=== PATIENT | female | born 1960 | race Caucasian/White ===

== ENCOUNTER 2016-09-25 17:04 | Inpatient (IN) | payer MEDICARE, MEDICAID ==
[~2016-09-25] VITALS: Ht 170.2 cm; Wt 148.3 kg
[2016-09-25 17:08] VITALS: BP 130/70; PULSE 74; RESP 15
[2016-09-25] MEDS ORDERED: Ondansetron 2 mg/mL 2 mL Inj IV PRN (18:45)
[2016-09-25 19:14] LABS: BASOPHILS % (AUTO) 0.1 % (0-3); MONOCYTES % (AUTO) 6.8 % (4-12); Mean Corpuscular Hemoglobin 27.7 pg (27.0-35.0); Mean Corpuscular Volume 94.3 fL (81-100); NEUTROPHILS % (AUTO) 69.2 % (40-74); Platelet Count 330 bil/L (150-400)
[2016-09-25 19:54] LABS: Magnesium 2.3 mg/dL (1.6-2.6)
[2016-09-25] MEDS ORDERED: Meropenem Inj 1,000 MG in IV Premix 1 EACH IV ONE (20:00)
[2016-09-25] MEDS ORDERED: Cefepime Inj 2 GM in IV Premix 1 EACH IV ONE (20:15)
[2016-09-25] MEDS ORDERED: ACET325T51 PO (20:39)
[2016-09-25] MEDS ORDERED: HYDR2TAB27 PO (20:39)
[2016-09-25] MEDS ORDERED: OXYB5TAB35 PO (20:39)
[2016-09-25] MEDS ORDERED: NA P133E23 RC (20:39)
[2016-09-25] MEDS ORDERED: MAGN400O4 PO (20:39)
[2016-09-25] MEDS ORDERED: ASPI-973 PO (20:39)
[2016-09-25] MEDS ORDERED: INSU100I18 SUBQ (20:39)
[2016-09-25] MEDS ORDERED: BISA10SU61 RC (20:39)
[2016-09-25] MEDS ORDERED: FRSM80T PO (20:39)
[2016-09-25] MEDS ORDERED: ATOR80TA77 PO (20:39)
[2016-09-25] MEDS ORDERED: INSU100V7 SUBQ (20:39)
[2016-09-25] MEDS ORDERED: ASCO500C6 PO (20:39)
[2016-09-25] MEDS ORDERED: DOCU250C2 PO (20:39)
[2016-09-25] MEDS ORDERED: IPRA3AMP IH (20:39)
[2016-09-25] MEDS ORDERED: HEPA500017 SUBQ (20:39)
[2016-09-25] MEDS ORDERED: SACC250C PO (20:39)
[2016-09-25] MEDS ORDERED: HYDR2TAB28 PO (20:39)
[2016-09-25] MEDS ORDERED: ONDA-53 PO (20:46)
[2016-09-25] MEDS ORDERED: LEVO100T6 PO (20:46)
[2016-09-25] MEDS ORDERED: NALO12.5 PO (20:46)
[2016-09-25] MEDS ORDERED: LIDO700A6 TP (20:46)
[2016-09-25] MEDS ORDERED: METH5TAB3 PO (20:46)
[2016-09-25] MEDS ORDERED: METO-272 PO (20:46)
[2016-09-25] MEDS ORDERED: ROB500 PO (20:46)
[2016-09-25] MEDS ORDERED: MELA1TAB11 PO (20:46)
[2016-09-25] MEDS ORDERED: MICO45CR10 TOPICAL (20:46)
[2016-09-25] MEDS ORDERED: POLY17PO6 PO (20:46)
[2016-09-25] MEDS ORDERED: PREG75CA PO (20:46)
[2016-09-25] MEDS ORDERED: SENN-133 PO (20:49)
[2016-09-25] MEDS ORDERED: SEVE800T7 PO (20:49)
[2016-09-25] MEDS ORDERED: VENL100T3 PO (20:49)
[2016-09-25] MEDS ORDERED: PANT40TA3 PO (20:49)
[2016-09-25] MEDS ORDERED: ALBU18HF INH (20:49)
--- NOTE | 2016-09-25 21:06 | ED.REPORT ---
HPI-General Illness Date of Service Sep 25, 2016 ED Provider: Josse Lee DO History of Present Illness: Patient is a 55 y.o. F with ESRD, wound of left lateral thigh seen at [facility] one day ago for wound evaluation, and possible surgical debridement. Patient was seen by surgeons at [facility] and decided that surgerical debridement was not indicated. Wound cultures grew out P. Aruginosa, blood cultures were positive for both P. Argunoisa and CRE. At follow up with PCP Dr. Main he reccomended patient be transfered to [facility] ED for sepesis work up and inpatient treatment of infection and inpatient dialysis. Patient stated that she is confused as to why she needed to go to the ED and thinks that all she needs is an IJ placement. Patient stated that she has had sepesis two times in the past and multiple episodes of infection in her skin. Patient stated that she is feeling well but is very cranky and hungry. Nursing Notes Stated Complaint: IJ PLACEMENT Chief Complaint: General Complaint Nursing Notes Reviewed: Yes Allergies: Coded Allergies: bupropion (Verified Allergy, Severe, night terrors, 09/25/16) ciprofloxacin (Verified Allergy, Severe, Nausea,Vomiting, 09/25/16) n/v for days afterwards Uncoded Allergies: DODEINE (Allergy, Intermediate, Nausea,Vomiting, 09/25/16) tyleol #3 Scheduled Ascorbic Acid (Vitamin C) 500 Mg Capsule.er 500 MG PO DAILY Aspirin (Aspirin) 81 Mg Tablet 81 MG PO DAILY Atorvastatin Calcium (Atorvastatin Calcium) 80 Mg Tablet 80 MG PO HS Docusate Sodium (Docusate Sodium) 250 Mg Capsule 250 MG PO BID Furosemide (Furosemide) 80 Mg Tab 80 MG PO DAILY Heparin Sodium,Porcine (Heparin Sodium) 5,000 Unit/1 Ml Vial 5,000 UNIT SUBQ BID Insulin Glargine (Lantus U100 Insulin Vial) 100 Unit/Ml Vial 17 UNIT SUBQ BID Insulin Lispro (HumaLOG U100 Insulin Pen) 100 Unit/1 Ml Insuln.pen 10 UNIT SUBQ TIDAC Ipratropium/Albuterol Sulfate (Iprat-Albut 0.5-3(2.5) mg/3 mL Inhalant Soln) 3 Ml Ampul.neb 3 ML IH Q4 Levothyroxine (Levothyroxine) 100 Mcg Tablet 100 MCG PO DAILY Lidocaine (Lidoderm) 700 Mg Adh..patch 1 PATCH TP DAILY ON for 12hrs/ OFF for 12hrs Methadone (Methadone) 5 Mg Tablet 2.5 MG PO DAILY Hold for sedation Metoprolol Succinate ER (Metoprolol Succinate ER) 50 Mg Tab.er.24h 50 MG PO DAILY Miconazole Nitrate (Miconazole Nitrate) 7 Appl/45 Gm Cream.appl 1 APPL TOPICAL TID For yeast in groin Naloxegol Oxalate (Movantik) 12.5 Mg Tablet 12.5 MG PO DAILY Oxybutynin Chloride ER (Ditropan XL) 5 Mg Tab.er.24 10 MG PO DAILY Pantoprazole DR (Pantoprazole DR) 40 Mg Tablet.dr 40 MG PO BID Polyethylene Glycol 3350 (Miralax) 17 Gm Powd.pack 17 GM PO QPM Pregabalin (Lyrica) 75 Mg Capsule 75 MG PO TID Saccharomyces Boulardii (Florastor) 250 Mg Capsule 250 MG PO BID Sennosides (Senna) 8.6 Mg Tablet 17.2 MG PO BID Sevelamer Carbonate (Renvela) 800 Mg Tablet 3,200 MG PO TIDWM Venlafaxine (Venlafaxine) 100 Mg Tablet 100 MG PO BIDWM Scheduled PRN Acetaminophen (Acetaminophen) 325 Mg Tablet 1-2 EACH PO Q4H PRN PRN For Pain Albuterol Sulfate (Ventolin HFA Inhaler) 200 Puff/18 Gm Inhaler 1-2 PUFF INH Q4 PRN PRN For Shortness of Breath Bisacodyl (Dulcolax Rectal) 10 Mg Supp.rect 10 MG RC DAILY PRN PRN For Constipation If no BMx12 shifts Hydromorphone (Dilaudid) 2 Mg Tablet 1-2 MG PO DAILY PRN PRN dressing changes Hydromorphone (Hydromorphone) 2 Mg Tablet 2 MG PO QID PRN PRN Pain Magnesium Hydroxide (Milk of Magnesia) 400 Mg/5 Ml Oral.susp 30 ML PO DAILY PRN PRN For Constipation If no BMx9 shifts Melatonin/Pyridoxine (Melatonin 3 mg Tablet) 1 Each Tablet 2 EACH PO HS PRN PRN Insomnia May repeat x1 Methocarbamol (Methocarbamol) 500 Mg Tablet 1,000 MG PO QID PRN PRN For Pain Na Phos,M-B/Na Phos,Di-Ba (Fleet Enema) 133 Ml Enema 133 ML RC DAILY PRN PRN For Constipation If no BMx15 shifts Ondansetron (Ondansetron) 4 Mg Tablet 4 MG PO TID PRN PRN For Nausea General Time Seen by MD: 18:18 Transferred From: residential Chief Complaint Other (Left thigh wound, positve blood cultures) Hx Obtained From: Patient Sudden in Onset?: No Past Medical History Past Medical History Urinary tract infection, site unspecified Type 2 diabetes mellitus with chronic kidney disease on chronic dialysis, with long-term current use of insulin End stage renal disease intermediate (current) use of insulin Dependence on renal dialysis Infected prosthetic mesh of abdominal wall, sequela ESRD (end stage renal disease) on dialysis Dependence on renal dialysis Mixed hyperlipidemia Weakness Medial epicondylitis, right elbow Vaginal bleeding Hoarseness Past Surgical History Sinus surgery Ovarian cyst removal Endometrial ablation Smoking History Unknown if Ever Smoker Social History Alcohol Use: Denies alcohol use Review of Systems Full Review of Systems Constitutional: Reports: Fatigue, Denies: Chills, Fever Eyes: Denies: Blurred bilateral Ears / Nose / Throat: Denies: Ear drainage bilateral Respiratory: Denies: Dyspnea on exertion, Non-productive cough, Pleuritic pain Cardiovascular: Reports: Edema, Denies: Chest pain, Dyspnea on exertion Female: Denies: Dysuria, Flank pain, Hematuria Musculoskeletal: Reports: Extremity pain (left thigh and right thigh) Complete sys rev & neg: except as marked. Physical Exam Vital Signs Vital Signs Date Time Temp Pulse Resp B/P Pulse Ox O2 Delivery O2 Flow Rate FiO2 09/25/16 17:08 37.4 74 15 130/70 Room Air Initial VS: Reviewed General/Constitutional: Well-developed, Well-nourished Head / Eyes: Atraumatic, Normocephalic, PERRL ENT: Mucous membranes moist, Conjunctiva normal, No scleral icterus Neck: Supple, Non-tender, Full range of motion Respiratory: Breath sounds normal, Clear to auscultation, No respiratory distress Cardiovascular: Regular rate & rhythm, Heart sounds normal, Intact distal pulses Abdomen / GI: Soft, Non-tender, No guarding, No rebound, No distention Back: No CVA tenderness Lymphatic: No lymphadenopathy Neurologic: Alert, Oriented, Nonfocal Psychiatric: Mood/affect normal, Behavior normal, Normal thought content Right Thigh: Positive: Swelling present... (Mild), Tenderness present... (Mild) Left Thigh: Positive: Swelling present... (moderate swelling, draining would with wound vac placed left lateral thigh), Tenderness present... (Moderate, wound right lateral thigh dressed, no active drainage noted), Warmth present Right Leg / Calf: Positive: Erythema present, Swelling present... (Moderate to severe with chronic venous status changes), Tenderness present... (Moderate) Left Leg / Calf: Positive: Erythema present, Swelling present... (Moderate to severe with chronic venous status changes ), Tenderness present... (Moderate) Interpretation & Diagnostics Lab Results Interpretation Result Diagram: 09/26/16 0335 09/26/16 0335 Test 09/25/16 19:00 Lactic Acid Level 1.1mmol/L (0.4-2.0) Magnesium Level 2.3mg/dL (1.6-2.6) Procalcitonin 0.52ng/mL (0.00-0.08) Hold Guerra Top Tube Received (Received) Re-Eval/Medical Decision Med Decision/Clinical Course Patient is a 55 y.o. F with history of ESRD on dialysis with pic line placed, scheduled for dialysis tomorrow, with postive blood culture for P.aruginosa and CRE. Patient has history of wound infection, current left thigh wound with vac placed, history of sepesis. Patient will need repeat blood cultures, last cultures show pseudomonas sensitivity to Cefepime. Patient current condition meets necesity for inpatient treatment of infection and dialysis. Start Cefepime 2 G IV once in ED Repeart blood cultures CBC Elevated white count 12.4 CMP Cr 5.03 BUN 26 Nephrology Consulted ID consulted Consultation #1: Referral / Consult Name: Joel Cortes DO Consulted With: Nephrology Requested Call at: 21:00 Call Returned at: 21:00 Substation Inspector: Will see patient, Agrees with plan Consultation #2: Referral / Consult Name: Joel Boss MD Requested Call at: 21:04 Call Returned at: 21:04 Substation Inspector: Will see patient, Agrees with plan Note: Agrees with starting Cefepime 2 g recomends Q 24 hrs due to ESRD Severity: Serious condition Counseled Regarding: Diagnosis, Need for admission Discharge & Departure Primary Impression: Open wound of left thigh Encounter type: initial encounter Qualified Code: S71.102A - Unspecified open wound, left thigh, initial encounter Additional Impressions: ESRD (end stage renal disease) Blood bacterial culture positive History of sepsis Dialysis patient Disposition: ADMITTED TO HOSPITAL Discharge Condition All VS Reviewed: Yes Condition: Stable Referrals: Geronimo Main DO (PCP) Attending Statement This is an incredibly complicated medical case. I took a history and performed examination. I tried to obtain records from [place] however they told me she was not been there. Dr. Main was involved. My resident spoke with him. His recommendations are admission for IV antibiotics. We chose cefepime because we are told she is growing Pseudomonas out of her blood. She may well be growing CRE. Either way were going to admit her. Consult infectious disease. Consult nephrology and try to sort out exactly what is going on. There is no way I could pull this off out of the emergency department. copies to: Geronimo Main AARON J DO Sep 25, 2016 18:19 Josse Lee DO Sep 26, 2016 19:20 Magnesium Level 2.3mg/dL (1.6-2.6) Total Bilirubin 0.2mg/dL (0.0-1.2) Aspartate Amino Transf (AST/SGOT) 6U/L (0-50) Alanine Aminotransferase (ALT/SGPT) 6U/L (0-32) Alkaline Phosphatase 84U/L (25-150) Total Protein 7.3g/dL (6.4-8.4) Albumin 3.5g/dL (3.4-5.0) Procalcitonin 0.52ng/mL (0.00-0.08) Hold Guerra Top Tube Received (Received) Re-Eval/Medical Decision Med Decision/Clinical Course Patient is a 55 y.o. F with history of ESRD on dialysis with pic line placed, scheduled for dialysis tomorrow, with postive blood culture for P.aruginosa and CRE. Patient has history of wound infection, current left thigh wound with vac placed, history of sepesis. Patient will need repeat blood cultures, last cultures show pseudomonas sensitivity to Cefepime. Patient current condition meets necesity for inpatient treatment of infection and dialysis. Start Cefepime 2 G IV once in ED Repeart blood cultures CBC Elevated white count 12.4 CMP Cr 5.03 BUN 26 Nephrology Consulted ID consulted Consultation #1: Referral / Consult Name: Joel Cortes DO Consulted With: Nephrology Requested Call at: 21:00 Call Returned at: 21:00 Substation Inspector: Will see patient, Agrees with plan Consultation #2: Referral / Consult Name: Joel Boss MD Requested Call at: 21:04 Call Returned at: 21:04 Substation Inspector: Will see patient, Agrees with plan Note: Agrees with starting Cefepime 2 g recomends Q 24 hrs due to ESRD Severity: Serious condition Counseled Regarding: Diagnosis, Need for admission Discharge & Departure Primary Impression: Open wound of left thigh Encounter type: initial encounter Qualified Code: S71.102A - Unspecified open wound, left thigh, initial encounter Additional Impressions: ESRD (end stage renal disease) Blood bacterial culture positive History of sepsis Dialysis patient Disposition: ADMITTED TO HOSPITAL Discharge Condition All VS Reviewed: Yes Condition: Stable Referrals: Geronimo Main DO (PCP) copies to: Geronimo Main AARON J DO Sep 25, 2016 18:19
[2016-09-25] MEDS ORDERED: Alum-Mag Hydrox-Simeth 30 mL Suspension PO PRN (21:45)
[2016-09-25] MEDS ORDERED: Polyethylene Glycol (PEG) 17 Gm Powder PO PRN (21:45)
[2016-09-25] MEDS ORDERED: Ondansetron 2 mg/mL 2 mL Inj IVPUSH PRN (21:45)
[2016-09-25 21:47] VITALS: BP 119/54; PULSE 78; RESP 16; O2SAT 94
--- NOTE | 2016-09-25 22:10 | NUR ---
Admit Note: Report received from David Escudero RN. Pt. arrived to room 2027 at 2210 via stretcher. Pt. transferred to total care bariatric bed via lateral transfer and total staff assist. Wound vac dressing in place to left thigh, pt. to have wound care consult in a.m. Wound to right thigh and right buttock, non-adherent dressing placed to each site. No overt signs or symptoms of distress. Pt. alert and oriented X3, intermittently agitated towards staff. Telemetry sinus rhythm.
[2016-09-25 22:19] VITALS: BP 119/54; PULSE 78; RESP 16; O2SAT 94
[2016-09-25 22:30] VITALS: PULSE 73; RESP 20; O2SAT 93
[2016-09-26] VITALS (9 sets, daily range): BP systolic 107–162; BP diastolic 43–78; PULSE 69–80; RESP 20–24; O2SAT 93–99
[2016-09-26] MEDS ORDERED: Heparin 5,000 Unit/mL Inj SUBQ SCH (00:30)
[2016-09-26] MEDS ORDERED: Magnesium Hydroxide 355 mL Oral Suspension PO PRN (01:05)
[2016-09-26] MEDS ORDERED: Sodium Biphos-Phos 133 mL Enema RECTAL PRN (01:05)
[2016-09-26] MEDS ORDERED: Glucose 40% Oral Gel 15 Gm Tube PO PRN (01:25)
[2016-09-26] MEDS ORDERED: Albuterol 1.25 mg/3 mL Inhalation Solution NEB PRN (01:25)
[2016-09-26] MEDS: Albuterol-Ipratropium 3 mL Inhalation Solution NEB SCH ×3 (02:30→14:30)
--- NOTE | 2016-09-26 02:54 | PCM.HPMED ---
Subjective Date of Service Sep 25, 2016 Primary Provider: Admitting Physician: Jenny Green DO Primary Care Physician: Geroniom Main DO Attending Physician: Jenny Green DO Admit Status: From the Emergency Department Chief Complaint: Bacteremia History of Present Illness: Patient is a 55-year-old female with ESRD, calciphylaxis, diabetes mellitus, hypertension, CAD and morbid obesity presenting as a referral from her PCP for bacteremia and thigh wound cultures positive for CRE and pseudomonas. Per medical records, patient is followed by wound care and debridement was recommended for the patient's thigh wounds; however, due to difficulty arranging debridement with a surgeon the patient was referred to [facility] ED for debridement. The patient's wounds were reportedly covered with a thick white -green discharge that was believed to be colonization. The patient underwent debridement in the ED and discharged. Results of the wound and blood cultures showed pseudomonas and CRE, and the patient was subsequently referred to [facility] for treatment. In the ED, vitals: temp 37.4, HR 74, RR 15, BP 137/70. Notable labs: WBC 12.4, K 5.5, BUN 26, creatinine 5.03. Dr. Boss of Infectious Disease was contacted and recommends cefepime 2g Q24 hours, which was started in the ED. Review of Systems: A comprehensive review of systems was conducted with the patient and found to be negative except as above in the History of Present Illness. Allergies Coded Allergies: bupropion (Verified Allergy, Severe, night terrors, 09/25/16) ciprofloxacin (Verified Allergy, Severe, Nausea,Vomiting, 09/25/16) n/v for days afterwards Uncoded Allergies: DODEINE (Allergy, Intermediate, Nausea,Vomiting, 09/25/16) tyleol #3 Home Medications Medication list per [employer]. Needs to be reconciled with [place] Home: aspirin 81mg daily atorvastatin 80mg at bedtime Ditropan XL 5 mg daily docusate sodium 250mg BID ferrous sulfate 325 mg (65 mg iron) daily Florastor 250mg BID furosemide 80mg daily heparin 5,000 unit/mL SQ BID for DVT prophlyaxis Humalog KwikPen 100 unit/mL subcutaneous inject 10 units by subcutaneous route 3 times every day before meals hydromorphone 2mg every 6 hours as needed for pain ipratropium-albuterol 0.5 mg-3 mg(2.5 mg base)/3 mL Inhale 3 ml every 4 hours as needed for shortness of breathe Lantus Solostar 100 unit/mL (3 mL) Inject 17 unit subcutaneously BID levothyroxine 100 mcg tablet lidocaine 5 % topical patch daily lisinopril 5mg daily Lyrica 75 mg TID melatonin 6mg tablet QHS methadone 2.5 mg tablet daily methocarbamol 1000mg every 6 hours as needed for pain Micatin 2 % topical cream. Apply to groin folds topically three times a day miconazole nitrate 2 % topical cream. apply by topical route 3 times every day to the affected area (bilateral groins) Nasonex 50 mcg/actuation. 2 sprays by intranasal route every day in each nostril ondansetron HCl 4mg every 8 hours as needed pantoprazole 40mg BID polyethylene glycol 17gram daily Senna Concentrate 17.2mg tablet BID sevelamer carbonate 800mg TID sodium chloride 0.9 % injection solution Instill 10 ml every 12 hours to ensure central line patency Toprol XL 50 mg daily venlafaxine 100mg BID Ventolin HFA 90 mcg/actuation. Inhale 1 - 2 puffs by inhalation route with spacer every 4 - 6 hours PRN Vitamin C 500mg daily PMH Type 2 diabetes mellitus Hypothyroidism GERD Asthma Dyslipidemia Depression Chronic constipation ESRD on HD Chronic respiratory failure CAD with history of NSTEMI Hypertension Urinary incontinence Lower extremity lymphedema History of ruptured ovarian cyst . Surgical History Sinus surgery Tonsillectomy Endometrial ablation Family History Mother is alive with hypertension Father is alive with prostate cancer and Parkinson's Social History Occupation: Disability Hx Alcohol Use: No Hx Substance Use: No Hx Tobacco Use: No Smoking Status: Unknown if Ever Smoker Living Arrangement: Retirement Facility Exam Vital Signs Vital Sign - Last Date Time Temp Pulse Resp B/P Pulse Ox O2 Delivery O2 Flow Rate FiO2 09/25/16 21:47 37.9 78 16 119/54 94 Nasal Cannula 2 Exam General: No acute distress, well-developed, well-nourished, appropriately interactive HEENT: Normocephalic, atraumatic. External ears without defect. Pupils equal, round, and reactive to light. Anicteric sclerae, moist conjunctivae, and no lid lag. Oropharynx free of erythema and cobble stoning with moist mucosa. Nasal cannula in place. Neck: Supple with full range of motion. No jugular venous distension. No bruits. No lymphadenopathy or thyromegaly. Chest: Right chest with tunneled HD catheter. Regular rate and rhythm with no murmurs, rubs, or gallops appreciated Pulmonary: Clear anteriorly to auscultation bilaterally with no crackles, wheezes, or rhonchi. Normal respiratory effort with no use of accessory muscles. Abdomen: Decreased bowel tones. Soft, nontender, distension. Multiple sites of ecchymosis from injections Extremities: Right thigh with two ulcers covered in clean, dry dressing. Wounds had a thick green and white discharge adherent to the dressing. Left thigh wound with wound vac dressing. Chronic venostasis changes lower extremities bilaterally. Skin: Normal temperature, turgor, and texture; no rash, ulcers, or subcutaneous nodules appreciated. Neurological: Cranial nerves grossly intact. Psychiatric: Antagonistic personality. Alert and oriented to person, place, and time. Lab and Diagnostics Result Diagram: 09/25/16189909/25/161899 Assessment & Plan Patient is a 55-year-old female with ESRD, calciphylaxis, diabetes mellitus, hypertension, CAD and morbid obesity presenting as a referral from her PCP for bacteremia and thigh wound cultures positive for CRE and pseudomonas. 1. Acute bacteremia. Present on admission. Active -Reportedly positive for pseudomonas at [facility], [place] -Blood cultures pending -Dr. Boss of Infectious Disease to follow. Recommendations per ID appreciated -Cefepime 2g Q24 hours per Dr. Boss 2. Bilateral thigh ulcers, chronic. Present on admission. Active -Culture of wound reportedly positive for CRE and pseudomonas at [facility] -s/p debridement of right thigh wound (09/24/2016) at [facility]. Wound vac dressing in place, wound vac not connected -Wound Care consult -Antibiotics per above 3. ESRD, chronic. Present on admission. Active -Followed by Dr. Jon outpatient -HD on Wed, Wed, Wed -Nephrology following. Recommendations per Nephrology appreciated 4. Acute hyperkalemia. Present on admission. Active -Mildly elevated at 5.5 -Dialysis anticipated for tomorrow (09/26) -Follow with CMP 5. Calciphylaxis, chronic. Present on admission. Active -Need to verify dose of Renvela. All outpatient records mention 800mg TIDWM but patient states this is 3200mg TID 6. Type 2 diabetes mellitus, chronic. Present on admission -Bedside blood glucose checks -Continue home dose Lantus BID -Nutritional and correctional Lispro. Will likely need titration 7. Hypothyroidism, chronic. Present on admission -Continue home dose levothyroxine 8. Chronic respiratory failure. Present on admission -Uncertain etiology. Possibly secondary to obesity hypoventilation -Consider sleep study outpatient to assess for JEANETTE 9. Asthma, chronic. Present on admission -Albuterol PRN, DuoNeb QID 10. GERD, chronic. Present on admission -Continue home dose PPI 11. Dyslipidemia, chronic. Present on admission -Continue home dose statin 12. Depression, chronic. Present on admission -Continue home dose Effexor 13. Chronic constipation. Present on admission -Bowel regimen with Ying-Lax, Senna, Dulcolax, Fleets enema PRN 14. CAD with history of NSTEMI, chronic. Present on admission -Continue home dose metoprolol, statin, ASA 15. Hypertension, chronic. Present on admission -Continue home dose metoprolol, Lasix 16. Urinary incontinence, chronic. Present on admission -Continue home dose oxybutynin Patient Status: Patient is admitted under inpatient status with expected length of stay greater than 2 midnights due to risk of adverse event, and complexity of treatment plan. VTE Prophylaxis: Sub-Q Heparin (Unfractionated) Resuscitation Status: CPR: Attempt Resuscitation Attending Statement The patient was seen and examined together with house staff on 09/25/2016 and I agree with the history, exam and plan as outlined in the note above. Alonso Hartman DO Sep 25, 2016 22:32 Jenny Green DO Sep 26, 2016 03:22
[2016-09-26] MEDS ORDERED: Magnesium Hydroxide 10 mL Oral Concentration PO PRN (03:27)
[2016-09-26 04:05] LABS: BASOPHILS % (AUTO) 0.1 % (0-3); EOSINOPHILS % (AUTO) 3.9 % (0-5); MONOCYTES % (AUTO) 9.7 % (4-12); Mean Corpuscular Hemoglobin 27.6 pg (27.0-35.0); Mean Corpuscular Volume 95.3 fL (81-100); NEUTROPHILS % (AUTO) 57.1 % (40-74); Platelet Count 300 bil/L (150-400)
[2016-09-26] MEDS: Tolterodine ER 4 mg ER24 Capsule PO SCH (08:30)
[2016-09-26] MEDS: MICONAZOLE 2% TOPICAL SCH ×3 (08:30→20:30)
[2016-09-26] MEDS: MeTOProlol XL 50 mg ER24 Tablet PO SCH (09:28)
[2016-09-26] MEDS: Pantoprazole 40 mg ER24 Tablet PO SCH ×2 (09:31→21:25)
[2016-09-26] MEDS: Ascorbic Acid 500 mg Tablet PO SCH (09:31)
[2016-09-26] MEDS: Heparin 5,000 Unit/mL Inj SUBQ SCH ×2 (09:37→21:25)
[2016-09-26] MEDS: Lidocaine Topical 5% Patch TOPICAL SCH (09:38)
[2016-09-26] MEDS: Insulin LISPRO 300 Unit/3 mL Inj SUBQ SCH ×4 (09:59→21:20)
[2016-09-26] MEDS: Insulin GLARgine 100 Unit/mL Syringe SUBQ SCH ×2 (10:00→21:45)
[2016-09-26] MEDS: Polyethylene Glycol (PEG) 17 Gm Powder PO SCH (10:22)
--- NOTE | 2016-09-26 12:09 | CONS ---
[address] [address] CONSULTATION REPORT PATIENT: CALEB UGARTE : 1960 MR#: [id number] ADMIT: 09/25/2016 JOB ID: [id number] DATE OF SERVICE: 09/26/2016 INFECTIOUS DISEASE CONSULTATION: I thank Dr. Paul for this timely consult. REASON FOR CONSULTATION: CRE wound infection. HISTORY OF PRESENT ILLNESS: The patient is an incredibly complicated 55-year-old woman who has not previously been seen at this hospital. She has been admitted many times and received a great deal of medical care through the [facility] in [place] over the course of the past year so. During the past year the patient relates that she has developed end-stage renal disease which has required the initiation of hemodialysis. This has been complicated by calciphylaxis apparently involving both thighs and perhaps her right buttock. She has been septic twice in the past 12 months including one episode from infected mesh in her pelvis which could not be removed and another episode of sepsis was apparently caused by some sort of intravascular device, though that part of the history is unclear. Most recently the patient has been living at [facility] in [place]. On the , two days ago, the halfway attending physician, Dr. Main, recommended she be sent to [facility] once again and admitted for debridement of an increasing left lateral thigh abscess/calciphylaxis wound. The patient was evaluated and sent back to the halfway at [place] and she did not receive debridement there. While she was at [place] on the two blood cultures were done and apparently one or more wound cultures was done. I have spent about 30 minutes on the phone with [facility] in [place] trying to sort this out. Last night I was called about this patient and told that a blood culture was growing CRE, but it turns out that a wound culture done on the while she was being evaluated at [place] grew CRE. I am trying to get the [facility] lab to fax those cultures, so far to no avail, but the [employer] tech did tell me that this was a wound culture from the thigh wound and I assume the left thigh as this is the bigger of the two wounds. The blood cultures are absolutely negative at 48 hours. Of interest, a week ago the patient also had cultures done of the left thigh abscess which grew Pseudomonas aeruginosa that was quite sensitive. As part of doing this consult I reviewed about 100 pages of notes from [facility]. Unfortunately these do not include some of the leon culture data but do include data from about July 2016 up to the ED visit on September 24, 2016. I also discussed this case in detail with Dr. Cortes and with the [facility] team and nursing. The patient is a bit of a reluctant historian as she states too many doctors have been asking too many questions. She tells me that she feels about the same as she did a week or even two weeks ago and that she has many many ongoing issues but they do not seem especially worse lately. She says she had a subjective fever yesterday afternoon but otherwise has not had fevers, chills, or sweats recently. She uses oxygen for the past couple of months but does not think she needs it anymore. She states her respiratory status is about at baseline and she has not had any increased cough, shortness of breath, or chest pain. She notes she is unable to walk and has been for months secondary to progressive debility related to her multiple days in the hospital and residence in the SNF. She states she has pain at the site of her bilateral thigh wounds, and especially on the left side, and has requested that I not remove the wound VAC on the left thigh or the dressing over the right thigh as it is too painful. She is chronically maintained on Dilaudid for pain and the chart notes note that at times she has been overmedicated with opiates and required Narcan. She states her pain is about at baseline at this point. PAST MEDICAL HISTORY: 1. Diabetes mellitus. 2. End-stage renal disease with dialysis for the past 10 months. 3. Calciphylaxis, which she states is biopsy proven, though I do not see the records to prove that. 4. Morbid obesity with BMI above 50. 5. History of abdominal hernia repair with mesh which subsequently became infected and has led to sepsis; that mesh is still in place. 6. Lymphedema. 7. Asthma. 8. Coronary artery disease with history of cardiomyopathy noted in the chart. 9. Hypertension. 10. Hyperlipidemia. 11. Trichotillomania. SOCIAL HISTORY: The patient states she used to own her own home in the [facility] but gradually has developed more and more health problems, has become disabled, and eventually moved to low-income housing in [place]. From there she has entered into this current regimen where she has been bouncing back and forth between [facility] and [facility] in [place]. She does not smoke cigarettes. She does not drink alcohol and does not use illicit drugs. FAMILY HISTORY: Positive for bipolar disorder as well as diabetes in her sister. Her sister about a year ago. There is no family history of tuberculosis including her parents or siblings. REVIEW OF SYSTEMS: Was done. The patient states she has occasional headaches but these are not more severe than normal. She has no visual change. She has had no sore throat or pharyngitis. She denies stiff neck. She has had no problems with the right chest dialysis catheter. She has never had a fistula. She has some degree of baseline minimal cough and shortness of breath for which she wears oxygen the past couple of months at the halfway but she states it is not any worse lately. No chest pain. She has had no nausea or vomiting or diarrhea. She states, in fact, she has constant constipation. No genitourinary symptoms. She has chronic lymphedema; her legs are always swollen and they are quite weak. She has not been able to take any steps recently and the best activity level she has had recently is sitting on the side of the bed, which she regards as a major improvement over where she has been the last couple months. Her legs and arms are extremely weak by her report. The remainder of the review of systems is negative. PHYSICAL EXAMINATION: Reveals an afebrile woman temperature 37.1 degrees, pulse 80, respiratory rate 20, blood pressure 162/63. She is saturating 95% on 1 L. The patient's mental status seems clear. She has does seem, however, to be depressed and expresses a lot of fault with various physicians and hospitals she has interacted with over the past few months or years. Examination of the head shows no trauma. The eyes have pale conjunctivae, but no conjunctival hemorrhages. Extraocular movements intact. Oral cavity without pharyngitis. Neck is supple. No adenopathy is noted. Right chest dialysis catheter is benign at its entrance site. The upper extremities are without notable abnormality. A peripheral IV is present in the right upper extremity. Lungs relatively clear, though the patient does not take really deep breaths, and no rales or rhonchi are noted. Cardiac tones regular rate and rhythm, without murmur. Heart tones somewhat distant. Abdomen is quite obese, soft and nontender, without organomegaly. No suprapubic tenderness is noted. She does not have a Hummel catheter. I do not detect any tenderness in the lower abdomen at the site where she reports having had infected mesh last spring that led to sepsis. The lower extremities are notable for lymphedema with venous stasis changes below the knees. She does have intact peripheral pulses in her feet with reasonable capillary refill. The strength in the extremities is much diminished, probably 4/5 perhaps. There is considerable dryness and cracking of the skin around the feet, as well as the venous stasis changes between the knee and the ankle. The patient has a wound VAC measuring about 10 x 5 cm present over the left lateral thigh. She refused to have this removed. Over the right lateral upper thigh there is a wound dressing and she refused to have this removed. It is hard to estimate how large the wound is under that area. The patient is uncomfortable and does not want to be rolled or moved at this point, so I cannot evaluate whether or not there is a buttock lesion. LABORATORY STUDIES: Include white count 12,300, platelet count 300,000 with normal diff on the white count. Creatinine 5.2. LFTs completely normal. Procalcitonin 0.5, which is probably normal for end-stage renal disease. Cultures done here include two sets of blood cultures. We have no imaging. The micro available from [facility] is scant so far, and I have requested all the micro be sent, but we do know from September 18 she had a Pseudomonas the grew from a left thigh wound which was very susceptible to all standard pseudomonal agents. We also have negative blood cultures from the and a wound which is reported by the micro tech to be growing CRE. I am trying hard to get the rest of the micro records so that we can more properly examine the CRE results. IMPRESSION: At this point I see little evidence the patient has an acute infection. We do know that her left thigh calciphylaxis wound has colonized and we have cultures from 10 days ago growing Pseudomonas and now apparently from two days ago growing a CRE. In a patient who has been hospitalized off and on for a year, and has received many many of broad-spectrum antibiotics, and has had an open calciphylaxis wound for an extended period, it is not surprising that we are breeding more and more resistant organisms. The trick in a case like this is to know whether or not she is colonized with a CRE and/or Pseudomonas, or whether she is actually infected. Having never met this patient, it is hard to know what her baseline is, but she reports she feels about the same as always and I am not sanguine about the initiation of broad-spectrum antibiotics in this situation. RECOMMENDATIONS: 1. I would discontinue the cefepime and meropenem she has received. 2. I think it is reasonable to watch the patient closely while we obtain these records from [place] to see the exact susceptibilities on the CRE. If indeed this is a CRE, drugs like meropenem and cefepime will be of no value. 3. When Wound Care comes to change her wound VAC I think it would be reasonable to get some good deep cultures so we can have access to those at our micro lab so we can do susceptibilities for some of the new antibiotics including ceftazidime/avibactam as well as ceftolozane/tazobactam, and as well as colistin and tigecycline. 4. If the patient is to require a prolonged hospital stay, I think the reasonable to transfer her back to [facility] where she has apparently been hospitalized by her report over 70 days in the past year. She has many physicians there who know her well, including her machine woodworking sander, and if this is to be a long-term issue I think that would make more sense than for an entirely new group physicians to meet her here. 5. This case discussed with Dr. Cortes, as well as Dr. Paul. This case involved a great deal of records review, interview, and other data gathering, requiring well over 70 minutes.
--- NOTE | 2016-09-26 13:14 | CONS ---
[address] [address] CONSULTATION REPORT PATIENT: CALEB UGARTE : 1960 MR#: [id number] ADMIT: 09/25/2016 JOB ID: [id number] DATE OF SERVICE: 09/26/2016 RENAL CONSULTATION: HISTORY: The patient is a 55-year-old lady who was admitted to [facility] for possible bacteremia and thigh wound infections. She has a history of end-stage renal disease, and renal consultation is being sought for management of her dialysis needs. She states that she has been on dialysis since October of 2015. The etiology of her renal failure is due to longstanding complicated insulin-requiring diabetes mellitus and hypertension. Her diabetes has been complicated by retinopathy and peripheral neuropathy. There is also a history of morbid exogenous obesity and coronary artery disease. She states that she normally dialyzes between 3-1/2 and 4 hours at the [facility] facility and she is being followed by an outside strip mine supervisor. She also states that she has a history of calciphylaxis involving lesions on the lateral aspects of both hips. She has been residing in a rehabilitation facility for some time. Apparently the wounds had a greenish discharge and these were debrided and the patient was in the emergency department at [place] and sent home. Subsequently these reportedly grew out Pseudomonas and CRE. As a result of this, came in. She was referred here for admission. PAST MEDICAL HISTORY: Is significant for: 1. End-stage renal disease. 2. Diabetes mellitus with multiple end-organ involvement. 3. Hypertension with hypertensive heart disease and hypertensive nephrosclerosis. 4. Calciphylaxis. 5. Coronary artery disease. 6. Neurogenic bladder. 7. Chronic pain. 8. Hyperlipidemia. 9. Obesity hypoventilation syndrome with chronic respiratory issues. 10. Lymphedema. 11. History of a ruptured ovarian cyst. PAST SURGICAL HISTORY: Is significant for several failed attempts at AV fistulas in the left arm, a tunnel catheter, sinus surgery, endometrial ablation, and tonsillectomy. ALLERGIES: She is allergic to CODEINE, BUPROPION and CIPROFLOXACIN. SOCIAL HISTORY: She is currently on disability and lives in a alf facility. She denies a history of any alcohol, tobacco or illicit drug use. She is on a number of medications which are detailed in the chart. FAMILY HISTORY: Unremarkable for any renal problems. REVIEW OF SYSTEMS: Detailed above. Otherwise is unremarkable. PHYSICAL EXAMINATION: Reveals a morbidly obese 55-year-old white female, who was alert and oriented x3, in no distress at the time my evaluation. Her pulse was 80, blood pressure is 162/63 with a pulse rate of 20. HEENT examination is remarkable for pale sclerae. Neck is supple without adenopathy. It was difficult to fully assess her jugular venous distention because of morbid obesity. Her lungs were grossly clear. However, a very limited pulmonary examination was performed because of the patient's inability to ambulate and poor inspiratory effort. Heart was regular and rhythmical. Abdomen was markedly pendulous and there was evidence of intertriginous candidiasis. There was no tenderness, rebound, guarding, masses or hepatosplenomegaly. Extremities showed evidence of chronic lymphedema with some mild pitting component to it bilaterally. She had evidence of erythema to both distal lower extremities. Two lesions on each hip were under a sterile dressing and this was not removed. LABORATORY EXAMINATION: This morning, her white count is 12.3, hemoglobin of 9.5, hematocrit 32.8. Red cell indices, platelet count and differential were normal. Sodium is 139, potassium 5.2, chloride 95, CO2 of 24. BUN and creatinine 32 and 5.2. Albumin is low at 3.3. IMPRESSION: 1. End-stage renal disease-dialysis dependent. 2. Diabetic nephropathy. 3. Hypertension with hypertensive heart disease and hypertensive nephrosclerosis. 4. Calciphylaxis. RECOMMENDATION: The patient is to be dialyzed today for hours on a 2 potassium bath, 400 blood flow, 600 dialysate flow, 1500 heparin and 500 an hour. 2-3 L of fluid to be removed and 25 g of sodium thiosulfate to be given during the treatment. Once again, I would like to thank you for allowing me to participate in the care of this most pleasant and interesting patient. I will be following her closely with you.
[2016-09-26] MEDS ORDERED: Sodium Thiosulfate 25% 12.5 Gm/50 mL Inj IV ONE (13:50)
--- NOTE | 2016-09-26 14:46 | NUR ---
Social Work: Assessment D&A: See initial assessment. PROGRAM MANAGER ENVIRONMENTAL PLANNING reviewed EMR, which states pt is at [facility] with chronic renal failure and wounds. Pt primary insurance is [employer] Medicare with a [facility] supp; PCP is Geronimo Main DO. Pt readmit score has not yet been assessed. PROGRAM MANAGER ENVIRONMENTAL PLANNING met with pt at bedside and explained PROGRAM MANAGER ENVIRONMENTAL PLANNING role. Pt reports that she is originally from home alone in an apartment with no external/ internal steps. Pt is currently coming to [facility] from [facility] and anticipates a return to this facility; pr requests transfer via BLS. Pt uses a walker and a cane at base but has not been able to ambulate for some time. Pt has a [employer] caregiver for 160 hours per month; pt does not know who her HCS CM is. Pt drives but has historically had M[employer] and [employer]. Advanced directive info declined. P: Pt likely to d/c back [facility] via BLS vs. cabulance. PROGRAM MANAGER ENVIRONMENTAL PLANNING will follow for d/c planning and additional needs. PAULA Overton Addendum: 09/26/16 at 1455 by AFIA NELSON Amended: Links added.
--- NOTE | 2016-09-26 14:50 | NUR ---
Dialysis Pt. transferred from room [facility] to room 244 [facility] for dialysis. Pt. VS stable upon departure, on 1L NC. Pt. was able to eat lunch prior to leaving. Transfer report given to Francy PORTILLO and Pt. did not appear to be in any immediate distress upon arrival to [facility].
--- NOTE | 2016-09-26 14:55 | NUR ---
Pt arrived to [facility]: Pt arrived to [facility] for dialysis treatment. Report given by Greg Paris RN. Pt on tele in , telecommunication equipment repairer aware of transfer. Pt appears stable at time of arrival. Addendum: 09/26/16 at 1826 by SHOSHANA EUGENE RN Pt is completing dialysis treatment and will return to her unit at 184. Pt tolerated treatment. Tele monitor aware of return time to unit. Report called to Greg Paris RN. Addendum: 09/26/16 at 1844 by SHOSHANA EUGENE RN Pt left the unit with [facility] staff at 1845.
[2016-09-26] MEDS ORDERED: Albuterol-Ipratropium 3 mL Inhalation Solution NEB PRN (15:35)
--- NOTE | 2016-09-26 18:42 | PCM.PNMED ---
Subjective Date of Service Sep 26, 2016 Subjective Patient is a 55-year-old female with ESRD, calciphylaxis, diabetes mellitus, hypertension, CAD and morbid obesity presenting as a referral from her PCP for bacteremia and thigh wound cultures positive for CRE and pseudomonas. This morning, she has bilateral thigh pain at her wound sites that was not relieved by the Dilaudid she has been given. She has a stuffy nose. She does not have fever or chills. Today is her usual dialysis day. Exam Vital Signs Vital Sign - Last Date Time Temp Pulse Resp B/P Pulse Ox O2 Delivery O2 Flow Rate FiO2 09/26/16 14:36 74 09/26/16 12:12 37.0 24 115/43 99 Nasal Cannula 1.00 Intake and Output 09/25/16 09/25/16 09/26/16 Cumulative From/Thru 15:00 23:00 07:00 09/25/16 17:08 - 09/26/16 06:20 Intake Total 300 ml 300 ml Output Total 0 ml 0 ml Balance 300 ml 300 ml Intake Oral 300 ml 300 ml Output Urine Total 0 ml 0 ml # Voids 0 0 # Bowel Movements 0 0 Exam General: Obese, no acute distress, well-developed, appropriately interactive HEENT: Normocephalic, atraumatic. External ears without defect. Pupils equal, round, and reactive to light. Anicteric sclerae, moist conjunctivae, and no lid lag. Oropharynx free of erythema and cobble stoning with moist mucosa. Nasal cannula in place. Neck: Supple with full range of motion. No jugular venous distension. No bruits. No lymphadenopathy or thyromegaly. Chest: Right chest with tunneled HD catheter. Regular rate and rhythm with no murmurs, rubs, or gallops appreciated Pulmonary: Clear anteriorly to auscultation bilaterally with no crackles, wheezes, or rhonchi. Normal respiratory effort with no use of accessory muscles. Abdomen: Decreased bowel tones. Soft, nontender, distension. Multiple sites of ecchymosis from injections Extremities: Right thigh with two ulcers covered in clean, dry dressing. Wounds had a thick green and white discharge adherent to the dressing. Left thigh wound with wound vac dressing. Chronic venostasis changes lower extremities bilaterally. Skin: Normal temperature, turgor, and texture; no rash, ulcers, or subcutaneous nodules appreciated. Neurological: Cranial nerves grossly intact. Psychiatric: Antagonistic personality. Alert and oriented to person, place, and time. IVs and Medications Medications Reviewed: Medications were reviewed in detail Lab and Diagnostics Result Diagram: 09/26/1633409/26/16334 Assessment & Plan Patient is a 55-year-old female with ESRD, calciphylaxis, diabetes mellitus, hypertension, CAD and morbid obesity presenting as a referral from her PCP for bacteremia and thigh wound cultures positive for CRE and pseudomonas. 1. Bilateral thigh ulcers, chronic. Present on admission. Active -Culture of wound reportedly positive for CRE and pseudomonas at [place]. Awaiting records as requested by Dr. Boss -s/p debridement of right thigh wound (09/24/2016) at [place]. Wound vac dressing in place, wound vac not connected -Wound Care consult -Antibiotics per infectious disease -Discontinued cefepime discontinued -Monitor patient -Awaiting cultures from the wound performed here or wound cultures received from [place] -Consider transfer to [place] since her records and previous hospitalizations were there -Dilaudid 2-3 mg PO QID as needed for pain. -Lidocaine patch for pain as well -Pt's outside records report previous need for Narcan for respiratory depression from too much opioid pain medication 2. Acute bacteremia. Present on admission. Active -Reportedly positive for pseudomonas at [place], records request from [facility] -Blood cultures pending -Dr. Boss of Infectious Disease to follow. Recommendations per ID appreciated -Antibiotics as above 3. ESRD, chronic. Present on admission. Active -Followed by Dr. Jon outpatient -HD on Wed, Wed, Wed -Nephrology following. Recommendations per Nephrology appreciated -Dialysis today 4. Acute hyperkalemia. Present on admission. Active -Mildly elevated at 5.5 but decreased to 5.2 -Dialysis today -Follow with CMP 5. Calciphylaxis, chronic. Present on admission. Active -Need to verify dose of Renvela. All outpatient records mention 800mg TIDWM but patient states this is 3200mg TID -Appreciate nephrology input on dose 6. Type 2 diabetes mellitus, chronic. Present on admission -Bedside blood glucose checks -Continue home dose Lantus BID -Nutritional and correctional Lispro. Will likely need titration 7. Hypothyroidism, chronic. Present on admission -Continue home dose levothyroxine 8. Chronic respiratory failure. Present on admission -Uncertain etiology. Possibly secondary to obesity hypoventilation -Consider sleep study outpatient to assess for JEANETTE 9. Asthma, chronic. Present on admission -Albuterol PRN, DuoNeb QID 10. GERD, chronic. Present on admission -Continue home dose PPI 11. Dyslipidemia, chronic. Present on admission -Continue home dose statin 12. Depression, chronic. Present on admission -Continue home dose Effexor 13. Chronic constipation. Present on admission -Bowel regimen with Ying-Lax, Senna, Dulcolax, Fleets enema PRN 14. CAD with history of NSTEMI, chronic. Present on admission -Continue home dose metoprolol, statin, ASA 15. Hypertension, chronic. Present on admission -Continue home dose metoprolol, Lasix 16. Urinary incontinence, chronic. Present on admission -Continue home dose oxybutynin Patient Status: Patient is admitted under inpatient status with expected length of stay greater than 2 midnights due to risk of adverse event, and complexity of treatment plan. VTE Prophylaxis: Sub-Q Heparin (Unfractionated) Resuscitation Status: CPR: Attempt Resuscitation Time spent 30 min Attending Statement Patient seen and examined with house staff. Agree with all attached documentation. Ghislaine Paul DO Sep 26, 2016 16:29 Umberto Troy MD Sep 27, 2016 07:40
--- NOTE | 2016-09-26 18:45 | NUR ---
Dialysis note: 4 hrs tx. 3000 ml net UF. Right catheter, dsg changed, no s/s of infection noted. PTH and Phos drawn. Pls see DTR for VS details. Qb 400. Heparin given. O2 @ 2L via NC on. Na Thiosulfate 25 Gm IV given as ordered. Tolerated tx, slept at intervals. Catheter flushed, heparin dwelled and secured. Report given to Francy Casarez RN. Stable at time of transfer.
--- NOTE | 2016-09-26 19:16 | NUR ---
Dialysis/Pain Pt. returned back to room 2027 on P[facility] from 244 MOC. Pt. c/o of pain stating the PRNs ordered are ineffective. I administered dilaudid and robaxin PO at ~noon. Pt. VS stable, 3L pulled off during dialysis per report. Pt. is eating dinner at this time in her room.
[2016-09-26] MEDS ORDERED: Cefepime Inj 2,000 MG in Dextrose 5% Minibag Plus 100 ML IV SCH (21:00)
[2016-09-27] VITALS (9 sets, daily range): BP systolic 105–170; BP diastolic 44–88; PULSE 63–80; RESP 20–22; O2SAT 92–100
--- NOTE | 2016-09-27 04:04 | NUR ---
Refusal of Care activities: Unable to assess bilateral lower extremity and bilateral foot during first assessment, as pt. refused assessment of these areas. Additionally, unable to complete entire second physical assessment of pt., due to pt. refusing entire second physical assessment. Furthermore, pt. has refused turning in bed, and continues to lay in supine position despite skin care and protection education.
[2016-09-27 04:06] LABS: BASOPHILS % (AUTO) 0.2 % (0-3); EOSINOPHILS % (AUTO) 3.8 % (0-5); MONOCYTES % (AUTO) 7.3 % (4-12); Mean Corpuscular Hemoglobin 27.8 pg (27.0-35.0); Mean Corpuscular Volume 96.8 fL (81-100); Platelet Count 303 bil/L (150-400)
[2016-09-27] MEDS: MICONAZOLE 2% TOPICAL SCH ×3 (08:30→20:30)
[2016-09-27] MEDS: MeTOProlol XL 50 mg ER24 Tablet PO SCH (09:30)
[2016-09-27] MEDS: Ascorbic Acid 500 mg Tablet PO SCH (09:32)
[2016-09-27] MEDS: Tolterodine ER 4 mg ER24 Capsule PO SCH (09:34)
[2016-09-27] MEDS: Pantoprazole 40 mg ER24 Tablet PO SCH ×2 (09:34→21:04)
[2016-09-27] MEDS: Heparin 5,000 Unit/mL Inj SUBQ SCH ×2 (09:35→21:05)
[2016-09-27] MEDS: Polyethylene Glycol (PEG) 17 Gm Powder PO SCH (09:36)
[2016-09-27] MEDS: Insulin LISPRO 300 Unit/3 mL Inj SUBQ SCH ×4 (09:36→21:29)
[2016-09-27] MEDS: Insulin GLARgine 100 Unit/mL Syringe SUBQ SCH ×2 (09:38→21:29)
[2016-09-27] MEDS: Lidocaine Topical 5% Patch TOPICAL SCH (09:38)
--- NOTE | 2016-09-27 13:50 | NUR ---
Evaluation completed. Please go to "Notes" then click on "Assessments and Notes" (bottom left corner of screen). Then select appropriate discipline tab on top of screen.
--- NOTE | 2016-09-27 14:59 | PCM.PNMED ---
Subjective Date of Service Sep 27, 2016 Subjective Overnight: No acute events. Pt refusing wound care to bilateral legs. Today: Pt reports continuing chronic pain of bilateral thighs due to her wounds. She notes this has not changed before or during the hospitalization. She denies fevers, chills, shortness of breath, N/V/D. She does report chronic opioid-induced constipation. Exam Vital Signs Vital Sign - Last Date Time Temp Pulse Resp B/P Pulse Ox O2 Delivery O2 Flow Rate FiO2 09/27/16 12:15 37.0 63 20 170/88 100 Nasal Cannula 1.00 Intake and Output 09/26/16 09/26/16 09/27/16 Cumulative From/Thru 15:00 23:00 07:00 09/25/16 17:08 - 09/27/16 05:14 Intake Total 400 ml 200 ml 900 ml Output Total 3000 ml 0 ml 0 ml 3000 ml Balance -3000 ml 400 ml 200 ml -2100 ml Intake Oral 400 ml 200 ml 900 ml Output Urine Total 0 ml 0 ml 0 ml Ultrafiltrate 3000 ml 3000 ml # Voids 0 # Bowel Movements 0 1 1 Exam General: Obese, no acute distress, well-developed, appropriately interactive HEENT: Normocephalic, atraumatic. External ears without defect. Pupils equal, round, and reactive to light. Anicteric sclerae, moist conjunctivae, and no lid lag. Neck: Supple with full range of motion. No jugular venous distension. No bruits. No lymphadenopathy or thyromegaly. Chest: Right chest with tunneled HD catheter. Regular rate and rhythm with no murmurs, rubs, or gallops appreciated Pulmonary: Clear anteriorly to auscultation bilaterally with no crackles, wheezes, or rhonchi. Normal respiratory effort with no use of accessory muscles. Abdomen: Decreased bowel tones. Soft, nontender, distension. Multiple sites of ecchymosis from injections Extremities: Right thigh with two ulcers covered in clean, dry dressing. Wounds had a thick green and white discharge adherent to the dressing. Left thigh wound with wound vac dressing. Chronic venostasis changes lower extremities bilaterally. Skin: Normal temperature, turgor, and texture; no rash, ulcers, or subcutaneous nodules appreciated. Neurological: Cranial nerves grossly intact. Psychiatric: Antagonistic personality. Alert and oriented to person, place, and time. Lab and Diagnostics Result Diagram: 09/27/16 0350 09/27/16 0350 Assessment & Plan Patient is a 55-year-old female with ESRD, calciphylaxis, diabetes mellitus, hypertension, CAD and morbid obesity presenting as a referral from her PCP for bacteremia and thigh wound cultures positive for CRE and pseudomonas. 1. Bilateral thigh ulcers, chronic. Present on admission. Active -Culture of wound reportedly positive for CRE and pseudomonas at [place]. S/ p debridement of right thigh wound (09/24/2016) at [place]. Wound vac dressing in place, wound vac not connected. Per Dr. 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 Pt denies any change in symptoms from previously. Blood cultures from [place] were supposedly negative, but there is some uncertainty regarding this. - Awaiting records as requested by Dr. Boss. -Wound Care consult - requested deep cultures for more accurate cultures. -No antibiotics for now -Discontinued cefepime -Awaiting cultures from the wound performed here or wound cultures received from [place] -Consider transfer to [place] since her records and previous hospitalizations were there -Dilaudid 2-3 mg PO QID as needed for pain. -Lidocaine patch for pain as well -Pt's outside records report previous need for Narcan for respiratory depression from too much opioid pain medication 2. ESRD, chronic. Present on admission. Active -Followed by Dr. Jon outpatient -HD on Wed, Wed, Wed -Nephrology following. Recommendations per Nephrology appreciated -Dialysis today 3. Acute hyperkalemia. Present on admission. Active -Mildly elevated at 5.5 but decreased to 5.2 -Dialysis today -Follow with CMP 4. Calciphylaxis, chronic. Present on admission. Active -Need to verify dose of Renvela. All outpatient records mention 800mg TIDWM but patient states this is 3200mg TID -Appreciate nephrology input on dose 5. Type 2 diabetes mellitus, chronic. Present on admission -Bedside blood glucose checks -Continue home dose Lantus BID -Nutritional and correctional Lispro. Will likely need titration 6. Hypothyroidism, chronic. Present on admission -Continue home dose levothyroxine 7. Chronic respiratory failure. Present on admission -Uncertain etiology. Possibly secondary to obesity hypoventilation -Consider sleep study outpatient to assess for JEANETTE 8. Asthma, chronic. Present on admission -Albuterol PRN, DuoNeb QID 9. GERD, chronic. Present on admission -Continue home dose PPI 10. Dyslipidemia, chronic. Present on admission -Continue home dose statin 11. Depression, chronic. Present on admission -Continue home dose Effexor 12. Chronic constipation. Present on admission -Bowel regimen with Ying-Lax, Senna, Dulcolax, Fleets enema PRN 13. CAD with history of NSTEMI, chronic. Present on admission -Continue home dose metoprolol, statin, ASA 14. Hypertension, chronic. Present on admission -Continue home dose metoprolol, Lasix 15. Urinary incontinence, chronic. Present on admission -Continue home dose oxybutynin Patient Status: Patient is admitted under inpatient status with expected length of stay greater than 2 midnights due to risk of adverse event, and complexity of treatment plan. VTE Prophylaxis: Sub-Q Heparin (Unfractionated) Resuscitation Status: CPR: Attempt Resuscitation Time spent 35 min Attending Statement Patient seen and examined with housestaff. Agree with all attached documentation. Lalo Donato Sep 27, 2016 14:58 Umberto Troy MD Sep 28, 2016 10:14
--- NOTE | 2016-09-27 16:01 | NUR ---
OLU signed PAULA Overton
--- NOTE | 2016-09-27 16:20 | NUR ---
Social Work: Discharge planning D&A: Pt reports to this RELOCATION SERVICES SPECIALIST at 1600 that she is interested in changing SNF placements, contrary to d/c planning discussion on 09/26. Pt wishes to be closer to family. RELOCATION SERVICES SPECIALIST agreed that team would research other placement possibilities in [place] or further [facility], though a placement change would also necessitate a change in dialysis provider. RELOCATION SERVICES SPECIALIST to enlist the assistance of Billing Department Supervisor, in the AM on 09/28 to help execute search and will indicate as much on pass-down. P: RELOCATION SERVICES SPECIALIST team to identify any other SNF options for pt closer to her family in [place]. RELOCATION SERVICES SPECIALIST will follow for d/c planning and additional needs. PAULA Okeefe
--- NOTE | 2016-09-27 19:19 | NUR ---
Left wound dressing/Q2 turns Pt. left wound dressing at the bottom is peeling off. Blue duane, regular duane, and a cloth was put in place to reinforce dressing and to absorb discharge. Discharge noted had a brownish/creamy look to it. Pt. is able to adjust in bed independently and stated "I will call if I need help".
[2016-09-28] VITALS (8 sets, daily range): BP systolic 134–158; BP diastolic 75–83; PULSE 67–78; RESP 16–20; O2SAT 93–97
[2016-09-28 03:33] LABS: BASOPHILS % (AUTO) 0.2 % (0-3); EOSINOPHILS % (AUTO) 4.4 % (0-5); MONOCYTES % (AUTO) 8.2 % (4-12); Mean Corpuscular Hemoglobin 27.9 pg (27.0-35.0); Mean Corpuscular Volume 96.9 fL (81-100); NEUTROPHILS % (AUTO) 63.5 % (40-74); Platelet Count 309 bil/L (150-400)
--- NOTE | 2016-09-28 04:14 | NUR ---
Refusal of Care Activities: Pt. alert and oriented X3. Pt. refused nearly all care activities during shift. No physical assessments completed during shift, as pt. has refused physical assessments during shift, despite more than one offer by nurse to complete physical assessment. Additionally, pt. has refused turning in bed, and has been in supine position throughout shift. Pt. agitated towards staff intermittently. Pt. educated regarding purpose of care activities, however pt. continues to refuse.
[2016-09-28] MEDS: MICONAZOLE 2% TOPICAL SCH ×3 (08:30→21:34)
[2016-09-28] MEDS: Lidocaine Topical 5% Patch TOPICAL SCH (09:24)
[2016-09-28] MEDS: Heparin 5,000 Unit/mL Inj SUBQ SCH ×2 (09:25→21:08)
[2016-09-28] MEDS: Insulin LISPRO 300 Unit/3 mL Inj SUBQ SCH ×4 (09:25→22:20)
[2016-09-28] MEDS: Insulin GLARgine 100 Unit/mL Syringe SUBQ SCH ×2 (09:26→22:19)
[2016-09-28] MEDS: Tolterodine ER 4 mg ER24 Capsule PO SCH (09:27)
[2016-09-28] MEDS: Polyethylene Glycol (PEG) 17 Gm Powder PO SCH (09:29)
[2016-09-28] MEDS: Pantoprazole 40 mg ER24 Tablet PO SCH ×2 (09:29→21:08)
[2016-09-28] MEDS: Ascorbic Acid 500 mg Tablet PO SCH (09:29)
--- NOTE | 2016-09-28 10:57 | NUR ---
Spoke with Monik at [facility] and let her know potential for this patient to return today. She is also working on get state approval for this patient. Updated RESPIRATORY THERAPY TECHNICIAN
[2016-09-28] MEDS ORDERED: HYDROmorphone 1 mg/mL Inj IVPUSH PRN ×2 (11:15→12:30)
--- NOTE | 2016-09-28 12:24 | PCM.PNMED ---
Subjective Date of Service Sep 28, 2016 Subjective right thigh pain. K 5.8, refused extra HD today. wants to go home. Exam Vital Signs Vital Sign - Last Date Time Temp Pulse Resp B/P Pulse Ox O2 Delivery O2 Flow Rate FiO2 09/28/16 11:31 78 09/28/16 04:03 36.9 20 138/75 94 Nasal Cannula 1.00 Intake and Output 09/27/16 09/27/16 09/28/16 Cumulative From/Thru 15:00 23:00 07:00 09/25/16 17:08 - 09/28/16 06:13 Intake Total 640 ml 300 ml 1840 ml Output Total 0 ml 0 ml 3000 ml Balance 640 ml 300 ml -1160 ml Intake Oral 640 ml 300 ml 1840 ml Output Urine Total 0 ml 0 ml 0 ml Ultrafiltrate 3000 ml # Voids 0 # Bowel Movements 0 1 2 Exam General: Obese, NAD, AAOx3. HEENT: Normocephalic, atraumatic. Anicteric sclerae. Neck: No JVD No lymphadenopathy or thyromegaly. Heart: Regular rate and rhythm with no murmurs, rubs, or gallops. Lungs: decreased BS at bases. Chest: right IJ tunneled cath in placed. Abdomen: soft, obese, NT, ND, active BS. Extremities:no significant edema, refuse to have both thighs examined. Lab and Diagnostics Result Diagram: 09/28/1625409/28/16254 Assessment & Plan 1. End-stage renal disease-dialysis dependent. - today with hyperkalemia. - refused extra HD today. 2. Chronic ulcers on bilateral thighs. 3. Calciphylaxis. 4. Diabetic nephropathy. 5. Hypertension with hypertensive heart disease and hypertensive nephrosclerosis. 6. Obesity. 7. Anemia of CKD. Plan: Kayexalate 30 gm PO x1. Arrange for HD in am, 4 hr. increase renvela 4 tabs TID with meals. avoid calcium-containing phosphate binders. VTE Prophylaxis: Sub-Q Heparin (Unfractionated) Resuscitation Status: CPR: Attempt Resuscitation Mandi De La Rosa MD Sep 28, 2016 12:24
[2016-09-28] MEDS: MeTOProlol XL 50 mg ER24 Tablet PO SCH (12:33)
--- NOTE | 2016-09-28 14:26 | PROG NOTE ---
[address] [address] PROGRESS NOTE PATIENT: CALEB UGARTE : 1960 MR#: [id number] ADMIT: 09/25/2016 JOB ID: [id number] DATE: 09/28/2016 INFECTIOUS DISEASE FOLLOWUP: REASON FOR FOLLOWUP: CRE colonization, extensive, left thigh calciphylaxis wound. INTERVAL HISTORY: The patient reports over the last 48 hours, She has been without fevers, chills, or sweats. She states she feels about the same as she does in her usual state of very compensated health, living at the nursing home facility. Today, she denies fevers, chills, or sweats. She has no cough or shortness of breath at all. No nausea or vomiting, and she is able to eat her diet without difficulty. She has chronic pain, left greater than right thigh secondary to her calciphylaxis and associated wounds. PHYSICAL EXAMINATION: Reveals an afebrile woman, temperature 36.9. She has been really afebrile throughout her admission, though she was as high as 37.9 back on September 25, when she was first admitted. Pulse 72, respiratory rate 20, blood pressure 138/75. She is saturating 94% on 1 L. Examination of the mental status reveals that patient is clear and able to give a lucid history. Oral cavity negative. Lungs quite clear to auscultation. Cardiac tones: Regular rate and rhythm without new murmur. Abdomen: Obese, soft, and without focal tenderness. She has dressings over both of her lateral thigh wounds, which she did not want removed at this time, though I am planning to come by and see her when Wound Management takes down these dressing so I can better evaluate what is going on. On the left side, she actually has a wound VAC, but it is not hooked up at this time. Extremities have venous stasis changes which are quite significant but no acute cellulitis. LABORATORIES: Include a white count which is constantly 12,400 with essentially no variation. The diff on that white count is completely normal. Creatinine 4.66 in this dialysis patient. LFTs are normal. Procalcitonin 0.52, which is essentially normal for her end-stage renal failure. Blood cultures done here and a MRSA screen are negative. I once again spent considerable time on the telephone with [facility]. The blood cultures that were done in the [place] on September 24 are absolutely negative now at four days. The wound culture from the left thigh wound grew Citrobacter, which by Vitek and Evans-Fuller techniques is a CRE. It is only sensitive to quinolones and aminoglycosides out of the drugs that they tested at [facility]. Note that the patient is intolerant to Cipro as it gives her severe nausea and vomiting. IMPRESSION: This is a very challenging case of a woman with multiple severe problems, including end-stage renal disease with calciphylaxis involving both lateral thighs. 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 She reports she is in basically her usual state of compensated poor health and that she does not feel any different than she did a week or two ago. She does have chronic pain at the site of her calciphylaxis lesions, which is not surprising. I note in reviewing what records we have from [place] that this wound has previously grown Pseudomonas and now is growing a Citrobacter, and I suspect whenever sampled, will grow some organism. The patient has been in the hospital, she says 76 days in the past year, and otherwise resides at a nursing home facility, so she is certainly likely to be heavily colonized with more resistant organisms than the average patient. If we blaze this CRE with quinolones, I suspect we will make the patient sick and also produce a CRE which may be almost untreatable, so I would try to avoid that unless absolutely necessary. RECOMMENDATIONS: 1. I would continue to watch the patient off antibiotics. 2. I have asked the nurse to page me as soon as Wound Management arrives so I can take a better look at that left thigh wound. 3. It may be reasonable to get a culture of the left thigh wound here so we have the isolate available and can send it for additional testing as we see fit. 4. I have discussed this case this morning with Dr. Umberto Troy, who is the attending. Assuming nothing changes with the patient, I see no reason for her not to go back to the nursing home facility in the very near future.
--- NOTE | 2016-09-28 14:58 | NUR ---
NUTRITION ASSESSMENT Assess: 55 YO F admitted with chronic renal failure, acute bacteremia, and bilateral thigh ulcers. Pt with good PO intake. PMHX: Type 2 DM, hypothyroidism, GERD, asthma, dyslipidemia, depression, chronic constipation, ESRD on HD, chronic respiratory failure, CAD, NSTEMI, HTN. DIET: Renal, diabetic. PO intake 100%. LABS: K+ 5.8, BUN 39, Cr 4.66, Glu 194 MEDICATIONS: Reviewed. Colace, Lasix, Insulin, Florastor, Miralax. GI: 1 BM 09/28. SKIN: Bilateral thigh ulcers. Wound eval pending. WEIGHT: 146.6 kg, BMI 50.6 kg/m2, Adj. BW: 82.7 kg, IBW: 61.4 kg (238.9%) ESTIMATED NEEDS: BMI/WOUND/DIALYSIS Calories: 4642-8316 kcal/day (30-35 kcal/kg Adj. BW) Protein: 124-165 g/day (1.5-2.0 g/kg Adj. BW) NUTRITION DIAGNOSIS: 1) Increased nutrient needs related to wound healing/ESRD as evidenced by bilateral thigh ulcers, need for dialysis. INTERVENTION: 1) Will add Nepro supplement to encourage wound healing and adequate nutrition. 2) Will adjust estimated needs based on wound eval if necessary. MONITOR/EVALUATE: PO intake, labs, wound eval, diet tolerance, GI, nutrition status. Follow per moderate nutrition risk guidelines.
--- NOTE | 2016-09-28 15:38 | NUR ---
Wound Care Wound evaluation order received, patient seen at bedside. Patient is a 55-year-old female with ESRD, calciphylaxis, diabetes mellitus, hypertension, CAD and morbid obesity presenting as a referral from her PCP for bacteremia and thigh wound cultures positive for CRE and pseudomonas. Per medical records, patient is followed by wound care and debridement was recommended for the patient's thigh wounds; however, due to difficulty arranging debridement with a surgeon the patient was referred to [place] ED for debridement. The patient's wounds were reportedly covered with a thick white-green discharge that was believed to be colonization. The patient underwent debridement in the ED and discharged.Pt noted to have NPWT dressing in place but no machine attached. Dressing removed to reveal the following. left thigh ulcer 13 cm L x 5 cm W x 0.5 cm D, multiple areas of champagne slough around perimeter of wound bed and centrally, after application of 2% lidocaine for 40 minutes pt tolerated non excisional debridement with a #10 blade and forceps, minimal bleeding and no change in wound dimensions after debridement. Cleaned with saline and redressed with hydrogel, 4x4 gauze abd pad and tape. Right lateral thigh, proximal ulcer 2 cm L x 3 cm W x flush, covered with greenish champagne eschar,after application of 2% lidocaine for 40 minutes pt tolerated non excisional debridement with a #10 blade and forceps, minimal bleeding and no change in wound dimensions after debridement. Redressed with hydrogel gauze and tape. Right lateral thigh, distal ulcer 3 cm L x 2.5 cm W x flush,overed with greenish champagne eschar,after application of 2% lidocaine for 40 minutes pt tolerated non excisional debridement with a #10 blade and forceps, minimal bleeding and no change in wound dimensions after debridement.Redressed with hydrogel gauze and tape. Wounds are stable, do not feel patient requires NPWT anymore as the left lateral thigh ulcer has minimal depth at this time. Recommend daily dressing changes with hydrogel, gauze and tape. Wound Care to recheck on this patient tomorrow.
--- NOTE | 2016-09-28 16:42 | NUR ---
Social Work Note: Readiness for Discharge Data& Assessment: Per MD in morning rounds, pt is getting closer to being medically ready for discharge. SW met with pt at bedside to confirm discharge plan and assess for any unmet needs. Pt is agreeable to returning to [facility] for rehab when medically ready but explained to SW that she had concerns about the food at [facility] and felt like the staff were not listening to her food preferences and was not cooking it how she liked either. Per pt request, SW contacted admissions liaison regarding pt concerns. Admissions liaison explained they are familiar with her nutritional needs and wants. Pt stated that she will be going to dialysis tomorrow and hopes to discharge in the next 1-2 days with the goal of getting stronger in order to get back home to her cat Luzma. Pt denies any other needs at this time. Plan: Per MD in morning rounds, pt is getting closer to being medically ready for discharge. Pt confirmed discharge plan of returning to [facility] for continued rehab with the goal of getting stronger in order to get back home to her cat Luzma. Pt denies any other needs at this time. SW to continue to follow if any other needs arise. PAULA Kent
--- NOTE | 2016-09-28 18:19 | NUR ---
Potassium- Patient given dose of Kayexalate per order. She said that after drinking one mouthful, it made her "sleepy", and that she did not want to take the rest of the medication. I explained the importance of why she needed to take it, but she refused, stating that she was going to have dialysis tomorrow, and that she wasn't going to eat foods high in Potassium. Dr Lopez notified that patient refused med. Patient also refused Insulin coverage for blood sugar of 151.
--- NOTE | 2016-09-28 19:46 | PCM.PNMED ---
Subjective Date of Service Sep 28, 2016 Subjective Overnight: Patient requested manual disimpaction for constipation last night. She refused nearly all care activities during shift. Today: Pt reports pain of her bilateral thighs due to her wounds, which has not worsened compared to its baseline. She does not have fever or chills. Exam Vital Signs Vital Sign - Last Date Time Temp Pulse Resp B/P Pulse Ox O2 Delivery O2 Flow Rate FiO2 09/28/16 17:40 36.6 73 19 149/81 93 Room Air 09/28/16 04:03 1.00 Intake and Output 09/27/16 09/27/16 09/28/16 Cumulative From/Thru 15:00 23:00 07:00 09/25/16 17:08 - 09/28/16 06:13 Intake Total 640 ml 300 ml 1840 ml Output Total 0 ml 0 ml 3000 ml Balance 640 ml 300 ml -1160 ml Intake Oral 640 ml 300 ml 1840 ml Output Urine Total 0 ml 0 ml 0 ml Ultrafiltrate 3000 ml # Voids 0 # Bowel Movements 0 1 2 Exam General: Obese, no acute distress, well-developed, appropriately interactive HEENT: Normocephalic, atraumatic. External ears without defect. Pupils equal, round, and reactive to light. Anicteric sclerae, moist conjunctivae, and no lid lag. Neck: Supple with full range of motion. No jugular venous distension. No bruits. No lymphadenopathy or thyromegaly. Chest: Right chest with tunneled HD catheter. Regular rate and rhythm with no murmurs, rubs, or gallops appreciated Pulmonary: Clear anteriorly to auscultation bilaterally with no crackles, wheezes, or rhonchi. Normal respiratory effort with no use of accessory muscles. Abdomen: Decreased bowel tones. Soft, nontender, distension. Multiple sites of ecchymosis from injections Extremities: Right thigh with two ulcers covered in clean, dry dressing. Wounds had a thick green and white discharge adherent to the dressing. Left thigh wound with wound vac dressing. Chronic venostasis changes lower extremities bilaterally. Skin: Normal temperature, turgor, and texture. Neurological: Cranial nerves grossly intact. Psychiatric: Antagonistic personality. Alert and oriented to person, place, and time. 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 1. Bilateral thigh ulcers, chronic. Present on admission. Active -Culture of wound reportedly positive for CRE and pseudomonas at [facility]. S/ p debridement of right thigh wound (09/24/2016) at [facility]. Wound vac dressing in place, wound vac not connected. Per Dr. 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 Pt denies any change in symptoms from previously. Blood cultures from [facility] were supposedly negative, but there is some uncertainty regarding this. -Wound Care consulted and following. Their time and recommendations are appreciated. He saw patient today and do not feel patient requires NPWT anymore as the left lateral thigh ulcer has minimal depth at this time. Recommend daily dressing changes with hydrogel, gauze and tape. -No antibiotics for now -Discontinued cefepime -Awaiting cultures from the wound performed here -Dilaudid 2-3 mg PO QID as needed for pain. Dilaudid 1-2 mg IV q4H PRN pain during dressing changes. -Lidocaine patch for pain as well 2. ESRD, chronic. Present on admission. Active -Followed by Dr. Jon outpatient -HD on Wed, Wed -Nephrology following. Recommendations per Nephrology appreciated -Dialysis tomorrow morning 3. Acute hyperkalemia. Present on admission. Active -Mildly elevated initially at 5.5 but increased to 5.8 today -Patient refused dialysis today from nephrology -Kayexalate 30 gm PO x1 ordered but patient refused -Follow with CMP 4. Calciphylaxis, chronic. Present on admission. Active -Increased Renvela to 4 tabs TID with meals. -Avoid calcium-containing phosphate binders. 5. Type 2 diabetes mellitus, chronic. Present on admission -Bedside blood glucose checks -Continue home dose Lantus BID -Nutritional and correctional Lispro. Will likely need titration 6. Hypothyroidism, chronic. Present on admission -Continue home dose levothyroxine 7. Chronic respiratory failure. Present on admission -Uncertain etiology. Possibly secondary to obesity hypoventilation -Consider sleep study outpatient to assess for JEANETTE 8. Asthma, chronic. Present on admission -Albuterol PRN, DuoNeb QID 9. GERD, chronic. Present on admission -Continue home dose PPI 10. Dyslipidemia, chronic. Present on admission -Continue home dose statin 11. Depression, chronic. Present on admission -Continue home dose Effexor 12. Chronic constipation. Present on admission -Bowel regimen with Ying-Lax, Senna, Dulcolax, Fleets enema PRN 13. CAD with history of NSTEMI, chronic. Present on admission -Continue home dose metoprolol, statin, ASA 14. Hypertension, chronic. Present on admission -Continue home dose metoprolol, Lasix 15. Urinary incontinence, chronic. Present on admission -Continue home dose oxybutynin VTE Prophylaxis: Sub-Q Heparin (Unfractionated) Resuscitation Status: CPR: Attempt Resuscitation Time spent 30 minutes Attending Statement Patient seen and examined with house staff. Agree with all attached documentation. Ghislaine Paul DO Sep 28, 2016 18:16 Umberto Troy MD Oct 07, 2016 07:13
[2016-09-29 04:07] LABS: BASOPHILS % (AUTO) 0.2 % (0-3); EOSINOPHILS % (AUTO) 4.2 % (0-5); Mean Corpuscular Hemoglobin 28.2 pg (27.0-35.0); NEUTROPHILS % (AUTO) 63.8 % (40-74); Platelet Count 305 bil/L (150-400)
[2016-09-29 04:26] VITALS: BP 105/48; PULSE 74; RESP 20; O2SAT 94
--- NOTE | 2016-09-29 04:53 | NUR ---
KCl Potassium up to 6.5 this morning, from 6.4 last night. Patient given Kayexelate last night per orders. Took her over an hour to take it, as she stated it tasted nasty and "my stomach doesn't like it", but no BM yet. MD notified of this AM's critical labs, and plan is for dialysis this AM and to notify MD of any chest pain, arrhythmias, etc. Tele has been sinus rhythm in 70's. Pt states she often has high KCl levels.
[2016-09-29 07:54] VITALS: BP 143/61; PULSE 72; RESP 16; O2SAT 94
[2016-09-29] MEDS: Tolterodine ER 4 mg ER24 Capsule PO SCH (08:12)
[2016-09-29] MEDS: Ascorbic Acid 500 mg Tablet PO SCH (08:13)
[2016-09-29] MEDS: Heparin 5,000 Unit/mL Inj SUBQ SCH (08:17)
[2016-09-29] MEDS: Polyethylene Glycol (PEG) 17 Gm Powder PO SCH (08:17)
[2016-09-29] MEDS: Pantoprazole 40 mg ER24 Tablet PO SCH (08:17)
[2016-09-29] MEDS: Insulin GLARgine 100 Unit/mL Syringe SUBQ SCH (08:19)
[2016-09-29] MEDS: Insulin LISPRO 300 Unit/3 mL Inj SUBQ SCH ×2 (08:21→14:57)
[2016-09-29] MEDS: MICONAZOLE 2% TOPICAL SCH ×2 (08:23→14:30)
[2016-09-29] MEDS: Lidocaine Topical 5% Patch TOPICAL SCH (08:23)
--- NOTE | 2016-09-29 10:16 | NUR ---
Dialysis Pt to dialysis at 10:00. Metoprolol and lasix held, report called to BANDAR Herrera. Tele notified.
--- NOTE | 2016-09-29 10:28 | PROG NOTE ---
[address] [address] PROGRESS NOTE PATIENT: CALEB UGARTE : 1960 MR#: [id number] ADMIT: 09/25/2016 JOB ID: [id number] DATE: 09/29/2016 INFECTIOUS DISEASE FOLLOW UP NOTE: REASON FOR FOLLOW UP: Open wounds secondary to calciphylaxis colonization versus infection with multi-drug resistant organisms. INTERVAL HISTORY: Overnight, the patient states she has been free of fevers or chills. She has no cough or respiratory symptoms. She has no acute GI symptoms. She notes she has pain at the site of the calciphylaxis lesion on her left thigh area as well as the multiple other lesions on the right thigh. She also reports she also has considerable pain in the legs below the knees where she has lymphedema and chronic swelling. She notes that any manipulation or even approach to these areas is extraordinarily painful. PHYSICAL EXAMINATION: Reveals an afebrile woman. Temperature 36.7, pulse 72, respiratory rate 16, blood pressure 143/61. She is saturating 94% on room air. Mental status is unchanged and clear. Oral cavity negative. Lungs are clear. Cardiac tones regular rate and rhythm. The patient's abdomen is obese, soft and nontender. Yesterday, I was able to see the wounds during inspection with the wound knowledge management consultant. We carefully undressed both the left and right-sided thigh wounds. On the left side, there is a fairly extensive wound measuring about 12 x 4 cm x2 cm deep. There is some yellowish slough just around the edges of the wound but basically it is clean and erythematous without obvious necrosis. There is some induration and slightly increased pigment going inferior from this wound but that area is not broken down and does not appear grossly infected, though could be compatible with calciphylaxis. On the right side, there are three areas of eschar scattered along the right lateral upper thigh. These are obviously not stageable and we did not remove the eschars during our evaluation. These range in size from about 1-2 cm in diameter. There is no surrounding erythema on these either. The lower extremities still continue to show bilateral lymphedema below the knees with a mild erythematous cast and venous stasis changes. LABORATORIES: Include white count 12,800, with completely normal differential. Creatinine is 6.02. Potassium 6.5. LFTs are normal. Blood cultures are negative. MRSA screen negative. We took a culture yesterday from the left thigh wound. It is growing a gram-negative lactose animal chiropractor, which is yet to be identified as well as some scattered cutaneous type ophelia. IMPRESSION: I see no evidence for ongoing infection in this unfortunate patient with end-stage renal disease and calciphylaxis. Yesterday, I discussed her Citrobacter isolette with the people at [facility]. Recall that this was isolated during a wound debridement which took place on September [address] [facility] emergency department. That CRE was extremely resistant and only susceptible out of the antibiotics they tested at least to quinolones and aminoglycosides. I suspect that the organism will isolate, will also be the same Citrobacter but I think, at this point, it is colonizing rather than infecting and see no reason to jump in with antibiotics which would likely produce toxicity and even further resistance. RECOMMENDATIONS: 1. No antibiotics at this time. 2. The patient is cleared from an ID point of view to return to the [facility] facility. 3. This case discussed extensively with the primary team as well as with wound management.
[2016-09-29] MEDS ORDERED: Lactulose 20 Gm/30 mL 30 mL Syrup PO PRN (11:05)
[2016-09-29] MEDS ORDERED: SODIUM CHLORIDE 0.9% IV ONE (11:05)
[2016-09-29] MEDS ORDERED: SODIUM THIOSULFATE IV ONE (11:05)
--- NOTE | 2016-09-29 11:52 | PCM.PNMED ---
Subjective Date of Service Sep 29, 2016 Subjective worsening hyperkalemia today. Agreed for 4 hr HD today. evaluated by ID and wound care. IV abx not indicated at this moment. Exam Vital Signs Vital Sign - Last Date Time Temp Pulse Resp B/P Pulse Ox O2 Delivery O2 Flow Rate FiO2 09/29/16 07:54 36.7 72 16 143/61 94 Room Air 09/28/16 04:03 1.00 Intake and Output 09/28/16 09/28/16 09/29/16 Cumulative From/Thru 15:00 23:00 07:00 09/25/16 17:08 - 09/29/16 05:32 Intake Total 530 ml 672 ml 3042 ml Output Total 0 ml 3000 ml Balance 530 ml 672 ml 42 ml Intake Oral 530 ml 672 ml 3042 ml Output Urine Total 0 ml 0 ml Ultrafiltrate 3000 ml # Voids 0 # Bowel Movements 0 2 Exam General: Obese, NAD, AAOx3. HEENT: Normocephalic, atraumatic. Anicteric sclerae. Neck: No JVD No lymphadenopathy or thyromegaly. Heart: Regular rate and rhythm with no murmurs, rubs, or gallops. Lungs: decreased BS at bases. Chest: right IJ tunneled cath in placed. Abdomen: soft, obese, NT, ND, active BS. Extremities:no significant edema (+) chronic skin changes, refused to have both thighs examined. Lab and Diagnostics Result Diagram: 09/29/1634409/29/16344 Assessment & Plan 1. End-stage renal disease-dialysis dependent. with hyperkalemia. 2. Chronic ulcers on bilateral thighs. 3. Calciphylaxis. 4. Diabetic nephropathy. 5. Hypertension with hypertensive heart disease and hypertensive nephrosclerosis. 6. Obesity. 7. Anemia of CKD. Plan: HD today for 4 hr. will give sodium thiosulfate infusion during HD treating for calciphylaxis. continue renvela 4 tabs TID with meals. avoid calcium-containing phosphate binders. VTE Prophylaxis: Sub-Q Heparin (Unfractionated) Resuscitation Status: CPR: Attempt Resuscitation Mandi De La Rosa MD Sep 29, 2016 11:52
[2016-09-29 12:29] VITALS: PULSE 74
--- NOTE | 2016-09-29 13:07 | PROG NOTE ---
[address] [address] PROGRESS NOTE PATIENT: CALEB UGARTE : 1960 MR#: [id number] ADMIT: 09/25/2016 JOB ID: [id number] DATE: 09/28/2016 OBJECTIVE: I already saw the patient this morning and dictated, but I went back to see the patient with Edgardo from wound care. We carefully unwrapped and examined all of her wounds, which I had not had the opportunity to do previously. On the left side, she has about a 10 x 6 cm, fairly deep wound with surrounding discoloration and induration. This wound is moderately painful. There is some yellowish slough around the outer border of the wound, but otherwise, it looks fairly clean and uninfected. This certainly has the appearance of calciphylaxis. On the right lateral thigh/hip area, there are three lesions, all of which also appear to be calciphylaxis-type lesions. These have overlying eschar and range in size from 1-3 cm in diameter. These all have some degree of induration around them as well, though not nearly as significant as on the left side. ASSESSMENT/PLAN: It would appear that all of these lesions are related to calciphylaxis. All of them are certainly colonized with organisms and, of course, we have report from Ángel Kim from the that she has CRE in the wound on the left, which is not surprising, given her almost continual hospitalizations and long-term facility residence over the past year with many antibiotics. At this point, I agree with Edgardo of wound management, we need to consult Surgery to see if this patient needs a more comprehensive debridement of all four lesions, but I do not think empiric antibiotics are indicated as the patient does not appear overtly infected and we have almost no choices. Recall, as I put in my earlier note, that the CRE is only sensitive really to quinolones and aminoglycosides, and the patient does not tolerate quinolones, so I prefer to save our last antibiotic bullets until such time as we actually are forced to use them, rather than jump in now with heavily colonized wounds and produce even more resistant bacteria. I have also sent a culture of the left thigh wound today.
--- NOTE | 2016-09-29 13:53 | NUR ---
Arranged S transport for 1700 via [facility] and patient is going to be returning to [facility]. Updated END FINDER TWISTING DEPARTMENT
--- NOTE | 2016-09-29 14:24 | NUR ---
Dialysis note 3 hrs completed of 4 hr scheduled HD tx before system showing signs of clotting in a no Heparin tx. All blood returned. Pt then refusing to reinitiate tx stating she needed to have a BM and based on her routine it was not conducive to HD. See DTR for complete vitals. 1500ml yuri net UF removed. Catheter function poor. Starting at 400 QB and quickly exp. severe art spasms (up to 300),even with limbs reversed, and eventually QB down to 200. Pt anxious during tx and needy. Dr. Baumann notified of above. Catheter dwelled with 1000/1 U Heparin and secured. Report given and pt returned to floor stable.
[2016-09-29] MEDS ORDERED: HYDR2TAB28 PO (14:25)
[2016-09-29] MEDS ORDERED: HYDR2TAB27 PO (14:25)
[2016-09-29] MEDS ORDERED: METH5TAB3 PO (14:25)
--- NOTE | 2016-09-29 14:38 | NUR ---
took over patient care at 2pm
[2016-09-29 14:40] VITALS: BP 130/72; PULSE 74; RESP 16; O2SAT 95
[2016-09-29] MEDS: MeTOProlol XL 50 mg ER24 Tablet PO SCH (14:56)
--- NOTE | 2016-09-29 14:57 | PCM.DIMED ---
Ghislaine Paul DO 09/29/16 1457: Discharge Instructions Date of Service Sep 29, 2016 Dates of Hospitalization Sep 25, 2016 at 21:41 Discharge Diagnosis Discharge Diagnosis 1. Bilateral thigh ulcers, chronic. 2. ESRD, chronic 3. Acute hyperkalemia. 4. Calciphylaxis, chronic. 5. Type 2 diabetes mellitus, chronic. 6. Hypothyroidism, chronic. 7. Chronic respiratory failure. 8. Asthma, chronic. 9. GERD, chronic. 10. Dyslipidemia, chronic. 11. Depression, chronic. 12. Chronic constipation. 13. CAD with history of NSTEMI, chronic. 14. Hypertension, chronic. 15. Urinary incontinence, chronic. Diet Renal Diet Activity Limited until seen by PCP Call your provider Fever or Chills, Shortness of breath, Bleeding, Chest pain, Vomitting, Excessive diarrhea, Weakness (unilateral) Patient Instructions Continue all of your medications as previously prescribed. Continue dialysis as scheduled on Tuesdays, , and Saturdays. I discussed the lidocaine gel for dressing changes with the seal delivery vehicle officer here and she recommends discussing re-starting this medication with your primary seal delivery vehicle officer. You do not need surgical debridement of your wounds or antibiotics at this time. It is recommended that you continue to have daily dressing changes with hydrogel, gauze and tape. You are being transferred back to [facility]. Follow-up Provider: Geronimo Main DO Follow-up with PCP in: 1 week Provider: Armen Jon MD Follow-up in: 1 week Umberto Troy MD 10/07/16 0726: Discharge Instructions Attending's Statement Patient seen and examined with house staff. Agree with all attached documentation. Ghislaine Paul DO Sep 29, 2016 14:57 Umberto Troy MD Oct 07, 2016 07:26
--- NOTE | 2016-09-29 15:54 | PCM.DC.MED ---
Discharge Summary Date of Service Sep 29, 2016 Dates of Hospitalization Date of Hospital Admission Sep 25, 2016 at 21:41 Date of Discharge: Sep 29, 2016 Providers: Admitting Physician: Jenny Green DO Primary Care Physician: Geronimo Main DO Attending Physician: Jenny Green DO Diagnosis at Time of Discharge Diagnosis at Time of Discharge 1. Bilateral thigh ulcers, chronic. 2. ESRD, chronic 3. Acute hyperkalemia. 4. Calciphylaxis, chronic. 5. Type 2 diabetes mellitus, chronic. 6. Hypothyroidism, chronic. 7. Chronic respiratory failure. 8. Asthma, chronic. 9. GERD, chronic. 10. Dyslipidemia, chronic. 11. Depression, chronic. 12. Chronic constipation. 13. CAD with history of NSTEMI, chronic. 14. Hypertension, chronic. 15. Urinary incontinence, chronic. 16. Morbid obesity, POA. Brief History From the history and physical performed by Dr. Alonso Hartman on 09/26/2016: Patient is a 55-year-old female with ESRD, calciphylaxis, diabetes mellitus, hypertension, CAD and morbid obesity presenting as a referral from her PCP for bacteremia and thigh wound cultures positive for CRE and pseudomonas. Per medical records, patient is followed by wound care and debridement was recommended for the patient's thigh wounds; however, due to difficulty arranging debridement with a surgeon the patient was referred to [place] ED for debridement. The patient's wounds were reportedly covered with a thick white -green discharge that was believed to be colonization. The patient underwent debridement in the ED and discharged. Results of the wound and blood cultures showed pseudomonas and CRE, and the patient was subsequently referred to [facility] for treatment. In the ED, vitals: temp 37.4, HR 74, RR 15, BP 137/70. Notable labs: WBC 12.4, K 5.5, BUN 26, creatinine 5.03. Dr. Boss of Infectious Disease was contacted and recommends cefepime 2g Q24 hours, which was started in the ED. Hospital Course Patient is a 55-year-old female with ESRD, calciphylaxis, diabetes mellitus, hypertension, CAD and morbid obesity presenting as a referral from her PCP for bacteremia and thigh wound cultures positive for CRE and pseudomonas. 1. Bilateral thigh ulcers, chronic. Present on admission. Active -Culture of wound reportedly positive for CRE and pseudomonas at [place]. S/ p debridement of right thigh wound (09/24/2016) at [place]. Per Dr. 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 Pt denied any change in symptoms from previously. Blood cultures from [place] were supposedly negative, but there was some uncertainty regarding this. -Discontinued cefepime -Blood cultures done here show no growth to date -Wound Care consulted and followed. Their time and recommendations were appreciated. He saw patient yesterday and did not feel patient required NPWT anymore as the left lateral thigh ulcer has minimal depth at this time. He recommended daily dressing changes with hydrogel, gauze and tape. -Infectious disease was consulted and followed patient. Per Dr. Boss of infectious disease, "suspect that the organism will isolate, will also be the same Citrobacter but I think, at this point, it is colonizing rather than infecting and see no reason to jump in with antibiotics which would likely produce toxicity and even further resistance." 2. ESRD, chronic. Present on admission. Active -Followed by Dr. Jon outpatient -HD on Wed -Nephrology followed. Recommendations per nephrology were appreciated -Patient received dialysis Wednesday and today. 1500 ml net UF removed today and poor catheter function was reported. 3. Acute hyperkalemia. Present on admission. Active -Mildly elevated initially at 5.5 but increased to 6.5 today -Patient refused additional dialysis yesterday -Kayexalate 30 gm PO x1 ordered yesterday but patient could not tolerate full dose -She received hemodialysis this morning for 4 hours 4. Calciphylaxis, chronic. Present on admission. Active -Increased Renvela to 4 tabs TID with meals. -Avoided calcium-containing phosphate binders. 5. Type 2 diabetes mellitus, chronic. Present on admission -Bedside blood glucose checks were done -Continued home dose Lantus BID -Nutritional and correctional Lispro were given here. 6. Hypothyroidism, chronic. Present on admission -Continued home dose levothyroxine 7. Chronic respiratory failure. Present on admission -Uncertain etiology. Possibly secondary to obesity hypoventilation -Consider sleep study outpatient to assess for JEANETTE 8. Asthma, chronic. Present on admission -Albuterol PRN, DuoNeb QID 9. GERD, chronic. Present on admission -Continued home dose PPI 10. Dyslipidemia, chronic. Present on admission -Continued home dose statin 11. Depression, chronic. Present on admission -Continued home dose Effexor 12. Chronic constipation. Present on admission -Bowel regimen with Ying-Lax, Senna, Dulcolax, Fleets enema PRN 13. CAD with history of NSTEMI, chronic. Present on admission -Continued home dose metoprolol, statin, ASA 14. Hypertension, chronic. Present on admission -Continued home dose metoprolol, Lasix 15. Urinary incontinence, chronic. Present on admission -Continued home dose oxybutynin Exam Vital Signs (Last) Date Time Temp Pulse Resp B/P Pulse Ox O2 Delivery O2 Flow Rate FiO2 09/29/16 14:40 36.4 74 16 130/72 95 Room Air 09/28/16 04:03 1.00 Exam General: Obese, no acute distress, well-developed, appropriately interactive HEENT: Normocephalic, atraumatic. External ears without defect. Pupils equal, round, and reactive to light. Anicteric sclerae, moist conjunctivae, and no lid lag. Neck: Supple with full range of motion. No jugular venous distension. No bruits. No lymphadenopathy or thyromegaly. Chest: Right chest with tunneled HD catheter. Regular rate and rhythm with no murmurs, rubs, or gallops appreciated Pulmonary: Clear anteriorly to auscultation bilaterally with no crackles, wheezes, or rhonchi. Normal respiratory effort with no use of accessory muscles. Abdomen: Decreased bowel tones. Soft, nontender, distension. Multiple sites of ecchymosis from injections Extremities: Right thigh wound and left thigh wound covered in clean, dry dressings intact without any visible drainage or discharge or surrounding erythema. Chronic venostasis changes lower extremities bilaterally. Skin: Normal temperature, turgor, and texture. Neurological: Cranial nerves grossly intact. Psychiatric: Alert and oriented to person, place, and time. Test 09/25/16 19:00 09/26/16 03:35 09/26/16 12:35 09/26/16 21:25 Hemoglobin A1c 6.3% (4.8-5.6) Lactic Acid Level 1.1mmol/L (0.4-2.0) Magnesium Level 2.3mg/dL (1.6-2.6) Procalcitonin 0.52ng/mL (0.00-0.08) Hold Guerra Top Tube Received (Received) Hematology Comments Phosphorus Level 5.4mg/dL (2.5-4.9) Calcium (Send out) 9.2mg/dL (8.7-10.2) Parathyroid Hormone Interpretation Comment (.) Total Intact Parathyroid Hormone 92pg/mL (15-65) Test 09/29/16 03:45 White Blood Count 12.8th/mm3 (3.8-10.1) Red Blood Count 3.51mil/mm3 (3.90-5.20) Hemoglobin 9.9g/dL (12.0-15.6) Hematocrit 33.7% (35.0-46.0) Mean Corpuscular Volume 96.0fL (81-100) Mean Corpuscular Hemoglobin 28.2pg (27.0-35.0) Mean Corpuscular Hemoglobin Concent 29.4% (32.0-37.0) Red Cell Distribution Width 15.4% (12.3-15.4) Platelet Count 305bil/L (150-400) Neutrophils (%) (Auto) 63.8% (40-74) Lymphocytes (%) (Auto) 23.6% (14-46) Monocytes (%) (Auto) 8.0% (4-12) Eosinophils (%) (Auto) 4.2% (0-5) Basophils (%) (Auto) 0.2% (0-3) Sodium Level 140mEq/L (134-144) Potassium Level 6.5mEq/L (3.5-5.2) Chloride Level 98mEq/L (97-108) Carbon Dioxide Level 23mmol/L (18-29) Blood Urea Nitrogen 57mg/dL (6-24) Creatinine 6.02mg/dL (0.57-1.00) Estimat Glomerular Filtration Rate 10mL/min (>59) Glucose Level 161mg/dL (60-99) Calcium Level 9.0mg/dL (8.5-10.1) Total Bilirubin 0.2mg/dL (0.0-1.2) Aspartate Amino Transf (AST/SGOT) 6U/L (0-50) Alanine Aminotransferase (ALT/SGPT) 6U/L (0-32) Alkaline Phosphatase 90U/L (25-150) Total Protein 6.5g/dL (6.4-8.4) Albumin 3.6g/dL (3.4-5.0) Prealbumin 31mg/dL (20-40) Microbiology Results Comment: LT.THIGH ULCER--NOTE PREV CRE Procedure Result Verified Site Microbiology ELAINE GS (GRAM STAIN) Final 09/28/16-1332 GRAM STAIN RESULT FEW POLYS FEW GRAM POS COCCI ELAINE CULT AEROBIC Preliminary 09/29/16-1027 PRELIMINARY ID GRAM NEGATIVE SAM ID AND SENS TO FOLLOW COLONY COUNT/QUANTITY LIGHT GROWTH LIGHT NORMAL INESSA PRESENT Discharge Medications Discharge Medications Ascorbic Acid (Vitamin C) 500 Mg Capsule.er 500 MG PO DAILY (Reported) Aspirin (Aspirin) 81 Mg Tablet 81 MG PO DAILY (Reported) Atorvastatin Calcium (Atorvastatin Calcium) 80 Mg Tablet 80 MG PO HS (Reported) Docusate Sodium (Docusate Sodium) 250 Mg Capsule 250 MG PO BID (Reported) Furosemide (Furosemide) 80 Mg Tab 80 MG PO DAILY (Reported) Heparin Sodium,Porcine (Heparin Sodium) 5,000 Unit/1 Ml Vial 5,000 UNIT SUBQ BID (Reported) Insulin Glargine (Lantus U100 Insulin Vial) 100 Unit/Ml Vial 17 UNIT SUBQ BID ( Reported) Insulin Lispro (HumaLOG U100 Insulin Pen) 100 Unit/1 Ml Insuln.pen 10 UNIT SUBQ TIDAC (Reported) Ipratropium/Albuterol Sulfate (Iprat-Albut 0.5-3(2.5) mg/3 mL Inhalant Soln) 3 Ml Ampul.neb 3 ML IH Q4 (Reported) Levothyroxine (Levothyroxine) 100 Mcg Tablet 100 MCG PO DAILY (Reported) Lidocaine (Lidoderm) 700 Mg Adh..patch 1 PATCH TP DAILY (Reported) ON for 12hrs/ OFF for 12hrs Metoprolol Succinate ER (Metoprolol Succinate ER) 50 Mg Tab.er.24h 50 MG PO DAILY (Reported) Miconazole Nitrate (Miconazole Nitrate) 7 Appl/45 Gm Cream.appl 1 APPL TOPICAL TID (Reported) For yeast in groin Naloxegol Oxalate (Movantik) 12.5 Mg Tablet 12.5 MG PO DAILY (Reported) Oxybutynin Chloride ER (Ditropan XL) 5 Mg Tab.er.24 10 MG PO DAILY (Reported) Pantoprazole DR (Pantoprazole DR) 40 Mg Tablet.dr 40 MG PO BID (Reported) Polyethylene Glycol 3350 (Miralax) 17 Gm Powd.pack 17 GM PO QPM (Reported) Pregabalin (Lyrica) 75 Mg Capsule 75 MG PO TID (Reported) Saccharomyces Boulardii (Florastor) 250 Mg Capsule 250 MG PO BID (Reported) Sennosides (Senna) 8.6 Mg Tablet 17.2 MG PO BID (Reported) Sevelamer Carbonate (Renvela) 800 Mg Tablet 3,200 MG PO TIDWM (Reported) Venlafaxine (Venlafaxine) 100 Mg Tablet 100 MG PO BIDWM (Reported) As needed Acetaminophen (Acetaminophen) 325 Mg Tablet 1-2 EACH PO Q4H PRN PRN For Pain ( Reported) Albuterol Sulfate (Ventolin HFA Inhaler) 200 Puff/18 Gm Inhaler 1-2 PUFF INH Q4 PRN PRN For Shortness of Breath (Reported) Bisacodyl (Dulcolax Rectal) 10 Mg Supp.rect 10 MG RC DAILY PRN PRN For Constipation (Reported) If no BMx12 shifts Hydromorphone (Dilaudid) 2 Mg Tablet 1-2 MG PO DAILY PRN PRN dressing changes Prescribed by: KIRIT JUAREZ DO Hydromorphone (Hydromorphone) 2 Mg Tablet 2 MG PO QID PRN PRN Pain Prescribed by: KIRIT JUAREZ DO Magnesium Hydroxide (Milk of Magnesia) 400 Mg/5 Ml Oral.susp 30 ML PO DAILY PRN PRN For Constipation (Reported) If no BMx9 shifts Melatonin/Pyridoxine (Melatonin 3 mg Tablet) 1 Each Tablet 2 EACH PO HS PRN PRN Insomnia (Reported) May repeat x1 Methocarbamol (Methocarbamol) 500 Mg Tablet 1,000 MG PO QID PRN PRN For Pain ( Reported) Na Phos,M-B/Na Phos,Di-Ba (Fleet Enema) 133 Ml Enema 133 ML RC DAILY PRN PRN For Constipation (Reported) If no BMx15 shifts Ondansetron (Ondansetron) 4 Mg Tablet 4 MG PO TID PRN PRN For Nausea (Reported) Followup Plan Discharge Diet: Renal Diet Discharge Activity: Limited until seen by PCP Patient Instructions Continue all of your medications as previously prescribed. Continue dialysis as scheduled on Tuesdays, , and Saturdays. I discussed the lidocaine gel for dressing changes with the promotions producer here and she recommends discussing re-starting this medication with your primary promotions producer. You do not need surgical debridement of your wounds or antibiotics at this time. It is recommended that you continue to have daily dressing changes with hydrogel, gauze and tape. You are being transferred back to [place]. Follow-up Provider: Geronimo Main DO Follow-up with PCP in: 1 week Provider: Armen Jon MD Follow-up in: 1 week Time spent 60 minutes Attending Statement Patient seen and examined with house staff. Agree with all attached documentation. copies to: Geronimo Main DO; Armen Jon MD, Marissa L DO Sep 29, 2016 15:35 Umberto Troy MD Oct 07, 2016 07:27
--- NOTE | 2016-09-29 16:36 | NUR ---
Social Work Note: Discharge Data& Assessment: Per pt is medically ready for discharge. Sarah Jang is a 55 year old female admitted on 09/25/2016 for chronic renal failure. Per pt is medically improved and ready to discharge back to [facility] for rehab. Pt meets criteria for ambulance transportation at this time, if for some reason Medicare does not agree, pt would be liable for the bill. Pt denies any questions, concerns or other needs. [facility] updated and aware of plan. RN updated and aware of plan. No other discharge needs identified. Plan: Per pt is medically improved and ready to discharge back to [facility] via ambulance at 5:00p.m. today. Pt denies any other needs. No other discharge needs identified. All updated and agreeable to plan. PAULA Kent
--- NOTE | 2016-09-29 17:06 | NUR ---
Discharge Pt discharged to [facility] today at 17:00. Pt off floor via stretcher with all of her belongings in the company of ambulance staff. Pt packet sent with ambulance staff including prescriptions and discharge notes. Report to be called to Luis at [facility].
== END 2016-09-29 17:56 | DRG 592 ==
LOC: EDBD 17:04 → SED 17:31 → PCC 21:41 → OBSVTOIN 21:41 → PCC 22:17
PROVIDERS: ADMIT Internal Medicine; ATTEND Internal Medicine
PROC: 0HDJXZZ Extraction of Left Upper Leg Skin, External Approach (ICD-10-PCS; principal; 2016-09-28)
PROC: 0HDKXZZ Extraction of Right Lower Leg Skin, External Approach (ICD-10-PCS; 2016-09-28)
PROC: 5A1D60Z (ICD-10-PCS; 2016-09-28)
DX: L97.129 Non-pressure chronic ulcer of left thigh with unspecified severity (principal); N18.6 End stage renal disease; J96.10 Chronic respiratory failure, unspecified whether with hypoxia or hypercapnia; I12.0 Hypertensive chronic kidney disease with stage 5 chronic kidney disease or end stage renal disease; Z68.43 Body mass index [BMI] 50.0-59.9, adult; I42.9 Cardiomyopathy, unspecified; E66.2 Morbid (severe) obesity with alveolar hypoventilation; E83.59 Other disorders of calcium metabolism; L97.119 Non-pressure chronic ulcer of right thigh with unspecified severity; E87.5 Hyperkalemia; E11.22 Type 2 diabetes mellitus with diabetic chronic kidney disease; J45.909 Unspecified asthma, uncomplicated; E78.5 Hyperlipidemia, unspecified; K59.09 Other constipation; I25.10 Atherosclerotic heart disease of native coronary artery without angina pectoris; R32 Unspecified urinary incontinence; E03.9 Hypothyroidism, unspecified; E11.319 Type 2 diabetes mellitus with unspecified diabetic retinopathy without macular edema; E11.42 Type 2 diabetes mellitus with diabetic polyneuropathy; G89.29 Other chronic pain; K59.03 Drug induced constipation; D63.1 Anemia in chronic kidney disease; B96.5 Pseudomonas (aeruginosa) (mallei) (pseudomallei) as the cause of diseases classified elsewhere; Z16.23 Resistance to quinolones and fluoroquinolones; Z79.82 Long term (current) use of aspirin; Z79.4 Long term (current) use of insulin; I25.2 Old myocardial infarction; Z99.2 Dependence on renal dialysis

== ENCOUNTER 2016-12-14 11:08 | Inpatient (IN) | payer MEDICARE, MEDICAID ==
[2016-12-14] VITALS (13 sets, daily range): BP systolic 143–182; BP diastolic 54–127; PULSE 83–105; RESP 14–23; O2SAT 93–100
[~2016-12-14] VITALS: Ht 170.2 cm; Wt 139.5 kg
[~2016-12-14 11:08] MED LIST: ACET325T51 PO; ALBU18HF INH; ASCO500C6 PO; ASPI-973 PO; ATOR80TA77 PO; BISA10SU61 RC; DOCU250C2 PO; FRSM80T PO; HEPA500017 SUBQ; HYDR2TAB27 PO; HYDR2TAB28 PO; INSU100I18 SUBQ; INSU100V7 SUBQ; IPRA3AMP IH; LEVO100T6 PO; LIDO700A6 TP; MAGN400O4 PO; MELA1TAB11 PO; METO-272 PO; MICO45CR10 TOPICAL; NA P133E23 RC; NALO12.5 PO; ONDA-53 PO; OXYB5TAB35 PO; PANT40TA3 PO; POLY17PO6 PO; PREG75CA PO; ROB500 PO; SACC250C PO; SENN-133 PO; SEVE800T7 PO; VENL100T3 PO
--- NOTE | 2016-12-14 11:17 | ED.REPORT ---
HPI-Altered Mental Status Date of Service December 14, 2016 ED Provider: Russell Mitchell DO 55 year old female with a history of chronic respiratory failure, ESRD on dialysis, type II diabetes, and sepsis presents to the ER via EMS due to decreased LOC onset last night. She currently complains of difficulty breathing and congestion worsening overnight. Patient denies any new numbness/weakness, fever, vomiting, diarrhea, and abdominal pain. On 4L O2 at night. Last dialysis appointment was two days ago. Nursing Notes Stated Complaint: DECREASED LOC Nursing Notes Reviewed: Yes Allergies: Coded Allergies: bupropion (Verified Allergy, Severe, night terrors, 09/25/16) ciprofloxacin (Verified Allergy, Severe, Nausea,Vomiting, 09/25/16) n/v for days afterwards Uncoded Allergies: DODEINE (Allergy, Intermediate, Nausea,Vomiting, 09/25/16) tyleol #3 Scheduled Ascorbate Calcium (Vitamin C) 500 Mg Tablet 500 MG PO DAILY Aspirin (Aspirin) 81 Mg Tablet 81 MG PO DAILY Atorvastatin Calcium (Atorvastatin Calcium) 80 Mg Tablet 80 MG PO HS Calcium Polycarbophil (Calcium Polycarbophil) 625 Mg Tablet 625 MG PO Evening Cholecalciferol (Vitamin D3) (Vitamin D3) 50,000 Unit Capsule 50,000 UNIT PO Every Wednesday Docusate Sodium (Docusate Sodium) 250 Mg Capsule 250 MG PO BID Furosemide (Furosemide) 80 Mg Tab 80 MG PO DAILY Heparin Sodium,Porcine (Heparin Sodium) 5,000 Unit/1 Ml Vial 5,000 UNIT SUBQ BID Insulin Glargine (Lantus U100 Insulin Vial) 100 Unit/Ml Vial 20 UNIT SUBQ BID Insulin Lispro (HumaLOG U100 Insulin Pen) 100 Unit/1 Ml Insuln.pen 10 UNIT SUBQ TIDAC Insulin Lispro (HumaLOG U100 Insulin Pen) 100 Unit/1 Ml Insuln.pen 1 UNIT SUBQ TIDWM Blood Sugar Lispro Correction <151 0 units 151-175 1 unit 176-200 2 units 201-225 3 units 226-250 4 units 251-275 5 units 276-300 6 units 301-325 7 units 326-350 8 units 351-375 9 units 376-400 10 units >400 12 units Check blood sugars before meals and at bedtime. Use correction factor only before meals. Ipratropium/Albuterol Sulfate (Iprat-Albut 0.5-3(2.5) mg/3 mL Inhalant Soln) 3 Ml Ampul.neb 3 ML IH Q4 Levothyroxine (Levothyroxine) 100 Mcg Tablet 100 MCG PO DAILY Lidocaine (Lidoderm) 700 Mg Adh..patch 1 PATCH TP DAILY ON for 12hrs/ OFF for 12hrs Lubiprostone (Amitiza) 24 Mcg Capsule 24 MCG PO BID Metoprolol Succinate ER (Metoprolol Succinate ER) 50 Mg Tab.er.24h 25 MG PO DAILY Hold for SBP <80 or HR <60 Oxybutynin Chloride ER (Ditropan XL) 5 Mg Tab.er.24 10 MG PO DAILY Polyethylene Glycol 3350 (Miralax) 17 Gm Powd.pack 17 GM PO HS Pregabalin (Lyrica) 75 Mg Capsule 75 MG PO TID Saccharomyces Boulardii (Florastor) 250 Mg Capsule 250 MG PO BID Sennosides (Senna) 8.6 Mg Tablet 17.2 MG PO BID Sevelamer Carbonate (Renvela) 800 Mg Tablet 3,200 MG PO TIDWM Venlafaxine (Venlafaxine) 100 Mg Tablet 100 MG PO BIDWM Scheduled PRN Acetaminophen (Acetaminophen) 325 Mg Tablet 1-2 EACH PO Q4H PRN PRN For Pain Albuterol Sulfate (Ventolin HFA Inhaler) 200 Puff/18 Gm Inhaler 1-2 PUFF INH Q4 PRN PRN For Shortness of Breath Bisacodyl (Dulcolax Rectal) 10 Mg Supp.rect 10 MG RC DAILY PRN PRN For Constipation If no BMx12 shifts Hydromorphone (Hydromorphone) 2 Mg Tablet 2-6 MG PO Q4H PRN PRN Pain Melatonin (Melatonin) 3 Mg Tablet.er 3 MG PO PRN Insomnia Methocarbamol (Methocarbamol) 500 Mg Tablet 1,000 MG PO Q6H PRN PRN For Pain Na Phos,M-B/Na Phos,Di-Ba (Fleet Enema) 133 Ml Enema 133 ML RC PRN For Constipation If No BM in 15 shifts or 5 days Ondansetron (Ondansetron) 4 Mg Tablet 4 MG PO TID PRN PRN For Nausea Miscellaneous Medications ([Ergocalciferol 76343]) General Time Seen by MD: 11:11 Chief Complaint Confused Hx Obtained From: Patient, EMS Arrived By: Ambulance Sudden in Onset?: No Onset Occurred: Yesterday Symptom Duration: Since onset Past Medical History Past Medical History Urinary tract infection, site unspecified Type 2 diabetes mellitus with long-term current use of insulin Infected prosthetic mesh of abdominal wall, sequela ESRD (end stage renal disease) on dialysis Mixed hyperlipidemia Weakness Medial epicondylitis, right elbow Vaginal bleeding Hoarseness Past Surgical History Sinus surgery Ovarian cyst removal Endometrial ablation Smoking History Unknown if Ever Smoker Social History Alcohol Use: Denies alcohol use Review of Systems Constitutional: Denies: Chills, Fever Respiratory: Reports: Shortness of breath Cardiovascular: Denies: Chest pain GI: Denies: Abdominal pain, Diarrhea, Nausea, Vomiting Neurologic: Denies: Focal weakness, Numbness, Weakness Psychiatric: Reports: Confusion Complete sys rev & neg: except as marked. Physical Exam Initial Vital Signs Vital Signs (First) Date Time Temp Pulse Resp B/P Pulse Ox O2 Delivery O2 Flow Rate FiO2 12/14/16 11:23 36.6 84 18 168/78 97 Nasal Cannula 4 12/14/16 12:12 28 Initial VS: Reviewed Abdomen / GI: Soft, Non-tender, No guarding, No rebound, No distention Extremities: Vascular intact, Neuro intact, No tenderness Skin: Warm, Dry, No cyanosis General/Constitutional: Awake, Alert, Well developed Appearance / Presentation: Positive: Obese, morbidly Head / Eyes: Atraumatic, Normocephalic, PERRL, EOMI Neck: Atraumatic, Supple, No meningismus, Full range of motion, No swelling, Non-tender, No midline vertebral tend, No masses, No carotid bruit, Thyroid NL Respiratory / Chest: No wheezing, No stridor Diffuse coarse breath sounds. Cardiovascular: Heart rate NL, Regular rhythm, Heart sounds NL, Peripheral circulation NL Lower Ext Edema: Positive: Bilateral 3+ Neurologic: Speech NL, No motor deficits, No sensory deficits Mental Status: Positive: Confused, Disoriented to time Interpretation & Diagnostics Lab Results Interpretation Result Diagram: 12/14/16 1115 12/14/16 1115 Test 12/14/16 11:15 12/14/16 12:36 White Blood Count 12.2th/mm3 (3.8-10.1) Red Blood Count 3.93mil/mm3 (3.90-5.20) Hemoglobin 11.7g/dL (12.0-15.6) Hematocrit 38.7% (35.0-46.0) Mean Corpuscular Volume 98.5fL (81-100) Mean Corpuscular Hemoglobin 29.8pg (27.0-35.0) Mean Corpuscular Hemoglobin Concent 30.2% (32.0-37.0) Red Cell Distribution Width 16.5% (12.3-15.4) Platelet Count 263bil/L (150-400) Neutrophils (%) (Auto) 77.3% (40-74) Lymphocytes (%) (Auto) 14.4% (14-46) Monocytes (%) (Auto) 6.1% (4-12) Eosinophils (%) (Auto) 1.6% (0-5) Basophils (%) (Auto) 0.2% (0-3) Prothrombin Time 9.7sec (8.1-12.5) Prothromb Time International Ratio 0.91ratio Sodium Level 141mEq/L (134-144) Potassium Level 5.9mEq/L (3.5-5.2) Chloride Level 98mEq/L (97-108) Carbon Dioxide Level 25mmol/L (18-29) Blood Urea Nitrogen 44mg/dL (6-24) Creatinine 5.81mg/dL (0.57-1.00) Estimat Glomerular Filtration Rate 11mL/min (>59) Glucose Level 182mg/dL (60-99) Lactic Acid Level 0.8mmol/L (0.4-2.0) Calcium Level 9.5mg/dL (8.5-10.1) Magnesium Level 2.6mg/dL (1.6-2.6) Total Bilirubin 0.2mg/dL (0.0-1.2) Aspartate Amino Transf (AST/SGOT) 7U/L (0-50) Alanine Aminotransferase (ALT/SGPT) 7U/L (0-32) Alkaline Phosphatase 107U/L (25-150) Troponin T 1.02ug/L (0.0-0.011) Pro-B-Type Natriuretic Peptide > 81609rs/mL (0-287) Total Protein 7.8g/dL (6.4-8.4) Albumin 3.8g/dL (3.4-5.0) Procalcitonin 0.63ng/mL (0.00-0.08) Urine Color Straw (YELLOW) Urine Appearance Turbid (CLEAR,HAZY) Urine pH 7.0 (5.0-8.0) Urine Specific [place] 1.020 (1.003-1.035) Urine Protein 300mg/dL (NEG,TRACE) Urine Glucose (UA) 100mg/dL (NEGATIVE) Urine Ketones Negativemg/dL (NEGATIVE) Urine Occult Blood Large (NEGATIVE) Urine Nitrite Negative (NEGATIVE) Urine Bilirubin Negative (NEGATIVE) Urine Urobilinogen Normalmg/dL (NORMAL) Urine Leukocyte Esterase Large (NEGATIVE) Urine RBC 11-50/hpf (0-2) Urine WBC Packed/hpf (0-5) Urine Epithelial Cells Occasional/hpf (NONE-MOD) Urine Crystals None seen (NONE SEEN) Urine Bacteria Moderate/hpf (NONE-FEW) Urine Hyaline Casts None/lpf (NONE) Urine Granular Casts None seen (NONE SEEN) Urine Waxy Casts None seen (NONE SEEN) Urine Red Blood Cell Casts None seen (NONE SEEN) Urine White Blood Cell Casts None seen (NONE SEEN) Urine Mucus Present (None Seen) Urine Trichomonas None seen (NONE SEEN) Urine Yeast Few (NONE SEEN) Urinalysis Comment Transitional epi Urine Culture Reflexed Indicated Lab Results Interpretation: Venous Blood Gas: pH: 7.12 pCO2: 90 pO2: 36.6 cHCO3: 28 cBase: -3.2 ECG Interpretation ECG Interpretation: Sinus rhythm, rate 81 Probable LVH No acute ischemia Time: 11:29 Interpreted by: ED physician X-Ray Chest Interpretation Chest Xray Interpretation: IMPRESSION: 1. Mild cardiomegaly with associated vascular congestion is suspicious for developing pulmonary edema. 2. Right-sided central line catheter is positioned with the tip overlying the mid superior vena cava. 3. No pneumothorax. Dictated by: Ghanshyam Monroy M.D. on 12/14/2016 at 10:32 Approved by: Ghanshyam Monroy M.D. on 12/14/2016 at 10:33 View: Portable, 1 view Interpretation / Wet Read by: Interpret - Radiologist Re-Eval/Medical Decision Med Decision/Clinical Course Infectious respiratory symptoms with hypercapnic hypoxic respiratory failure and pulmonary edema versus infectious infiltrates on x-ray. Patient denies chest pain does not have an ST elevation KS. Broad-spectrum antibiotics are initiated. Nephrology is consulted and the patient will be emergently dialyzed. Additionally, the patient was placed immediately onto BiPAP after the blood gas results were obtained. Patient will be admitted. Aspirin was given. Source of Hx: Old records Re-Evaluation/Progress #1: Time of Eval: 11:44 Re-Evaluation/Progress Note: Discussed lab and imaging results and need for admission. Patient is amenable to the plan. All other questions addressed. Re-Evaluation/Progress #2: Time of Eval: 12:40 Re-Evaluation/Progress Note: Patient denies chest pain. Consultation #1: Referral / Consult Name: Joel Cortes DO Consulted With: Nephrology Call Returned at: 11:53 Bench Hand Machine: Will see patient Note: Agrees to dialyze patient. Consultation #2: Referral / Consult Name: JosemanuelpremJacy DO Consulted With: Hospitalist Call Returned at: 12:37 Bench Hand Machine: Agrees with eval, Agrees with plan, Accepts admit Counseled Regarding: Diagnosis, Lab results, Need for admission Patient Discharge & Departure Impression: Primary Impression: Hypercapnic respiratory failure Disposition: ADMITTED TO HOSPITAL Discharge Condition All VS Reviewed: Yes Condition: Stable Referrals: Geronimo Main DO (PCP) Crit Care Except Billable Proc Time Spent: 30-74 minutes (63) Services Performed: Patient management by me, Time spent at bedside, Reviewing test results, Reviewing imaging, Discussing patient care, Documentation in record Scribe Attestation Portions of this note were transcribed by Flynn Montalvo. I, Dr. Mitchell, personally performed the history, physical exam and medical decision-making; I reviewed and confirmed the accuracy of the information in the transcribed note. Signed by: Jim Black, 12/14/2016 at 12:40 copies to: Geronimo Main Timothy S DO December 14, 2016 11:17 FLYNN MONTALVO December 14, 2016 11:22
[2016-12-14] MEDS ORDERED: Albuterol-Ipratropium 3 mL Inhalation Solution NEB ONE (11:25)
[2016-12-14] MEDS ORDERED: Albuterol 2.5 mg/3 mL Inhalation Solution NEB ONE (11:25)
[2016-12-14 11:27] LABS: BASOPHILS % (AUTO) 0.2 % (0-3)
--- NOTE | 2016-12-14 11:34 | DRSVH ---
PROCEDURE: X-RAY CHEST ONE VIEW, PORTABLE ([id number]) INDICATIONS: dyspnea TECHNIQUE: One view of the chest was acquired. COMPARISON: None. FINDINGS: Surgical changes and devices: There is a right-sided Port-A-Cath central line identified with the tip overlying the mid superior vena cava. Lungs and pleura: No pneumothorax is evident. The pulmonary vasculature is increased. No large effu mio is identified. Mediastinum: Mediastinal contours appear normal. Heart size is mildly prominent. Bones and chest wall: No suspicious bony lesions. Overlying soft tissues appear unremarkable. IMPRESSION: 1. Mild cardiomegaly with associated vascular congestion is suspicious for developing pulmonary justin a. 2. Right-sided central line catheter is positioned with the tip overlying the mid superior vena cava . 3. No pneumothorax. Dictated by: Ghanshyam Monroy M.D. on 12/14/2016 at 10:32 Approved by: Ghanshyam Monroy M.D. on 12/14/2016 at 10:33
--- NOTE | 2016-12-14 11:37 | ABG ---
DateTimeAnalyzed 11:32:00 -_ pH ____7.120 - pCO2 ___89.8__ -mmHg pO2 ___36.6__ -mmHg HCO3- ___28.0__ -mmol/L ABE ___-3.2__ -mmol/L tHb ___11.4__ -g/dL O2Hb ___61.4__ -% COHb ____1.3__ -% MetHb ____1.5__ -% sO2 ___63.2__ -% FIO2 ___36.0__ -% Drawn By jmw - Date/Time Notified____ 11:36:00 -_ Liter_Flow ____4.0__ -L/min Oxygen Device 1 __CANNULA - Notified By JMW - Notified Whom DR O,ARCHIE - B 763 -mmHg tO2 ____9.9__ -Vol% Umberto test N/A -
[2016-12-14] MEDS ORDERED: Doxycycline Inj 100 MG in Dextrose 5% Minibag Plus 100 ML IV ONE (11:40)
[2016-12-14] MEDS ORDERED: Piperacillin-Tazo 3.375 Gm Inj 3.375 GM in Dextrose 5% Minibag Plus 50 ML IV ONE (11:40)
[2016-12-14 11:41] LABS: INR 0.91 ratio
[2016-12-14 11:47] LABS: EOSINOPHILS % (AUTO) 1.6 % (0-5); MONOCYTES % (AUTO) 6.1 % (4-12); NEUTROPHILS % (AUTO) 77.3 % (40-74)
[2016-12-14 11:53] LABS: Mean Corpuscular Hemoglobin 29.8 pg (27.0-35.0); Mean Corpuscular Volume 98.5 fL (81-100); Platelet Count 263 bil/L (150-400)
[2016-12-14] MEDS ORDERED: Vancomycin Inj 1,500 MG in 0.9% Sodium Chloride 500 ML IV ONE (11:55)
[2016-12-14 12:13] LABS: Magnesium 2.6 mg/dL (1.6-2.6)
[2016-12-14 12:21] LABS: TROPONIN T 1.02 ug/L (0.0-0.011)
[2016-12-14] MEDS ORDERED: Alum-Mag Hydrox-Simeth 30 mL Suspension PO PRN ×2 (12:40→14:50)
[2016-12-14] MEDS ORDERED: Ondansetron 2 mg/mL 2 mL Inj IVPUSH PRN ×2 (12:40→14:50)
[2016-12-14 12:51] LABS: APPEARANCE,URINE TURBID (CLEAR,HAZY); COLOR,URINE STRAW (YELLOW)
[2016-12-14] MEDS ORDERED: CHOL500050 PO (12:51)
[2016-12-14] MEDS ORDERED: [UNRECOGNIZED DRUG - CODE] (12:51)
[2016-12-14] MEDS ORDERED: LUBI24CA4 PO (12:51)
[2016-12-14] MEDS ORDERED: ASCO-294 PO (12:51)
[2016-12-14 12:52] LABS: OCCULT BLOOD,URINE LARGE (NEGATIVE); UROBILINOGEN,URINE NORMAL (NORMAL); YEAST,URINE FEW (NONE SEEN)
[2016-12-14] MEDS ORDERED: NA P133E23 RC (12:54)
[2016-12-14] MEDS ORDERED: CALC625T76 PO (12:54)
[2016-12-14] MEDS ORDERED: HYDR2TAB28 PO (13:00)
[2016-12-14] MEDS ORDERED: INSU100I18 SUBQ (13:00)
[2016-12-14] MEDS ORDERED: MELA3TAB11 PO (13:05)
[2016-12-14] MEDS ORDERED: PREG75CA PO (13:05)
[2016-12-14] MEDS ORDERED: POLY17PO6 PO (13:11)
[2016-12-14] MEDS ORDERED: DEXTROSE 5% IV SCH (14:12)
[2016-12-14] MEDS ORDERED: CEFTAZIDIME IV SCH (14:12)
[2016-12-14] MEDS ORDERED: Polyethylene Glycol (PEG) 17 Gm Powder PO PRN (14:50)
[2016-12-14] MEDS ORDERED: Senna-Docusate 8.6-50 mg Tablet PO PRN (14:50)
--- NOTE | 2016-12-14 15:13 | PCM.HPMED ---
Subjective Date of Service December 14, 2016 Primary Provider: Admitting Physician: Rinku Waldrop MD Primary Care Physician: Geronimo Main DO Attending Physician: Rinku Waldrop MD Chief Complaint: Respiratory failure History of Present Illness: Sarah Jang is a 55-year-old woman with past medical history significant for ESRD on HD, calciphylaxis complicated by frequent infections, diabetes mellitus type II, insulin-dependent, coronary artery disease, and morbid obesity who presents to the [facility] ER from her fdc facility secondary to complaints of difficulty breathing and congestion as well as decreased level of consciousness. Per the patient's report she was diagnosed with a pneumonia at her fdc facility and was started on antibiotic the name of which she does not recall and had completed her course. Several days after she began coughing again with a clear productive sputum. She has not skipped any of her dialysis sessions and her last scheduled session was 2 days ago. The patient is a difficult historian and becomes very agitated and emotional upon any extensive questioning and is difficult to ascertain any linear thought. Patient denies any fever, chills, vomiting, diarrhea, abdominal pain, weakness, numbness. The etiology of her renal failure is due to long-standing, gated insulin requiring diabetes mellitus and hypertension. In the emergency department her vital signs were stable. A venous blood gas was obtained which showed a pH of 7.128 PaCO2 of 98 PaO2 of 36.6. She was thus placed on BiPAP. Chest x-ray showed pulmonary edema thus nephrology was consulted for emergent dialysis. The patient was also started on ceftazidime. As the patient's troponin was elevated in the ED physician elected to give him a loading dose of aspirin. Review of Systems: A comprehensive review of systems was completed and is negative except as noted above in history of present illness. Allergies Coded Allergies: bupropion (Verified Allergy, Severe, night terrors, 12/14/16) ciprofloxacin (Verified Allergy, Severe, Nausea,Vomiting, 12/14/16) n/v for days afterwards codeine (Verified Allergy, Unknown, 12/14/16) Home Medications Discharge Medications Ascorbic Acid (Vitamin C) 500 Mg Capsule.er 500 MG PO DAILY (Reported) Aspirin (Aspirin) 81 Mg Tablet 81 MG PO DAILY (Reported) Atorvastatin Calcium (Atorvastatin Calcium) 80 Mg Tablet 80 MG PO HS (Reported) Docusate Sodium (Docusate Sodium) 250 Mg Capsule 250 MG PO BID (Reported) Furosemide (Furosemide) 80 Mg Tab 80 MG PO DAILY (Reported) Heparin Sodium,Porcine (Heparin Sodium) 5,000 Unit/1 Ml Vial 5,000 UNIT SUBQ BID (Reported) Insulin Glargine (Lantus U100 Insulin Vial) 100 Unit/Ml Vial 17 UNIT SUBQ BID ( Reported) Insulin Lispro (HumaLOG U100 Insulin Pen) 100 Unit/1 Ml Insuln.pen 10 UNIT SUBQ TIDAC (Reported) Ipratropium/Albuterol Sulfate (Iprat-Albut 0.5-3(2.5) mg/3 mL Inhalant Soln) 3 Ml Ampul.neb 3 ML IH Q4 (Reported) Levothyroxine (Levothyroxine) 100 Mcg Tablet 100 MCG PO DAILY (Reported) Lidocaine (Lidoderm) 700 Mg Adh..patch 1 PATCH TP DAILY (Reported) ON for 12hrs/ OFF for 12hrs Metoprolol Succinate ER (Metoprolol Succinate ER) 50 Mg Tab.er.24h 50 MG PO DAILY (Reported) Miconazole Nitrate (Miconazole Nitrate) 7 Appl/45 Gm Cream.appl 1 APPL TOPICAL TID (Reported) For yeast in groin Naloxegol Oxalate (Movantik) 12.5 Mg Tablet 12.5 MG PO DAILY (Reported) Oxybutynin Chloride ER (Ditropan XL) 5 Mg Tab.er.24 10 MG PO DAILY (Reported) Pantoprazole DR (Pantoprazole DR) 40 Mg Tablet.dr 40 MG PO BID (Reported) Polyethylene Glycol 3350 (Miralax) 17 Gm Powd.pack 17 GM PO QPM (Reported) Pregabalin (Lyrica) 75 Mg Capsule 75 MG PO TID (Reported) Saccharomyces Boulardii (Florastor) 250 Mg Capsule 250 MG PO BID (Reported) Sennosides (Senna) 8.6 Mg Tablet 17.2 MG PO BID (Reported) Sevelamer Carbonate (Renvela) 800 Mg Tablet 3,200 MG PO TIDWM (Reported) Venlafaxine (Venlafaxine) 100 Mg Tablet 100 MG PO BIDWM (Reported) As needed Acetaminophen (Acetaminophen) 325 Mg Tablet 1-2 EACH PO Q4H PRN PRN For Pain ( Reported) Albuterol Sulfate (Ventolin HFA Inhaler) 200 Puff/18 Gm Inhaler 1-2 PUFF INH Q4 PRN PRN For Shortness of Breath (Reported) Bisacodyl (Dulcolax Rectal) 10 Mg Supp.rect 10 MG RC DAILY PRN PRN For Constipation (Reported) If no BMx12 shifts Hydromorphone (Dilaudid) 2 Mg Tablet 1-2 MG PO DAILY PRN PRN dressing changes Prescribed by: KIRIT JUAREZ DO Hydromorphone (Hydromorphone) 2 Mg Tablet 2 MG PO QID PRN PRN Pain Prescribed by: KIRIT JUAREZ DO Magnesium Hydroxide (Milk of Magnesia) 400 Mg/5 Ml Oral.susp 30 ML PO DAILY PRN PRN For Constipation (Reported) If no BMx9 shifts Melatonin/Pyridoxine (Melatonin 3 mg Tablet) 1 Each Tablet 2 EACH PO HS PRN PRN Insomnia (Reported) May repeat x1 Methocarbamol (Methocarbamol) 500 Mg Tablet 1,000 MG PO QID PRN PRN For Pain ( Reported) Na Phos,M-B/Na Phos,Di-Ba (Fleet Enema) 133 Ml Enema 133 ML RC DAILY PRN PRN For Constipation (Reported) If no BMx15 shifts Ondansetron (Ondansetron) 4 Mg Tablet 4 MG PO TID PRN PRN For Nausea (Reported) PMH Type 2 diabetes mellitus Hypothyroidism GERD Asthma Dyslipidemia Depression Chronic constipation ESRD on HD Chronic respiratory failure CAD with history of NSTEMI Hypertension Urinary incontinence Lower extremity lymphedema History of ruptured ovarian cyst Surgical History Sinus surgery Tonsillectomy Endometrial ablation Family History Mother is alive with hypertension Father is alive with prostate cancer and Parkinson's Social History Hx Alcohol Use: No Hx Substance Use: No Hx Tobacco Use: No Smoking Status: Unknown if Ever Smoker Exam Vital Signs Vital Sign - Last Date Time Temp Pulse Resp B/P Pulse Ox O2 Delivery O2 Flow Rate FiO2 12/14/16 14:00 36.6 83 18 180/81 95 BiPAP 24 12/14/16 12:11 4 Exam General: No acute distress, well-developed, well-nourished, appropriately interactive HEENT: Normocephalic, atraumatic. External ears without defect. Pupils equal, round, and reactive to light. Anicteric sclerae, moist conjunctivae, and no lid lag. Oropharynx free of erythema and cobble stoning with moist mucosa. BiPAP mask in place Neck: Supple with full range of motion. No jugular venous distension although difficult to ascertain due to body habitus. No lymphadenopathy or thyromegaly. Chest: Right chest with tunneled HD catheter without any sign of infection. Regular rate and rhythm with no murmurs, rubs, or gallops appreciated although difficult to ascertain due to body habitus. Pulmonary: Diffuse crackles although difficult to ascertain due to body habitus. Normal respiratory effort with no use of accessory muscles. Abdomen: Decreased bowel tones. Soft, nontender, distension. Obese. Extremities: Bilateral pitting lower extremity edema with stasis dermatitis changes. Skin: Normal temperature, turgor, and texture; no rash, ulcers, or subcutaneous nodules appreciated. Neurological: Cranial nerves grossly intact. Psychiatric: Antagonistic personality. Patient does not want to answer questions directly becomes very agitated and begins to weep. Alert and oriented to person, place, and time. Lab and Diagnostics Result Diagram: 12/14/16 1115 12/14/16 1115 X-Rays, CTs and MRIs X-RAY CHEST ONE VIEW, PORTABLE IMPRESSION: 1. Mild cardiomegaly with associated vascular congestion is suspicious for developing pulmonary edema. 2. Right-sided central line catheter is positioned with the tip overlying the mid superior vena cava. 3. No pneumothorax. Dictated by: Ghanshyam Monroy M.D. on 12/14/2016 at 10:32 Assessment & Plan Sarah Jang is a 55-year-old woman with past medical history significant for ESRD on HD, calciphylaxis complicated by frequent infections, diabetes mellitus type II, insulin-dependent, coronary artery disease, and morbid obesity who presents to the [facility] ER from her fdc facility secondary to complaints of difficulty breathing and congestion as well as decreased level of consciousness. 1. Acute on chronic hypercarbic hypoxemic respiratory failure likely secondary to fluid overload and obesity hypoventilation, present on admission -BiPAP, will recheck ABGs tonight -Anticipate that the patient will improve back to her baseline after she is dialyzed -Likely her AMS was secondary to CO2 toxicity and it appears to have resolved. 2. Pulmonary edema, present on admission -Unlikely that the patient had pneumonia, her pro-calcitonin elevation can be explained by her renal failure -Chest x-ray is more consistent with fluid overload and then an infectious etiology -She is to undergo emergent dialysis today. 3. ESRD, chronic. Present on admission. Active -Followed by Dr. Jon outpatient -HD on Wed, Wed -Nephrology consulted. Recommendations per nephrology were appreciated 4. Elevated troponin of uncertain significance -This is likely secondary to fluid overload and cardiac strain and poor renal clearance secondary to the ESRD -Repeat troponin trending down -Echo ordered 5. Possible urinary tract infection -Patient appears to have a chronic leukocytosis. Her procalcitonin elevation is mild and can be explained with poor renal clearance however her UA is shows packed WBCs -The patient does note some intermittent dysuria. -Urine sent for cultures, blood sent for cultures -Dr. Cortes ordered ceftazidime with dialysis. 6. Acute hyperkalemia. Present on admission. Active -Mildly elevated at 5.9, she is to undergo dialysis today 7. Calciphylaxis, chronic. Present on admission. Active -Continue Renvela to 4 tabs TID with meals. -Avoided calcium-containing phosphate binders. 8. Type 2 diabetes mellitus, chronic. Present on admission -Continue home dose Lantus BID -High dose correctional Lispro 9. Hypothyroidism, chronic. Present on admission -Continue home dose levothyroxine 10. Asthma, chronic. Present on admission -Albuterol PRN, DuoNeb QID 11. GERD, chronic. Present on admission -Continue home dose PPI 12. Dyslipidemia, chronic. Present on admission -Continue home dose statin 13. Depression, chronic. Present on admission -Continue home dose Effexor 14. CAD with history of NSTEMI, chronic. Present on admission -Continue home dose metoprolol, statin, ASA 15. Hypertension, chronic. Present on admission -Continued home dose metoprolol, Lasix 16. Urinary incontinence, chronic. Present on admission -Continued home dose oxybutynin CODE STATUS: FULL CODE Patient admitted under inpatient status with anticipated length of stay greater than 2 midnights due to severity of symptoms, complexity of plan and possibility for deterioration. Pain Evaluation: Adequate Pain Control VTE Prophylaxis: Sub-Q Heparin (Unfractionated) Resuscitation Status: CPR: Attempt Resuscitation Attending Statement Patient was seen and examined with . Patient would get highly irritated with any questioning about her history or health condition, objective findings on exam, etc. chart was reviewed and agree with the history and physical, assessment and plan as above. Case discussed with Dr. Cortes nephrology recruiting operations consultant and Dr. Galarza pulmonary recruiting operations consultant. Jacy Howard DO December 14, 2016 15:13 Rinku Waldrop MD December 14, 2016 22:29
[2016-12-14] MEDS ORDERED: Heparin 5,000 Unit/mL Inj SUBQ SCH (16:30)
--- NOTE | 2016-12-14 16:30 | CONS ---
[address] [address] CONSULTATION REPORT PATIENT: CALEB UGARTE : 1960 MR#: [id number] ADMIT: 12/14/2016 JOB ID: [id number] CORRECTED REPORT: DATE OF SERVICE: 12/14/2016 HISTORY: The patient is a 55-year-old, female, who was admitted to [facility] for acute pulmonary edema, acute respiratory failure with hypercarbia. She has a history of end-stage renal disease and renal consultation is being sought for further evaluation of her end-stage renal disease. The patient has a history of end-stage renal disease secondary to insulin-dependent diabetes mellitus and hypertension. She normally dialyzes on Wednesday, , and Wednesday, and her last dialysis was this past Wednesday. She states that she was feeling well yesterday and did not take any excessive amount of fluid in. This morning she states that she had an abrupt onset of difficulty breathing and pulmonary congestion over the preceding night. She was markedly short of breath and was admitted through the emergency department. In the emergency department she was found to have an acute respiratory acidosis with a pCO2 of 90, pH 7.12, and a bicarbonate of 28. Unfortunately, we do not have any baseline blood gases to compare this to. In reviewing her history, there does not appear to be a history of any COPD, asthma, emphysema, or history of tobacco use. In the emergency department, she was placed on BiPAP with improvement in her oxygenation. During my evaluation, she continued to complain of air hunger and difficulty breathing. However, her oxygenation was excellent. In the emergency department, her potassium was found to be elevated at 5.9. PAST MEDICAL HISTORY: Significant for end-stage renal disease--dialysis dependent secondary to longstanding insulin-requiring diabetes mellitus and hypertension with hypertensive heart disease and hypertensive nephrosclerosis. She also has a history of severe lymphedema with peripheral vascular disease, hyperlipidemia, hypothyroidism, and peripheral neuropathy. She resides at a facility. PAST SURGICAL HISTORY: Significant for placement of an AV fistula, excision of an ovarian cyst, sinus surgery, and endometrial ablation. ALLERGIES: She is allergic to: 1. CODEINE. 2. BUPROPION. 3. CIPROFLOXACIN. SOCIAL HISTORY: She denies use of alcohol, tobacco, or illicit drugs and currently resides at an extended care facility. FAMILY HISTORY: Unobtainable. REVIEW OF SYSTEMS: Is detailed above. However, she denies any recent illness, fever, chills, nausea, or vomiting. PHYSICAL EXAMINATION: Revealed an obese, chronically ill-appearing 55-year-old, white female, who looks considerably older than her stated age. Her blood pressure is 168/78, with a heart rate of 86. HEENT examination is remarkable for mildly pale sclerae. Neck is supple without adenopathy, thyromegaly, and there appears to be some jugular venous distention. Lungs showed diffuse rales and end-expiratory wheezes in all lung small. Heart was irregularly irregular and tachycardic. Abdomen is distended but soft. There are normal bowel sounds. There was no tenderness, rebound, guarding, masses or hepatosplenomegaly. Extremities did not show any evidence of any clubbing or cyanosis or pitting edema. She does have moderate diffuse lymphedema in both lower extremities, more significantly in her distal lower extremities. Skin turgor was good and there is no evidence of any rashes. LABORATORY EXAMINATION: This morning, her white count is 12.2, hemoglobin of 11.7. Red cell indices and platelet count were normal. Her differential was remarkable for 77 neutrophils. Urinalysis showed turbid urine with a specific gravity of 1.020, pH was 7. Tests for protein, glucose, occult blood, and leukocyte esterase were positive. She had 11-50 RBCs per high-power field and packed WBCs per high-power field and moderate bacteria. Her sodium is 141, potassium 5.9, chloride 98, bicarbonate 25. BUN and creatinine were 44 and 5.8 respectively. Chest x-ray showed diffuse pulmonary edema. IMPRESSION: 1. Acute pulmonary edema. 2. Acute hyperkalemia. 3. Acute pyelonephritis. 4. Diabetic nephropathy. 5. Hypertension with hypertensive heart disease and hypertensive nephrosclerosis. RECOMMENDATION: I will go ahead and make arrangements for her dialysis today. We will do her for 3 hours on a 2 potassium bath and try to take a 2-3 L of fluid off. We also need to obtain blood cultures, and I would recommend starting her empirically on ceftazidime 1 g IV every 24 hours Once again, I would like to thank you for allowing me to participate in the care of this most pleasant and interesting patient. I will be following her closely with you. Corrected by STEPHANY 12/31/16 at 12:53pm DOS.
[2016-12-14] MEDS: DEXTROSE 5% IV SCH (18:15)
[2016-12-14] MEDS: CEFTAZIDIME IV SCH (18:15)
--- NOTE | 2016-12-14 19:08 | PCM.PNMED ---
Subjective Date of Service December 14, 2016 Subjective Brief PCCM note Full consult to follow Asked to assist in eval and management of Ms. Jang who is a morbidly obese woman with ESRD on HD who was admitted with dyspnea and AMS. VBG showed acute hypercarbic respiratory failure. CXR shows patchy alveolar infiltrates, BNP is markedly elevated, and PCT is elevated as well. She is alert and confused but follows commands. Is frustrated with word finding difficulty at times. Wants to remove the BiPAP mask. Endorses SOB but denies CP , fever, chills Exam Vital Signs Vital Sign - Last Date Time Temp Pulse Resp B/P Pulse Ox O2 Delivery O2 Flow Rate FiO2 12/14/16 17:10 104 18 143/127 97 24 12/14/16 16:57 Supplement Oxygen CPAP/BIPAP 12/14/16 16:57 36.7 12/14/16 12:11 4 Exam Pale obese woman with Full face BiPAP in place No accessory muscle use Ve 17 L/min SpO2 99% on FiO2 0.24 Lungs Decreased BS at bases, scattered rales, NO wheezes CV Distant HTs, RRR no m/g/r Abd Soft, nontender, + BTs Ext 1+ bilat ankle edema with warmth and erythema of both feet Neuro Moves all 4 ext. gaze conjugate, tongue midline Lab and Diagnostics Result Diagram: 12/14/16 1115 12/14/16 1115 X-Rays, CTs and MRIs X-RAY CHEST ONE VIEW, PORTABLE IMPRESSION: 1. Mild cardiomegaly with associated vascular congestion is suspicious for developing pulmonary edema. 2. Right-sided central line catheter is positioned with the tip overlying the mid superior vena cava. 3. No pneumothorax. Dictated by: Ghanshyam Monroy M.D. on 12/14/2016 at 10:32 Assessment & Plan Sarah Jang is a 55-year-old woman with past medical history significant for ESRD on HD, calciphylaxis complicated by frequent infections, diabetes mellitus type II, insulin-dependent, coronary artery disease, and morbid obesity who presents to the [facility] ER from her group home facility secondary to complaints of difficulty breathing and congestion as well as decreased level of consciousness. Acute hypercarbic respiratory failure. Not clear if any meds contribute but her pregabalin dose seems high for an patient with ESRD. Exam is not suggestive of opiate excess ( no myoclonus, myosis ) She is easily arousable with some word finding difficulty which seems unusual if this is simple CO2 narcosis. Sepsis could contribute with confusion, elevated PCT and h/o multiple skin wounds recently ( I did not do a full skin survey due to her body habitus). Her TSH should be checked to rule this out as a contributor to her hypoventilation. Her VBG; should be repeated STAT. Hopefully her pCO2 and pH are improved. If so, her BiPAP can be alternated with minimal O2 supplementation to keep SpO2 > 90%. If her acid/base status worsens and she can not tolerated BiPAP, she will need to be intubated, If this occurs, I favor a noncontrast head CT to exclude other processes which might explain her AMS Hydrostatic pulmonary edema, Needs dialysis Possible sepsis, I would have a low threshold for starting empiric antibiotics targeting skin and lung REC VBG, wean BiPAP as tolerates if her pH and pCO2 are improving. Intubate for ventilation if she fails this approach. TSH Empiric abx Nephrology consult re: ? need for dialysis tonight Decrease pregabalin, hold all other sedating meds VTE prophylaxis VTE Prophylaxis: Sub-Q Heparin (Unfractionated) Resuscitation Status: CPR: Attempt Resuscitation Peter Galarza MD December 14, 2016 19:08 -Continue Renvela to 4 tabs TID with meals. -Avoided calcium-containing phosphate binders. 8. Type 2 diabetes mellitus, chronic. Present on admission -Continue home dose Lantus BID -High dose correctional Lispro 9. Hypothyroidism, chronic. Present on admission -Continue home dose levothyroxine 10. Asthma, chronic. Present on admission -Albuterol PRN, DuoNeb QID 11. GERD, chronic. Present on admission -Continue home dose PPI 12. Dyslipidemia, chronic. Present on admission -Continue home dose statin 13. Depression, chronic. Present on admission -Continue home dose Effexor 14. CAD with history of NSTEMI, chronic. Present on admission -Continue home dose metoprolol, statin, ASA 15. Hypertension, chronic. Present on admission -Continued home dose metoprolol, Lasix 16. Urinary incontinence, chronic. Present on admission -Continued home dose oxybutynin CODE STATUS: FULL CODE Patient admitted under inpatient status with anticipated length of stay greater than 2 minutes due to severity of symptoms, complexity of plan and possibility for deterioration. VTE Prophylaxis: Sub-Q Heparin (Unfractionated) Resuscitation Status: CPR: Attempt Resuscitation Peter Galarza MD December 14, 2016 19:08
[2016-12-14] MEDS ORDERED: Glucose 40% Oral Gel 15 Gm Tube PO PRN (19:30)
--- NOTE | 2016-12-14 19:40 | ABG ---
DateTimeAnalyzed 19:35:00 -_ pH ____7.459 - pCO2 ___41.8__ -mmHg pO2 ___23.0__ -mmHg HCO3- ___29.3__ -mmol/L ABE ____5.3__ -mmol/L tHb ___10.4__ -g/dL O2Hb ___47.2__ -% COHb ____0.3__ -% MetHb ____0.8__ -% sO2 ___47.7__ -% FIO2 ___24.0__ -% CPAP ___16.0__ -cmH2O PEEP ____6.0__ -cmH2O Set_RR ___16.0__ -b/min Drawn By AF - Date/Time Notified____ 19:39:00 -_ Spontaneous_RR ___20.0__ -b/min Oxygen Device 1 ____BIPAP - Notified By AF - Notified Whom _Karla RN - B 761 -mmHg tO2 ____6.9__ -Vol% Umberto test N/A -
[2016-12-14] MEDS ORDERED: Albuterol 2.5 mg/3 mL Inhalation Solution NEB PRN (20:00)
[2016-12-14] MEDS: Albuterol-Ipratropium 3 mL Inhalation Solution INHALATION SCH (20:05)
[2016-12-14] MEDS ORDERED: Insulin GLARgine 100 Unit/mL Syringe SUBQ SCH (20:30)
[2016-12-14] MEDS ORDERED: Ergocalciferol (Vit D2) 50,000 Unit Capsule PO SCH (20:30)
[2016-12-14] MEDS: Polyethylene Glycol (PEG) 17 Gm Powder PO SCH ×2 (21:00→22:00)
[2016-12-14] MEDS: Heparin 5,000 Unit/mL Inj SUBQ SCH (21:44)
[2016-12-14] MEDS: Insulin LISPRO 300 Unit/3 mL Inj SUBQ SCH (21:56)
[2016-12-14] MEDS: Insulin GLARgine 100 Unit/mL Syringe SUBQ SCH (21:59)
[2016-12-15] VITALS (11 sets, daily range): BP systolic 110–155; BP diastolic 59–78; PULSE 73–95; RESP 16–20; O2SAT 89–98
[2016-12-15] MEDS: Albuterol-Ipratropium 3 mL Inhalation Solution INHALATION SCH ×6 (00:20→20:34)
[2016-12-15 03:28] LABS: BASOPHILS % (AUTO) 0.3 % (0-3); EOSINOPHILS % (AUTO) 2.5 % (0-5); MONOCYTES % (AUTO) 8.4 % (4-12); Mean Corpuscular Hemoglobin 28.6 pg (27.0-35.0); Mean Corpuscular Volume 98.4 fL (81-100); NEUTROPHILS % (AUTO) 77.6 % (40-74); Platelet Count 236 bil/L (150-400)
[2016-12-15] MEDS: Insulin LISPRO 300 Unit/3 mL Inj SUBQ SCH ×4 (08:00→22:00)
[2016-12-15] MEDS ORDERED: CEFTAZIDIME 2000 MG IM SCH (08:30)
[2016-12-15] MEDS ORDERED: MeTOProlol XL 50 mg ER24 Tablet PO SCH (08:30)
[2016-12-15] MEDS ORDERED: Vancomycin Dose per Pharmacist XX SCH (08:30)
[2016-12-15] MEDS: CEFTAZIDIME IV SCH (08:39)
[2016-12-15] MEDS: DEXTROSE 5% IV SCH (08:39)
[2016-12-15] MEDS: Heparin 5,000 Unit/mL Inj SUBQ SCH ×2 (10:00→22:30)
[2016-12-15] MEDS: Ascorbic Acid 500 mg Tablet PO SCH (10:01)
[2016-12-15] MEDS: MeTOProlol XL 25 mg ER24 Tablet PO SCH (10:04)
[2016-12-15] MEDS: Lidocaine Topical 5% Patch TOPICAL SCH (10:29)
--- NOTE | 2016-12-15 10:52 | ABG ---
DateTimeAnalyzed 10:47:00 -_ pH ____7.345 - pCO2 ___52.3__ -mmHg pO2 ___35.4__ -mmHg HCO3- ___27.8__ -mmol/L ABE ____2.0__ -mmol/L tHb ___10.0__ -g/dL O2Hb ___67.9__ -% COHb ____1.8__ -% MetHb ____1.6__ -% sO2 ___70.3__ -% FIO2 ___26.0__ -% Drawn By NB - Date/Time Notified____ 10:51:00 -_ Oxygen Device 1 __CANNULA - B 759 -mmHg tO2 ____9.5__ -Vol% Umberto test N/A -
--- NOTE | 2016-12-15 11:54 | PCM.PNNEPH ---
Subjective Date of Service December 15, 2016 Subjective The patient is resting more comfortably. She is more alert and oriented and is off BiPAP. She denies any headache, chest pain, or shortness of breath. Exam Vital Signs Vital Sign - Last Date Time Temp Pulse Resp B/P Pulse Ox O2 Delivery O2 Flow Rate FiO2 12/15/16 11:17 95 12/15/16 09:19 16 96 Nasal Cannula 1.00 12/15/16 08:16 36.5 149/75 12/14/16 20:05 24 Intake and Output 12/14/16 12/14/16 12/15/16 Cumulative From/Thru 15:00 23:00 07:00 12/14/16 11:23 - 12/15/16 05:57 Intake Total 685 ml 250 ml 935 ml Output Total 4400 ml 4400 ml Balance -4400 ml 685 ml 250 ml -3465 ml Intake Oral 100 ml 250 ml 350 ml IV Total 585 ml 585 ml Output Urine Total 400 ml 400 ml Ultrafiltrate 4000 ml 4000 ml # Bowel Movements 0 0 Exam Neck is supple without adenopathy, or megaly, or jugular venous distention. Lungs are clear to auscultation. Heart was regular and rhythmical with a soft systolic murmur. Abdomen is soft without any tenderness or rebound guarding masses or hepatosplenomegaly. She does not show any evidence of any clubbing, cyanosis, or edema. Skin turgor is good. Lab and Diagnostics Result Diagram: 12/15/16 0320 12/15/16 0320 X-Rays, CTs and MRIs X-RAY CHEST ONE VIEW, PORTABLE IMPRESSION: 1. Mild cardiomegaly with associated vascular congestion is suspicious for developing pulmonary edema. 2. Right-sided central line catheter is positioned with the tip overlying the mid superior vena cava. 3. No pneumothorax. Dictated by: Ghanshyam Monroy M.D. on 12/14/2016 at 10:32 Plan Impression Impression #1 acute pulmonary edema which is resolved #2 end-stage renal disease dialysis dependent 3 hypertension with hypertensive heart disease and hypertensive nephrosclerosis number for calciphylaxis Recommendation #1 I will make recommendations for her dialysis in the morning. Joel Cortes DO December 15, 2016 11:54
[2016-12-15] MEDS ORDERED: Sodium Biphos-Phos 133 mL Enema RECTAL ONE (13:40)
--- NOTE | 2016-12-15 16:30 | PCM.PNMED ---
Subjective Date of Service December 15, 2016 Subjective 55yo morbidly obese woman with ESRD on HD who was admitted throught the ER from [facility] where she is a longterm resident with dyspnea and AMS. She was given emergent dialysis here at the hospital. Respiratory distress largely resolved by late morning that patient still on oxygen 2 L by nasal cannula. She reports that she does wear oxygen with nasal cannula every night but only to hold open her nostrils. AMS was resolved by the time of my exam but patient is not a good historian having told the nurse she was sure that taking 2 extra pain pills for ear pain had caused her altered mental status and then denying that that could be a problem to the internal medicine team. She is in no apparent distress, but does request an enema for her constipation, declaring that she needs weekly disimpaction or enemas. Exam Vital Signs Vital Sign - Last Date Time Temp Pulse Resp B/P Pulse Ox O2 Delivery O2 Flow Rate FiO2 12/15/16 15:15 36.9 88 20 148/73 96 Nasal Cannula 1.00 12/14/16 20:05 24 Intake and Output 12/14/16 12/14/16 12/15/16 Cumulative From/Thru 15:00 23:00 07:00 12/14/16 11:23 - 12/15/16 05:57 Intake Total 685 ml 250 ml 935 ml Output Total 4400 ml 4400 ml Balance -4400 ml 685 ml 250 ml -3465 ml Intake Oral 100 ml 250 ml 350 ml IV Total 585 ml 585 ml Output Urine Total 400 ml 400 ml Ultrafiltrate 4000 ml 4000 ml # Bowel Movements 0 0 Exam General: No acute distress, well-developed, well-nourished, morbidly obese, appropriately interactive HEENT: Normocephalic, atraumatic. External ears without defect. Pupils equal, round, and reactive to light. Anicteric sclerae, moist conjunctivae, and no lid lag. Neck: Supple with full range of motion. No jugular venous distension although difficult to ascertain due to body habitus. . Chest: Right chest with tunneled HD catheter without any sign of infection. Regular rate and rhythm with no murmurs, rubs, or gallops appreciated although difficult to ascertain due to body habitus. Pulmonary: Diffuse crackles although difficult to ascertain due to body habitus. Normal respiratory effort with no use of accessory muscles. Abdomen: Decreased bowel tones. Soft, nontender, distension. Obese. Extremities: Bilateral 3+ pitting lower extremity edema with stasis dermatitis changes. Skin: Normal temperature, turgor, and texture; no rash, ulcers, or subcutaneous nodules appreciated. Neurological: Cranial nerves grossly intact. Psychiatric: Alert and oriented to person, place, and time. IVs and Medications Medications Reviewed: Medications were reviewed in detail Lab and Diagnostics Result Diagram: 12/15/16 03212/15/16 032 X-Rays, CTs and MRIs X-RAY CHEST ONE VIEW, PORTABLE IMPRESSION: 1. Mild cardiomegaly with associated vascular congestion is suspicious for developing pulmonary edema. 2. Right-sided central line catheter is positioned with the tip overlying the mid superior vena cava. 3. No pneumothorax. Dictated by: Ghanshyam Monroy M.D. on 12/14/2016 at 10:32 12-lead ECG Sinus rhythm, rate 81 Probable LVH No acute ischemia Assessment & Plan Sarah Jang is a 55-year-old woman with past medical history significant for ESRD on HD, calciphylaxis complicated by frequent infections, diabetes mellitus type II, insulin-dependent, coronary artery disease, and morbid obesity who presents to the [facility] ER from her custodial facility secondary to complaints of difficulty breathing and congestion as well as decreased level of consciousness. 1. Acute on chronic hypercarbic hypoxemic respiratory failure likely secondary to fluid overload and obesity hypoventilation, present on admission. Improving -Oxygen saturation is 96% by nasal cannula 1 L post hemodialysis -Likely her AMS was secondary to CO2 toxicity and it appears to have resolved. 2. Pulmonary edema, present on admission. Improved -Unlikely that the patient had pneumonia, her pro-calcitonin elevation can be explained by her renal failure -Chest x-ray is more consistent with fluid overload and then an infectious etiology -She is to undergo emergent dialysis today. 3. ESRD, chronic. Present on admission. Active -Followed by Dr. Jon outpatient -HD on Wed -Nephrology consulted. Recommendations per nephrology were appreciated 4. Elevated troponin of uncertain significance, present on admission. Improving -This is likely secondary to fluid overload and cardiac strain and poor renal clearance secondary to the ESRD -Repeat troponin trending down -Echo ordered 5. Possible urinary tract infection -Patient appears to have a chronic leukocytosis. Her procalcitonin elevation is mild and can be explained with poor renal clearance however her UA is shows packed WBCs -The patient does note some intermittent dysuria. -Urine sent for cultures, blood sent for cultures -Dr. Cortes ordered ceftazidime with dialysis. 6. Acute hyperkalemia. Present on admission. Resolved -Level is 4.4 after dialysis 7. Calciphylaxis, chronic. Present on admission. Active -Continue Renvela to 4 tabs TID with meals. -Avoided calcium-containing phosphate binders. -Wound attributed to calciphylaxis on the left buttock -Wound care consult requested 8. Type 2 diabetes mellitus, chronic. Present on admission -Continue home dose Lantus BID -High dose correctional Lispro 9. Hypothyroidism, chronic. Present on admission -Continue home dose levothyroxine 10. Asthma, chronic. Present on admission -Albuterol PRN, DuoNeb QID 11. GERD, chronic. Present on admission -Continue home dose PPI 12. Dyslipidemia, chronic. Present on admission -Continue home dose statin 13. Depression, chronic. Present on admission -Continue home dose Effexor 14. CAD with history of NSTEMI, chronic. Present on admission -Continue home dose metoprolol, statin, ASA 15. Hypertension, chronic. Present on admission -Continued home dose metoprolol, Lasix 16. Urinary incontinence, chronic. Present on admission -Continued home dose oxybutynin 17. Left ear pain, present on admission -Some fluid and air bubbles visualized by Dr. Pendleton, no sign of purulent infection or erythema -Possible otitis media will be covered by the antibiotics above, ceftazidime -Salt water gargling offered to patient for eustachian tube dysfunction CODE STATUS: FULL CODE Patient admitted under inpatient status with anticipated length of stay greater than 2 midnights due to severity of symptoms, complexity of plan and possibility for deterioration. Pain Evaluation: Adequate Pain Control VTE Prophylaxis: Sub-Q Heparin (Unfractionated) Resuscitation Status: CPR: Attempt Resuscitation Attending Statement The patient was seen and examined together with Resident/House-staff on 12/15/16 and I agree with the history, exam and plan as outlined in the note above. Favian Dykes DO December 15, 2016 16:30 Zhou Aviles December 18, 2016 16:56
--- NOTE | 2016-12-15 17:33 | DRSVH ---
[facility] [address] [place] [address] Echocardiogram Report Name: CALEB UGARTE LStudy Marvin e: 12/15/2016 Height: 67 in Hospital Exam Location: [facility] Weight: 310 lb Gender: Female BSA: 2.4 m2 : 1960 Age: 55 yrs BP: 148/73 mmHg Reason For Study: ?CHF Ordering Physician: HOSPITALIST ROSMERYerformed By: Priscilla Reyes Referring Physician: Geronimo Main Interpretation Summary There is moderate concentric left ventricular hypertrophy. The left ventricle is mildly dilated. The ejection fraction is estimated to be 40-45%. Global hypokinesis, moderate anteroseptal hypokinesis, There is mild mitral regurgitation. The aortic valve is mildly calcified. Leaflet mobility is moderately reduced. There is mild to moderate aortic stenosis. The aortic root is mildly dilated. Procedure: A two-dimensional transthoracic echocardiogram with color flow and Doppler was performed. Image quality is poor. A contrast injection of Definity was performed to improve assessment of LV function. Contrast was injected into an intravenous site in the right arm. A total of 5 cc of contrast was given. There is no prior echocardiogram noted for this patient. The patient was in sinus during the exam. The patient did well with the Definity Contrast. Left Ventricle: The left ventricle is mildly dilated. There is moderate concentric left ventricular hypertrophy. The LVOT diameter is 2.4 cm. The ejection fraction is estimated to be 40-45%. Global hypokinesis, moderate anteroseptal hypokinesis,. Spectral Doppler of the mitral valve is reversed, with an E/A wave ratio < 1.0. Right Ventricle: The right ventricle is at the upper limits of normal in size. The right ventricular systolic function is normal. Atria: The left atrium is moderately dilated. The right atrium is mildly dilated. There is no Doppler evidence for an atrial septal defect. Mitral Valve: There is moderate mitral annular calcification. The mitral valve leaflets appear mildly thickened, but open well. There is mild mitral regurgitation. Aortic Valve: The aortic valve is trileaflet. The aortic valve is mildly calcified. Leaflet mobility is moderately reduced. The calculated aortic valve area is 1.7 cm2. The peak aortic velocity is 3.0 m/sec. The aortic valve mean gradient is 21 mmHg. There is mild to moderate aortic stenosis. No aortic regurgitation is present. Tricuspid Valve: The tricuspid valve leaflets are thin and pliable. There is trace tricuspid regurgitation. Pulmonary artery pressures cannot be estimated because of the lack of a measurable TR jet velocity. Pulmonic Valve: The pulmonic valve is not well visualized. There is no pulmonic valvular regurgitation. Great Vessels: The aortic root is mildly dilated. The ascending aorta is mildly enlarged. The pulmonary artery is not well visualized, but is probably normal size. The IVC is dilated (diameter is greater than 2.1 cm) yet it collapses greater than 50% with a sniff. This suggests a right atrial pressure of 8 mm Hg. Pericardium/ Pleura There is no pericardial effusion. There is no pleural effusion. MMode/2D Measurements & Calculations LVIDd: 6.4 cm LA dimension: 4.8 cm RA long axis LVOT diam: 2.4 cm LVIDs: 4.7 cm AoV Opening FS: 26.2 % LA A2 area: 29.3 cm RA area EPSS: 1.9 cm LA A4 area: 25.8 cm Ao root diam IVSd: 1.4 cm LA length (vol) : 22.5 cm LVPWd: 1.4 cm RA vol asc Aorta Diam LA vol: 115.4 ml : 82.3 ml LA vol index RA Ao Arch Diam (Prox : 33.8 mm2 Trans): 2.6 cm IVC diam: 2.6 cm LV aly. diameter/BSA LV sys. diameter/BSA RVD2 (mid) (cm/m^2): 2.6 (cm/m^2): 1.9 : 4.0 cm Doppler Measurements & Calculations Ao V2 max MV E max shayan MV E/A: 0.93 PA V2 max : 297.3 cm/sec : 160.6 cm/sec Med Peak E' Shayan : 117.8 cm/sec Ao max PG MV A max shayan PA mean P.3 mmHg : 35.4 mmHg : 171.9 cm/sec E/E' med: 34.3 PA Accel Time Ao mean PG MV P1/2t Lat Peak E' Shayan : 0.09 sec : 20.7 mmHg : 60.5 msec LVOT Max Shayan E/E' lat: 28.5 : 110.6 cm/sec MR ERO: 0.08 cm2 E/e' average: 31.4 JUDY(I,D) Pulm A Revs Dur : 1.7 cm2 MV A dur: 0.13 sec sev ratio MV dec time MV P1/2t max shayan Ao V2 mean LV V1 max PG : 0.21 sec : 218.1 cm/sec MVA(P1/2t) Ao V2 VTI: 60.5 cm LV V1 VTI: 23.3 cm : 3.6 cm2 JUDY(V,D): 1.6 cm2 MR flow rate PA V2 mean JUDY indexed to BSA Pulm A Revs Dur - MV : 44.2 cm3/sec : 71.2 cm/sec (cm^2/m^2): 0.70 A Dur: -0.01 msec MR PISA radius Electronically signed by: Henry Oconnor on Reading Physician:12/15/2016 05:32 PM
[2016-12-15] MEDS: Insulin GLARgine 100 Unit/mL Syringe SUBQ SCH (22:31)
[2016-12-16] VITALS (10 sets, daily range): BP systolic 123–174; BP diastolic 57–85; PULSE 73–84; RESP 14–21; O2SAT 94–100
[2016-12-16] MEDS: Albuterol-Ipratropium 3 mL Inhalation Solution INHALATION SCH ×5 (01:25→16:30)
[2016-12-16 03:02] LABS: BASOPHILS % (AUTO) 0.2 % (0-3); EOSINOPHILS % (AUTO) 4.4 % (0-5); MONOCYTES % (AUTO) 8.5 % (4-12); Mean Corpuscular Volume 98.1 fL (81-100); NEUTROPHILS % (AUTO) 65.6 % (40-74); Platelet Count 223 bil/L (150-400)
[2016-12-16] MEDS: Insulin LISPRO 300 Unit/3 mL Inj SUBQ SCH ×4 (08:23→21:23)
[2016-12-16] MEDS: Heparin 5,000 Unit/mL Inj SUBQ SCH ×2 (08:24→21:23)
[2016-12-16] MEDS: Ascorbic Acid 500 mg Tablet PO SCH (08:26)
[2016-12-16] MEDS: MeTOProlol XL 25 mg ER24 Tablet PO SCH (08:27)
[2016-12-16] MEDS: Lidocaine Topical 5% Patch TOPICAL SCH (08:30)
--- NOTE | 2016-12-16 10:02 | PCM.DIMED ---
Discharge Instructions Date of Service December 16, 2016 Dates of Hospitalization December 14, 2016 at 12:54 Discharge Diagnosis Discharge Diagnosis Acute on chronic hypercarbic hypoxemic respiratory failure, Pulmonary edema, End stage renal disease on hemodialysis, UTI, Calciphylaxis, IDDM2 Medication Instructions Continue home medications as prescribed. No further antibiotics needed at this point after full course for UTI in the hospital. Test Results Laboratory Tests Test 12/16/16 02:50 White Blood Count 10.6th/mm3 (3.8-10.1) Red Blood Count 3.68mil/mm3 (3.90-5.20) Hemoglobin 10.3g/dL (12.0-15.6) Hematocrit 36.1% (35.0-46.0) Mean Corpuscular Volume 98.1fL (81-100) Mean Corpuscular Hemoglobin 28.0pg (27.0-35.0) Mean Corpuscular Hemoglobin Concent 28.5% (32.0-37.0) Red Cell Distribution Width 16.0% (12.3-15.4) Platelet Count 223bil/L (150-400) Neutrophils (%) (Auto) 65.6% (40-74) Lymphocytes (%) (Auto) 21.0% (14-46) Monocytes (%) (Auto) 8.5% (4-12) Eosinophils (%) (Auto) 4.4% (0-5) Basophils (%) (Auto) 0.2% (0-3) Sodium Level 141mEq/L (134-144) Potassium Level 4.8mEq/L (3.5-5.2) Chloride Level 97mEq/L (97-108) Carbon Dioxide Level 28mmol/L (18-29) Blood Urea Nitrogen 50mg/dL (6-24) Creatinine 5.80mg/dL (0.57-1.00) Estimat Glomerular Filtration Rate 11mL/min (>59) Glucose Level 170mg/dL (60-99) Calcium Level 9.2mg/dL (8.5-10.1) Total Bilirubin 0.3mg/dL (0.0-1.2) Aspartate Amino Transf (AST/SGOT) 7U/L (0-50) Alanine Aminotransferase (ALT/SGPT) 6U/L (0-32) Alkaline Phosphatase 88U/L (25-150) Troponin T 1.01ug/L (0.0-0.011) Total Protein 6.9g/dL (6.4-8.4) Albumin 3.6g/dL (3.4-5.0) Microbiology 12/14/16 Blood Culture - Preliminary, Resulted NO GROWTH AFTER 24 HOURS 12/15/16 MRSA (PCR) - Final, Complete 12/14/16 Urine Culture - Preliminary, Resulted Diet Diabetic Activity No restrictions (Be as active as possible, have a daily exercise routine) Call your provider Shortness of breath, Chest pain, Weakness (unilateral) Patient Instructions Please take all your medications as prescribed, especially your inhalers, get to dialysis on time, start a daily exercise routine at whatever level you can. Follow-up plan Return to SNF. Follow-up Provider: Geronimo Main DO Follow-up with PCP in: 1 week Favian Dykes DO December 16, 2016 10:02
--- NOTE | 2016-12-16 10:23 | PCM.DC.MED ---
Discharge Summary Date of Service December 17, 2016 Dates of Hospitalization Date of Hospital Admission December 14, 2016 at 12:54 Date of Discharge: December 17, 2016 Providers: Admitting Physician: Rinku Waldrop MD Primary Care Physician: Geronimo Main DO Attending Physician: Rinku Waldrop MD Diagnosis at Time of Discharge Diagnosis at Time of Discharge Acute on chronic hypercarbic hypoxemic respiratory failure, Pulmonary edema, End stage renal disease on hemodialysis, UTI, Calciphylaxis, IDDM2 Consultations Joel Cortes MD, Nephrology Procedures XRay, CTs & MRIs X-RAY CHEST ONE VIEW, PORTABLE IMPRESSION: 1. Mild cardiomegaly with associated vascular congestion is suspicious for developing pulmonary edema. 2. Right-sided central line catheter is positioned with the tip overlying the mid superior vena cava. 3. No pneumothorax. ECG 12 Lead Sinus rhythm, rate 81 Probable LVH No acute ischemia Cardiac Echo Impression 12/15/16 Interpretation Summary There is moderate concentric left ventricular hypertrophy. The left ventricle is mildly dilated. The ejection fraction is estimated to be 40-45%. Global hypokinesis, moderate anteroseptal hypokinesis, There is mild mitral regurgitation. The aortic valve is mildly calcified. Leaflet mobility is moderately reduced. There is mild to moderate aortic stenosis. The aortic root is mildly dilated. This is unchanged from previous study in March 2016 Invasive Procedures Central Line placement Brief History Sarah Jang is a 55-year-old woman with past medical history significant for ESRD on HD, calciphylaxis complicated by frequent infections, diabetes mellitus type II, insulin-dependent, coronary artery disease, and morbid obesity who presents to the [facility] ER from her snf facility secondary to complaints of difficulty breathing and congestion as well as decreased level of consciousness. Per the patient's report she was diagnosed with a pneumonia at her snf facility and was started on antibiotic the name of which she does not recall and had completed her course. Several days after she began coughing again with a clear productive sputum. She has not skipped any of her dialysis sessions and her last scheduled session was 2 days ago. The patient is a difficult historian and becomes very agitated and emotional upon any extensive questioning and is difficult to ascertain any linear thought. Patient denies any fever, chills, vomiting, diarrhea, abdominal pain, weakness, numbness. The etiology of her renal failure is due to long-standing, gated insulin requiring diabetes mellitus and hypertension. In the emergency department her vital signs were stable. A venous blood gas was obtained which showed a pH of 7.128 PaCO2 of 98 PaO2 of 36.6. She was thus placed on BiPAP. Chest x-ray showed pulmonary edema thus nephrology was consulted for emergent dialysis. The patient was also started on ceftazidime. As the patient's troponin was elevated in the ED physician elected to give him a loading dose of aspirin. Hospital Course Sarah Jang is a 55-year-old woman with past medical history significant for ESRD on HD, calciphylaxis complicated by frequent infections, diabetes mellitus type II, insulin-dependent, coronary artery disease, and morbid obesity who presents to the [facility] ER from her snf facility secondary to complaints of difficulty breathing and congestion as well as decreased level of consciousness. 1. Acute on chronic hypercarbic hypoxemic respiratory failure likely secondary to fluid overload and obesity hypoventilation, present on admission. Resolved -Oxygen saturation is 96% by nasal cannula 1 L post hemodialysis -Likely her AMS was secondary to CO2 toxicity and it appears to have resolved. 2. Pulmonary edema, present on admission. Improved -Unlikely that the patient had pneumonia, her pro-calcitonin elevation can be explained by her renal failure -Chest x-ray is more consistent with fluid overload and then an infectious etiology -She underwent emergent dialysis the day of admission. 3. ESRD, chronic. Present on admission. Active -Followed by Dr. Jon outpatient -HD on Wed, Wed -Nephrology consulted. Recommendations per nephrology were appreciated 4. Elevated troponin of uncertain significance, present on admission. Improving -This is likely secondary to fluid overload and cardiac strain and poor renal clearance secondary to the ESRD -Repeated troponins trending down -Echo as above, indicating global hypokinesis, EF 40-45%, LVH and mild/mod valvular abnormalities, unchanged from March 2016 5. Possible urinary tract infection -Patient appears to have a chronic leukocytosis. Her procalcitonin elevation is mild and can be explained with poor renal clearance however her UA is shows packed WBCs -The patient does note some intermittent dysuria. -Urine sent for cultures, blood sent for cultures -Dr. Cortes ordered ceftazidime with dialysis, continued during her hospital stay -Patient asymptomatic at discharge. 6. Acute hyperkalemia. Present on admission. Resolved -Level is 4.4 after dialysis 7. Calciphylaxis, chronic. Present on admission. Active -Continue Renvela to 4 tabs TID with meals. -Avoided calcium-containing phosphate binders. -Wound attributed to calciphylaxis on the left buttock -Wound care did treat and dress her lesion. 8. Type 2 diabetes mellitus, chronic. Present on admission -Continued home dose Lantus BID -High dose correctional Lispro 9. Hypothyroidism, chronic. Present on admission -Continued home dose levothyroxine 10. Asthma, chronic. Present on admission -Albuterol PRN, DuoNeb QID 11. GERD, chronic. Present on admission -Continued home dose PPI 12. Dyslipidemia, chronic. Present on admission -Continued home dose statin 13. Depression, chronic. Present on admission -Continued home dose Effexor 14. CAD with history of NSTEMI, chronic. Present on admission -Continued home dose metoprolol, statin, ASA 15. Hypertension, chronic. Present on admission -Continued home dose metoprolol, Lasix 16. Urinary incontinence, chronic. Present on admission -Continued home dose oxybutynin 17. Left ear pain, present on admission -Some fluid and air bubbles visualized, no sign of purulent infection or erythema -Possible otitis media will be covered by the antibiotics above, ceftazidime -Salt water gargling, flonase offered to patient for eustachian tube dysfunction CODE STATUS: FULL CODE Patient admitted under inpatient status with anticipated length of stay greater than 2 midnights due to severity of symptoms, complexity of plan and possibility for deterioration. Exam Vital Signs (Last) Date Time Temp Pulse Resp B/P Pulse Ox O2 Delivery O2 Flow Rate FiO2 12/16/16 08:53 82 14 100 Nasal Cannula 2.00 12/16/16 08:19 36.9 150/57 12/14/16 20:05 24 Exam General: No acute distress, well-developed, well-nourished, morbidly obese, appropriately interactive HEENT: Normocephalic, atraumatic. External ears without defect, ear canals normal, tympanic membrane shows evidence of fluid collection and air bubbles, no purulence or erythema. Pupils equal, round, and reactive to light. Anicteric sclerae, moist conjunctivae, and no lid lag. Neck: Supple with full range of motion. No jugular venous distension although difficult to ascertain due to body habitus. . Chest: Right chest with tunneled HD catheter without any sign of infection. Regular rate and rhythm with no murmurs, rubs, or gallops appreciated although difficult to ascertain due to body habitus. Pulmonary: Diffuse crackles although difficult to ascertain due to body habitus. Normal respiratory effort with no use of accessory muscles. Abdomen: Decreased bowel tones. Soft, nontender, distension. Obese. Extremities: Bilateral 3+ pitting lower extremity edema with stasis dermatitis changes. Skin: Normal temperature, turgor, and texture; no rash, ulcers, or subcutaneous nodules appreciated. Neurological: Cranial nerves grossly intact. Psychiatric: Alert and oriented to person, place, and time. Test 12/14/16 11:15 12/14/16 12:36 12/14/16 13:05 12/16/16 02:50 Prothrombin Time 9.7sec (8.1-12.5) Prothromb Time International Ratio 0.91ratio Lactic Acid Level 0.8mmol/L (0.4-2.0) Magnesium Level 2.6mg/dL (1.6-2.6) Pro-B-Type Natriuretic Peptide > 65940ir/mL (0-287) Procalcitonin 0.63ng/mL (0.00-0.08) Urine Color Straw (YELLOW) Urine Appearance Turbid (CLEAR,HAZY) Urine pH 7.0 (5.0-8.0) Urine Specific [place] 1.020 (1.003-1.035) Urine Protein 300mg/dL (NEG,TRACE) Urine Glucose (UA) 100mg/dL (NEGATIVE) Urine Ketones Negativemg/dL (NEGATIVE) Urine Occult Blood Large (NEGATIVE) Urine Nitrite Negative (NEGATIVE) Urine Bilirubin Negative (NEGATIVE) Urine Urobilinogen Normalmg/dL (NORMAL) Urine Leukocyte Esterase Large (NEGATIVE) Urine RBC 11-50/hpf (0-2) Urine WBC Packed/hpf (0-5) Urine Epithelial Cells Occasional/hpf (NONE-MOD) Urine Crystals None seen (NONE SEEN) Urine Bacteria Moderate/hpf (NONE-FEW) Urine Hyaline Casts None/lpf (NONE) Urine Granular Casts None seen (NONE SEEN) Urine Waxy Casts None seen (NONE SEEN) Urine Red Blood Cell Casts None seen (NONE SEEN) Urine White Blood Cell Casts None seen (NONE SEEN) Urine Mucus Present (None Seen) Urine Trichomonas None seen (NONE SEEN) Urine Yeast Few (NONE SEEN) Urinalysis Comment Transitional epi Urine Culture Reflexed Indicated Thyroid Stimulating Hormone (TSH) 3.290uIU/mL (0.450-4.500) White Blood Count 10.6th/mm3 (3.8-10.1) Red Blood Count 3.68mil/mm3 (3.90-5.20) Hemoglobin 10.3g/dL (12.0-15.6) Hematocrit 36.1% (35.0-46.0) Mean Corpuscular Volume 98.1fL (81-100) Mean Corpuscular Hemoglobin 28.0pg (27.0-35.0) Mean Corpuscular Hemoglobin Concent 28.5% (32.0-37.0) Red Cell Distribution Width 16.0% (12.3-15.4) Platelet Count 223bil/L (150-400) Neutrophils (%) (Auto) 65.6% (40-74) Lymphocytes (%) (Auto) 21.0% (14-46) Monocytes (%) (Auto) 8.5% (4-12) Eosinophils (%) (Auto) 4.4% (0-5) Basophils (%) (Auto) 0.2% (0-3) Sodium Level 141mEq/L (134-144) Potassium Level 4.8mEq/L (3.5-5.2) Chloride Level 97mEq/L (97-108) Carbon Dioxide Level 28mmol/L (18-29) Blood Urea Nitrogen 50mg/dL (6-24) Creatinine 5.80mg/dL (0.57-1.00) Estimat Glomerular Filtration Rate 11mL/min (>59) Glucose Level 170mg/dL (60-99) Calcium Level 9.2mg/dL (8.5-10.1) Total Bilirubin 0.3mg/dL (0.0-1.2) Aspartate Amino Transf (AST/SGOT) 7U/L (0-50) Alanine Aminotransferase (ALT/SGPT) 6U/L (0-32) Alkaline Phosphatase 88U/L (25-150) Troponin T 1.01ug/L (0.0-0.011) Total Protein 6.9g/dL (6.4-8.4) Albumin 3.6g/dL (3.4-5.0) Discharge Medications Discharge Medications Ascorbate Calcium (Vitamin C) 500 Mg Tablet 500 MG PO DAILY (Reported) Aspirin (Aspirin) 81 Mg Tablet 81 MG PO DAILY (Reported) Atorvastatin Calcium (Atorvastatin Calcium) 80 Mg Tablet 80 MG PO HS (Reported) Calcium Polycarbophil (Calcium Polycarbophil) 625 Mg Tablet 625 MG PO Evening ( Reported) Cholecalciferol (Vitamin D3) (Vitamin D3) 50,000 Unit Capsule 50,000 UNIT PO Every Wednesday (Reported) Docusate Sodium (Docusate Sodium) 250 Mg Capsule 250 MG PO BID (Reported) Furosemide (Furosemide) 80 Mg Tab 80 MG PO DAILY (Reported) Heparin Sodium,Porcine/Pf (Heparin Sod 5,000 Unit/ 0.5 ml) 5,000 Unit/0.5 Ml Vial 5,000 UNIT IJ BID Prescribed by: PROSPER VILLEGAS DO Insulin Glargine (Lantus U100 Insulin Vial) 100 Unit/Ml Vial 20 UNIT SUBQ BID ( Reported) Insulin Lispro (HumaLOG U100 Insulin Pen) 100 Unit/1 Ml Insuln.pen 10 UNIT SUBQ TIDAC (Reported) Insulin Lispro (HumaLOG U100 Insulin Pen) 100 Unit/1 Ml Insuln.pen 1 UNIT SUBQ TIDWM (Reported) Blood Sugar Lispro Correction <151 0 units 151-175 1 unit 176-200 2 units 201-225 3 units 226-250 4 units 251-275 5 units 276-300 6 units 301-325 7 units 326-350 8 units 351-375 9 units 376-400 10 units >400 12 units Check blood sugars before meals and at bedtime. Use correction factor only before meals. Ipratropium/Albuterol Sulfate (Iprat-Albut 0.5-3(2.5) mg/3 mL Inhalant Soln) 3 Ml Ampul.neb 3 ML IH Q4 (Reported) Levothyroxine (Levothyroxine) 100 Mcg Tablet 100 MCG PO DAILY (Reported) Lidocaine (Lidoderm) 700 Mg Adh..patch 1 PATCH TP DAILY (Reported) ON for 12hrs/ OFF for 12hrs Lubiprostone (Amitiza) 24 Mcg Capsule 24 MCG PO BID (Reported) Metoprolol Succinate ER (Metoprolol Succinate ER) 50 Mg Tab.er.24h 25 MG PO DAILY (Reported) Hold for SBP <80 or HR <60 Oxybutynin Chloride ER (Ditropan XL) 5 Mg Tab.er.24 10 MG PO DAILY (Reported) Polyethylene Glycol 3350 (Miralax) 17 Gm Powd.pack 17 GM PO HS (Reported) Pregabalin (Lyrica) 75 Mg Capsule 75 MG PO TID (Reported) Saccharomyces Boulardii (Florastor) 250 Mg Capsule 250 MG PO BID (Reported) Sennosides (Senna) 8.6 Mg Tablet 17.2 MG PO BID (Reported) Sevelamer Carbonate (Renvela) 800 Mg Tablet 3,200 MG PO TIDWM (Reported) Venlafaxine (Venlafaxine) 100 Mg Tablet 100 MG PO BIDWM (Reported) As needed Acetaminophen (Acetaminophen) 325 Mg Tablet 1-2 EACH PO Q4H PRN PRN For Pain ( Reported) Albuterol Sulfate (Ventolin HFA Inhaler) 200 Puff/18 Gm Inhaler 1-2 PUFF INH Q4 PRN PRN For Shortness of Breath (Reported) Bisacodyl (Dulcolax Rectal) 10 Mg Supp.rect 10 MG RC DAILY PRN PRN For Constipation (Reported) If no BMx12 shifts Hydromorphone (Hydromorphone) 2 Mg Tablet 2-6 MG PO Q4H PRN PRN Pain (Reported) Melatonin (Melatonin) 3 Mg Tablet.er 3 MG PO PRN Insomnia (Reported) Methocarbamol (Methocarbamol) 500 Mg Tablet 1,000 MG PO Q6H PRN PRN For Pain ( Reported) Na Phos,M-B/Na Phos,Di-Ba (Fleet Enema) 133 Ml Enema 133 ML RC PRN For Constipation (Reported) If No BM in 15 shifts or 5 days Ondansetron (Ondansetron) 4 Mg Tablet 4 MG PO TID PRN PRN For Nausea (Reported) Miscellaneous Medications ([Ergocalciferol 01103]) (Reported) Followup Plan Disposition: SNF Follow-up plan Return to SNF, follow-up with primary care who is also the significant director , Dr. Main. Discharge Diet: Diabetic Discharge Activity: No restrictions (Be as active as possible, have a daily exercise routine) Patient Instructions Please take all your medications as prescribed, especially your inhalers, get to dialysis on time, start a daily exercise routine at whatever level you can. Follow-up Provider: Geronimo Main DO Follow-up with PCP in: 1 week Time spent 35 min Attending Statement The patient was seen and examined together with Resident/House-staff on 12/17/16 and I agree with the history, exam and plan as outlined in the note above. copies to: Geronimo Main Alan C DO December 16, 2016 10:11 Zhou Aviles December 31, 2016 17:24
[2016-12-16] MEDS: DEXTROSE 5% IV SCH (13:17)
[2016-12-16] MEDS: CEFTAZIDIME IV SCH (13:17)
[2016-12-16] MEDS: Polyethylene Glycol (PEG) 17 Gm Powder PO SCH (14:50)
--- NOTE | 2016-12-16 17:15 | PCM.PNNEPH ---
Subjective Date of Service December 16, 2016 Subjective Patient continues to do well. She is more alert and denies any headache, chest pain, or shortness of breath. Labs morning showed sodium 141, potassium 4.8, chloride of 98, bicarbonate of 28, BUN and creatinine were 50 and 5.8 respectively. Exam Vital Signs Vital Sign - Last Date Time Temp Pulse Resp B/P Pulse Ox O2 Delivery O2 Flow Rate FiO2 12/16/16 12:16 36.8 78 20 153/82 98 Nasal Cannula 2.00 12/14/16 20:05 24 Intake and Output 12/15/16 12/15/16 12/16/16 Cumulative From/Thru 14:59 22:59 06:59 12/14/16 11:23 - 12/16/16 06:37 Intake Total 50 ml 300 ml 1285 ml Output Total 0 ml 4400 ml Balance 50 ml 300 ml -3115 ml Intake Oral 300 ml 650 ml IV Total 50 ml 635 ml Output Urine Total 0 ml 400 ml Ultrafiltrate 4000 ml # Bowel Movements 0 Exam Lungs are clear to auscultation. Heart is regular with mechanical soft systolic murmur. There is no evidence of any edema. Lab and Diagnostics Result Diagram: 12/16/16 0250 12/16/16 0250 X-Rays, CTs and MRIs X-RAY CHEST ONE VIEW, PORTABLE IMPRESSION: 1. Mild cardiomegaly with associated vascular congestion is suspicious for developing pulmonary edema. 2. Right-sided central line catheter is positioned with the tip overlying the mid superior vena cava. 3. No pneumothorax. 12-lead ECG Sinus rhythm, rate 81 Probable LVH No acute ischemia Cardiac Echo Impressions 12/15/16 Interpretation Summary There is moderate concentric left ventricular hypertrophy. The left ventricle is mildly dilated. The ejection fraction is estimated to be 40-45%. Global hypokinesis, moderate anteroseptal hypokinesis, There is mild mitral regurgitation. The aortic valve is mildly calcified. Leaflet mobility is moderately reduced. There is mild to moderate aortic stenosis. The aortic root is mildly dilated. Plan Impression Impression #1 end-stage renal disease dialysis dependent #2 acute respiratory failure secondary to pulmonary edema which is resolved. Recommendations #1 patient is to be dialyzed for 4 hours on a next dialyzer, 450 blood flow, 2 potassium bath, 1500 of heparin bolus and 500 now R and 4 L of fluid to be removed. Following her treatment she can be discharged. Joel Cortes DO December 16, 2016 17:15
--- NOTE | 2016-12-16 17:54 | PCM.PNMED ---
Subjective Date of Service December 16, 2016 Subjective Morbidly obese 55-year-old woman with past medical history of end-stage renal disease on hemodialysis, calciphylaxis complicated by frequent infections, insulin-dependent diabetes, coronary artery BiPAP emergent hemodialysis with improvement of symptoms, concerns for echocardiogram showing global hypo- hypokinesis capture in the hospital today Today she has requested bowel disimpaction, enemas, suppositories, even after having what was reported as a massive bowel movement on 12/15/2016. She reports that she does not feel out of breath, actually feels just about back to baseline, but since this last year of multiple hospital visits she has not been able to walk and feels her left knee has become quite unstable. She denies headache, cough, chest pain, nausea. Exam Vital Signs Vital Sign - Last Date Time Temp Pulse Resp B/P Pulse Ox O2 Delivery O2 Flow Rate FiO2 12/16/16 12:16 36.8 78 20 153/82 98 Nasal Cannula 2.00 12/14/16 20:05 24 Intake and Output 12/15/16 12/15/16 12/16/16 Cumulative From/Thru 15:00 23:00 07:00 12/14/16 11:23 - 12/16/16 06:37 Intake Total 50 ml 300 ml 1285 ml Output Total 0 ml 4400 ml Balance 50 ml 300 ml -3115 ml Intake Oral 300 ml 650 ml IV Total 50 ml 635 ml Output Urine Total 0 ml 400 ml Ultrafiltrate 4000 ml # Bowel Movements 0 Exam General: No acute distress, well-developed, well-nourished, morbidly obese, appropriately interactive HEENT: Normocephalic, atraumatic. External ears without defect. Pupils equal, round, and reactive to light. Anicteric sclerae, moist conjunctivae, and no lid lag. Neck: Supple with full range of motion. No jugular venous distension although difficult to ascertain due to body habitus. . Chest: Right chest with tunneled HD catheter without any sign of infection. Regular rate and rhythm with no murmurs, rubs, or gallops appreciated although difficult to ascertain due to body habitus. Pulmonary: Diffuse crackles although difficult to ascertain due to body habitus. Normal respiratory effort with no use of accessory muscles. Abdomen: Decreased bowel tones. Soft, nontender, distension. Obese. Extremities: Bilateral 3+ pitting lower extremity edema with stasis dermatitis changes. Skin: Normal temperature, turgor, and texture; no rash, ulcers, or subcutaneous nodules appreciated. Neurological: Cranial nerves grossly intact. Psychiatric: Alert and oriented to person, place, and time. IVs and Medications Medications Reviewed: Medications were reviewed in detail Lab and Diagnostics Result Diagram: 12/16/1624912/16/16 025 X-Rays, CTs and MRIs X-RAY CHEST ONE VIEW, PORTABLE IMPRESSION: 1. Mild cardiomegaly with associated vascular congestion is suspicious for developing pulmonary edema. 2. Right-sided central line catheter is positioned with the tip overlying the mid superior vena cava. 3. No pneumothorax. 12-lead ECG Sinus rhythm, rate 81 Probable LVH No acute ischemia Cardiac Echo Impressions 12/15/16 Interpretation Summary There is moderate concentric left ventricular hypertrophy. The left ventricle is mildly dilated. The ejection fraction is estimated to be 40-45%. Global left ventricular hypokinesis, moderate anteroseptal hypokinesis, There is mild mitral regurgitation. The aortic valve is mildly calcified. Leaflet mobility is moderately reduced. There is mild to moderate aortic stenosis. The aortic root is mildly dilated. Echocardiogram from March 2016 done at [facility] in [place]: Global left ventricular hypokinesis, ejection fraction 41% Assessment & Plan Sarah Jang is a 55-year-old woman with past medical history significant for ESRD on HD, calciphylaxis complicated by frequent infections, diabetes mellitus type II, insulin-dependent, coronary artery disease, and morbid obesity who presents to the [facility] ER from her [facility] facility secondary to complaints of difficulty breathing and congestion as well as decreased level of consciousness. 1. Acute on chronic hypercarbic hypoxemic respiratory failure likely secondary to fluid overload and obesity hypoventilation, present on admission. Resolved -Oxygen saturation is 96% by nasal cannula 1 L post hemodialysis -Likely her AMS was secondary to CO2 toxicity and it appears to have resolved. 2. Pulmonary edema, present on admission. Improved -Unlikely that the patient had pneumonia, her pro-calcitonin elevation can be explained by her renal failure -Chest x-ray is more consistent with fluid overload and then an infectious etiology -Dialysis schedule is not Wednesday. -There is a concern that this patient's respiratory difficulties were brought on by noncompliance with dialysis 3. ESRD, chronic. Present on admission. Active -Followed by Dr. Jon outpatient -HD on Wed, Wed, Wed -Nephrology consulted. Recommendations per nephrology were appreciated 4. Elevated troponin of uncertain significance, present on admission. Improving -This is likely secondary to fluid overload and cardiac strain and poor renal clearance secondary to the ESRD -Repeat troponin trending down -Echo as above, indicating global hypokinesis, EF 40-45%, LVH and mild/mod valvular abnormalities 5. Possible urinary tract infection -Patient appears to have a chronic leukocytosis. Her procalcitonin elevation is mild and can be explained with poor renal clearance however her UA is shows packed WBCs -The patient does note some intermittent dysuria. -Urine sent for cultures, blood sent for cultures -Dr. Cortes ordered ceftazidime with dialysis, continuing during this hospitalization. 6. Acute hyperkalemia. Present on admission. Resolved -Level is 4.4 after dialysis 7. Calciphylaxis, chronic. Present on admission. Active -Continue Renvela to 4 tabs TID with meals. -Avoided calcium-containing phosphate binders. -Wound attributed to calciphylaxis on the left buttock -Wound care consult requested 8. Type 2 diabetes mellitus, chronic. Present on admission -Continue home dose Lantus BID -High dose correctional Lispro 9. Hypothyroidism, chronic. Present on admission -Continue home dose levothyroxine 10. Asthma, chronic. Present on admission -Albuterol PRN, DuoNeb QID 11. GERD, chronic. Present on admission -Continue home dose PPI 12. Dyslipidemia, chronic. Present on admission -Continue home dose statin 13. Depression, chronic. Present on admission -Continue home dose Effexor 14. CAD with history of NSTEMI, chronic. Present on admission -Continue home dose metoprolol, statin, ASA 15. Hypertension, chronic. Present on admission -Continued home dose metoprolol, Lasix 16. Urinary incontinence, chronic. Present on admission -Continued home dose oxybutynin 17. Left ear pain, present on admission -Some fluid and air bubbles visualized with no sign of purulent infection or erythema -Possible otitis media will be covered by the antibiotics above, ceftazidime -Salt water gargling offered to patient for eustachian tube dysfunction -Fluticasone nasal spray trial on 12/16/16 18. Constipation, present on admission. Resolved -Massive bowel movement reported on 12/15/2016 -Despite this patient making repeated requests for enemas, disimpaction, suppositories -After discussion with the resident patient has agreed to stop requesting this kind of treatment on a daily basis. Had a discussion about the danger of fecal incontinence with that kind of invasive treatment for the discussion of the need for her to be eating properly and getting exercise in order to support possibility of regular bowel movements. CODE STATUS: FULL CODE Patient admitted under inpatient status with anticipated length of stay greater than 2 midnights due to severity of symptoms, complexity of plan and possibility for deterioration. Pain Evaluation: Adequate Pain Control VTE Prophylaxis: Sub-Q Heparin (Unfractionated) Resuscitation Status: CPR: Attempt Resuscitation Attending Statement The patient was seen and examined together with Resident/House-staff on 12/16/16 and I agree with the history, exam and plan as outlined in the note above. Favian Dykes DO December 16, 2016 17:54 Zhou Aviles December 31, 2016 17:08
[2016-12-16] MEDS ORDERED: Fluticasone 0.05% 15 Spray/2 Gm 16 Gm Nasal Spray NASAL ONE (18:05)
[2016-12-16] MEDS ORDERED: Albuterol-Ipratropium 3 mL Inhalation Solution INHALATION PRN (18:05)
[2016-12-16] MEDS: Insulin GLARgine 100 Unit/mL Syringe SUBQ SCH (21:22)
[2016-12-17 03:58] VITALS: PULSE 74
[2016-12-17 05:01] VITALS: BP 165/73; PULSE 74; RESP 20; O2SAT 96
[2016-12-17 05:21] LABS: Mean Corpuscular Hemoglobin 28.9 pg (27.0-35.0); Mean Corpuscular Volume 97.1 fL (81-100)
[2016-12-17 08:00] VITALS: PULSE 72
[2016-12-17] MEDS: Insulin LISPRO 300 Unit/3 mL Inj SUBQ SCH (08:00)
[2016-12-17 08:12] VITALS: BP 177/94; PULSE 76; O2SAT 94
[2016-12-17] MEDS: MeTOProlol XL 25 mg ER24 Tablet PO SCH (08:16)
[2016-12-17] MEDS: Ascorbic Acid 500 mg Tablet PO SCH (08:17)
[2016-12-17] MEDS: Heparin 5,000 Unit/mL Inj SUBQ SCH (08:17)
[2016-12-17] MEDS: Lidocaine Topical 5% Patch TOPICAL SCH (08:18)
[2016-12-17] MEDS: DEXTROSE 5% IV SCH (08:30)
[2016-12-17] MEDS: CEFTAZIDIME IV SCH (08:30)
[2016-12-17 09:01] VITALS: BP 163/98; PULSE 76
[2016-12-17] MEDS ORDERED: HEPA500016 IJ (12:03)
--- NOTE | 2016-12-17 15:35 | PCM.PNNEPH ---
Subjective Date of Service December 17, 2016 Subjective Patient continues to do well. She is scheduled for discharge after dialysis today. She denies any chest pain, shortness of breath, cough or wheezing. Exam Vital Signs Vital Sign - Last Date Time Temp Pulse Resp B/P Pulse Ox O2 Delivery O2 Flow Rate FiO2 12/17/16 09:01 76 12/17/16 08:12 36.9 177/94 94 Nasal Cannula 2.00 12/17/16 05:01 20 12/14/16 20:05 24 Intake and Output 12/16/16 12/16/16 12/17/16 Cumulative From/Thru 15:00 23:00 07:00 12/14/16 11:23 - 12/17/16 05:44 Intake Total 400 ml 1685 ml Output Total 4000 ml 0 ml 8400 ml Balance -4000 ml 400 ml -6715 ml Intake Oral 400 ml 1050 ml IV Total 635 ml Output Urine Total 0 ml 400 ml Ultrafiltrate 4000 ml 8000 ml # Bowel Movements 1 1 Exam Neck is supple without adenopathy, thyromegaly, or jugular venous distention. Lungs are clear to auscultation. Heart is regular rhythm with a soft systolic murmur. Abdomen soft without any tenderness rebound guarding masses or hepatosplenomegaly. Extremities do not show any evidence of any clubbing cyanosis or edema. Parking Manager is good Lab and Diagnostics Result Diagram: 12/17/16 0430 12/17/16 0430 X-Rays, CTs and MRIs X-RAY CHEST ONE VIEW, PORTABLE IMPRESSION: 1. Mild cardiomegaly with associated vascular congestion is suspicious for developing pulmonary edema. 2. Right-sided central line catheter is positioned with the tip overlying the mid superior vena cava. 3. No pneumothorax. 12-lead ECG Sinus rhythm, rate 81 Probable LVH No acute ischemia Cardiac Echo Impressions 12/15/16 Interpretation Summary There is moderate concentric left ventricular hypertrophy. The left ventricle is mildly dilated. The ejection fraction is estimated to be 40-45%. Global left ventricular hypokinesis, moderate anteroseptal hypokinesis, There is mild mitral regurgitation. The aortic valve is mildly calcified. Leaflet mobility is moderately reduced. There is mild to moderate aortic stenosis. The aortic root is mildly dilated. Echocardiogram from March 2016 done at [facility] in [place]: Global left ventricular hypokinesis, ejection fraction 41% Plan Impression Impression #1 acute pulmonary edema which is resolved #2 hypertension with hypertensive heart disease and hypertensive nephrosclerosis #3 end-stage renal disease. 4 calciphylaxis Recommendations #1 patient is to be dialyzed today for 4 hours on a max dialyzer , 450 blood flow, 2 potassium bath, 1500 units of heparin and 500 now and will try to take at least 4 L of fluid off. Following that she can be discharged. Joel Cortes DO December 17, 2016 15:35
== END 2016-12-17 13:10 | DRG 189 ==
LOC: EDBD 11:08 → SED 11:08 → EDUNIT# 11:08 → CCU 12:54 → PCC 12-15 11:15 → MOC 12-17 08:54
PROVIDERS: ADMIT Internal Medicine Infectious Disease; ATTEND Internal Medicine Infectious Disease
PROC: 4A033B1 Measurement of Arterial Pressure, Peripheral, Percutaneous Approach (ICD-10-PCS; principal; 2016-12-14)
PROC: 5A09357 Assistance with Respiratory Ventilation, Less than 24 Consecutive Hours, Continuous Positive Airway Pressure (ICD-10-PCS; 2016-12-14)
PROC: 5A1D60Z (ICD-10-PCS; 2016-12-14)
DX: J96.21 Acute and chronic respiratory failure with hypoxia (principal); J81.0 Acute pulmonary edema; N18.6 End stage renal disease; E66.2 Morbid (severe) obesity with alveolar hypoventilation; Z68.42 Body mass index [BMI] 45.0-49.9, adult; N39.0 Urinary tract infection, site not specified; I12.0 Hypertensive chronic kidney disease with stage 5 chronic kidney disease or end stage renal disease; J96.22 Acute and chronic respiratory failure with hypercapnia; E03.9 Hypothyroidism, unspecified; G62.9 Polyneuropathy, unspecified; I73.9 Peripheral vascular disease, unspecified; E87.5 Hyperkalemia; J45.909 Unspecified asthma, uncomplicated; I25.10 Atherosclerotic heart disease of native coronary artery without angina pectoris; E78.5 Hyperlipidemia, unspecified; F32.9 Major depressive disorder, single episode, unspecified; E11.22 Type 2 diabetes mellitus with diabetic chronic kidney disease; K21.9 Gastro-esophageal reflux disease without esophagitis; H66.92 Otitis media, unspecified, left ear; E83.59 Other disorders of calcium metabolism; R32 Unspecified urinary incontinence; K59.00 Constipation, unspecified; Z99.81 Dependence on supplemental oxygen; Z99.2 Dependence on renal dialysis; Z79.4 Long term (current) use of insulin; I25.2 Old myocardial infarction; Z79.82 Long term (current) use of aspirin

== ENCOUNTER 2017-02-24 12:21 | Inpatient (IN) | payer MEDICARE, MEDICAID ==
[~2017-02-24] VITALS: Ht 170.2 cm; Wt 135.7 kg
[2017-02-24] VITALS (7 sets, daily range): BP systolic 107–152; BP diastolic 60–82; PULSE 80–93; RESP 18–22; O2SAT 52–95
[~2017-02-24 12:21] MED LIST changes: +ASCO-294 PO; -ASCO500C6 PO; +CALC625T76 PO; +CHOL500050 PO; +HEPA500016 IJ; -HEPA500017 SUBQ; -HYDR2TAB27 PO; +LUBI24CA4 PO; -MAGN400O4 PO; -MELA1TAB11 PO; +MELA3TAB11 PO; -MICO45CR10 TOPICAL; -NALO12.5 PO; -PANT40TA3 PO; +[UNRECOGNIZED DRUG - CODE]
--- NOTE | 2017-02-24 12:41 | ED.REPORT ---
HPI-General Illness Date of Service Feb 24, 2017 ED Provider: Cyril Cintron MD The pt is a 56 y/o female w/ a hx of end stage renal disease and chronic hypercapnic respiratory failure presenting to the ED complaining of vomiting. The pt has had a lack of appetite for the last week and vomited w/ green mucus 5 days ago. Her SOB began today and her cough began last night. She also reports a mild fever of 99.3. Denies abdominal pain, blood in stools, or diarrhea. The pt was seeing her GI doctor (Dr. Rodriguez) for constipation and they thought she seemed somnolent and was complaining of vomiting and SOB so they wanted to send her here. She had a round of dialysis yesterday and has another session tomorrow. The pt is on 2L of O2 at home. She was hospitalized 2 months ago for respiratory failure. Nursing Notes Stated Complaint: VOMITING Chief Complaint: Vomiting Nursing Notes Reviewed: Yes Allergies: Coded Allergies: bupropion (Verified Allergy, Severe, night terrors, 12/14/16) ciprofloxacin (Verified Allergy, Severe, Nausea,Vomiting, 12/14/16) n/v for days afterwards codeine (Verified Allergy, Unknown, 12/14/16) Scheduled Ascorbate Calcium (Vitamin C) 500 Mg Tablet 500 MG PO DAILY Aspirin (Aspirin) 81 Mg Tablet 81 MG PO DAILY Atorvastatin Calcium (Atorvastatin Calcium) 80 Mg Tablet 80 MG PO HS Calcium Polycarbophil (Calcium Polycarbophil) 625 Mg Tablet 625 MG PO Evening Docusate Sodium (Docusate Sodium) 250 Mg Capsule 250 MG PO BID Furosemide (Furosemide) 80 Mg Tab 80 MG PO DAILY Heparin Sodium,Porcine/Pf (Heparin Sod 5,000 Unit/ 0.5 ml) 5,000 Unit/0.5 Ml Vial 5,000 UNIT IJ BID Insulin Glargine (Lantus U100 Insulin Vial) 100 Unit/Ml Vial 20 UNIT SUBQ BID Insulin Lispro (HumaLOG U100 Insulin Pen) 100 Unit/1 Ml Insuln.pen 10 UNIT SUBQ TIDAC Insulin Lispro (HumaLOG U100 Insulin Pen) 100 Unit/1 Ml Insuln.pen 1 UNIT SUBQ TIDWM Blood Sugar Lispro Correction <151 0 units 151-175 1 unit 176-200 2 units 201-225 3 units 226-250 4 units 251-275 5 units 276-300 6 units 301-325 7 units 326-350 8 units 351-375 9 units 376-400 10 units >400 12 units Check blood sugars before meals and at bedtime. Use correction factor only before meals. Levothyroxine (Levothyroxine) 100 Mcg Tablet 100 MCG PO DAILY Lidocaine (Lidoderm) 700 Mg Adh..patch 1 PATCH TP DAILY ON for 12hrs/ OFF for 12hrs Lisinopril (Lisinopril) 5 Mg Tablet 5 MG PO DAILY Naloxegol Oxalate (Movantik) 12.5 Mg Tablet 25 MG PO QAM Oxybutynin Chloride ER (Ditropan XL) 5 Mg Tab.er.24 10 MG PO DAILY Polyethylene Glycol 3350 (Miralax) 17 Gm Powd.pack 17 GM PO HS Pregabalin (Lyrica) 75 Mg Capsule 75 MG PO TID Saccharomyces Boulardii (Florastor) 250 Mg Capsule 250 MG PO BID Sennosides (Senna) 8.6 Mg Tablet 17.2 MG PO BID Sevelamer Carbonate (Renvela) 800 Mg Tablet 800 MG PO TIDWM Triamcinolone Acetonide (Nasacort) 10.8 Ml [place] 2 SPRAYS NS DAILY Venlafaxine (Venlafaxine) 100 Mg Tablet 100 MG PO BIDWM Scheduled PRN Acetaminophen (Acetaminophen) 325 Mg Tablet 1-2 EACH PO Q4H PRN PRN For Pain Albuterol Sulfate (Ventolin HFA Inhaler) 200 Puff/18 Gm Inhaler 1-2 PUFF INH Q4 PRN PRN For Shortness of Breath Bisacodyl (Dulcolax Rectal) 10 Mg Supp.rect 10 MG RC DAILY PRN PRN For Constipation If no BMx12 shifts Hydromorphone (Hydromorphone) 2 Mg Tablet 2-6 MG PO Q4H PRN PRN Pain Ipratropium/Albuterol Sulfate (Iprat-Albut 0.5-3(2.5) mg/3 mL Inhalant Soln) 3 Ml Ampul.neb 3 ML IH Q4 PRN PRN For Shortness of Breath Melatonin (Melatonin) 3 Mg Tablet.er 3 MG PO PRN Insomnia Methocarbamol (Methocarbamol) 500 Mg Tablet 1,000 MG PO Q6H PRN PRN For Pain Na Phos,M-B/Na Phos,Di-Ba (Fleet Enema) 133 Ml Enema 133 ML RC PRN For Constipation If No BM in 15 shifts or 5 days Ondansetron (Ondansetron) 4 Mg Tablet 4 MG PO TID PRN PRN For Nausea General Time Seen by MD: 12:39 Transferred From: [facility] Chief Complaint Vomiting Hx Obtained From: Patient Arrived By: Walk-in Sudden in Onset?: Yes Onset Occurred: 5 days ago Symptom Duration: Intermittent Recent Healthcare: Recent doctor visit, Recent hospitalization Similar Sx Previous: Yes Past Medical History Past Medical History Urinary tract infection, site unspecified Type 2 diabetes mellitus with long-term current use of insulin Infected prosthetic mesh of abdominal wall, sequela ESRD (end stage renal disease) on dialysis Mixed hyperlipidemia Weakness Medial epicondylitis, right elbow Vaginal bleeding Hoarseness Past Surgical History Sinus surgery Ovarian cyst removal Endometrial ablation Smoking History Unknown if Ever Smoker Social History Alcohol Use: Denies alcohol use Ambulatory Status Independent Review of Systems Lack of appetite; Full Review of Systems Constitutional: Reports: Fever Respiratory: Reports: Non-productive cough, Shortness of breath GI: Reports: Nausea, Vomiting, Denies: Abdominal pain, Bloody/tarry stool, Diarrhea Complete sys rev & neg: except as marked. Physical Exam Vital Signs Vital Signs Date Time Temp Pulse Resp B/P Pulse Ox O2 Delivery O2 Flow Rate FiO2 02/24/17 12:32 95 Nasal Cannula 4 02/24/17 12:24 36.4 89 18 107/60 52 Nasal Cannula Initial VS: Reviewed General/Constitutional: Well-developed, Well-nourished Head / Eyes: Atraumatic, Normocephalic, PERRL ENT: Mucous membranes moist, Conjunctiva normal, No scleral icterus Neck: Supple, Non-tender, Full range of motion Abdomen / GI: Soft, Non-tender Extremities: Vascular intact, Neuro intact, No swelling, No tenderness Skin: Warm, Dry, No cyanosis Neurologic: Alert, Oriented, Nonfocal Psychiatric: Mood/affect normal, Behavior normal, Normal thought content Respiratory / Chest: Breath sounds = bilat, No chest wall deformity Lungs coarse bilat Cardiovascular: Heart rate NL, Regular rhythm Systolic murmur L upper sternal border Diffuse bilat lower extremity edema Interpretation & Diagnostics Lab Results Interpretation Result Diagram: 02/25/17 0535 02/25/17 0535 Test 02/24/17 13:40 Nucleated Red Blood Cells 1/100 WBC (0-24) Prothrombin Time 10.0sec (8.1-12.5) Prothromb Time International Ratio 0.94ratio Lactic Acid Level 0.8mmol/L (0.4-2.0) Pro-B-Type Natriuretic Peptide > 56188yj/mL (0-287) Lipase 20U/L (13-60) ECG Interpretation ECG Interpretation: NSR Rate 88 Early repol LVH Unchanged from previous Time: 13:06 Interpreted by: ED physician X-Ray Chest Interpretation Chest Xray Interpretation: IMPRESSION: Enlarged cardiac mediastinal silhouette and perihilar vascularity most consistent with fluid imbalance. Dictated by: Rao Rowland M.D. on 02/24/2017 at 13:53 Approved by: Rao Rowland M.D. on 02/24/2017 at 13:54 View: Portable, 1 view Interpretation / Wet Read by: Interpret - Radiologist Re-Eval/Medical Decision Med Decision/Clinical Course 56-year-old female dialysis Wednesday end-stage renal disease, morbid obesity, chronic hypercapnic respiratory failure presenting with shortness of breath for several days. On arrival she was requiring 4 L to sat in the high 80s low 90s. She is on 2 L of oxygen at baseline. Chest x-ray shows no evidence of pneumonia. Her white blood cell count is elevated. She is anuric. Discussed with nephrology recommends dialysis today. Patient be admitted for dialysis. Discussed with hospitalist and we will initiate Rocephin and azithromycin to cover for possible ca-pna vs uti in setting leukocytosis and vomiting. Source of Hx: Old records Time of Eval: 14:33 Re-Evaluation/Progress Note: Pt rechecked. Informed pt of need for admission. Pt understands and agrees with plan for admission. All questions addressed. Consultation : Referral / Consult Name: Charlie Alvarez MD Consulted With: Hospitalist Call Returned at: 14:30 Direct Marketing Executive: Will see patient, Agrees with eval, Agrees with plan, Accepts admit Counseled Regarding: Diagnosis, Lab results, Need for admission Discharge & Departure Primary Impression: SOB (shortness of breath) Additional Impressions: Volume overload Hypervolemia type: unspecified Qualified Code: E87.70 - Fluid overload, unspecified Leukocytosis Leukocytosis type: unspecified Qualified Code: D72.829 - Elevated white blood cell count, unspecified Disposition: ADMITTED TO HOSPITAL Discharge Condition All VS Reviewed: Yes Condition: Stable Referrals: Geronimo Main DO (PCP) [place] Attestation Portions of this note were transcribed by Chandler Gonzalez. Dr. Saida Escoto personally performed the history, physical exam and medical decision-making; I reviewed and confirmed the accuracy of the information in the transcribed note. Signed by: Jim Rao, 02/24/17 and 1330. copies to: Geronimo Main Ben M MD Feb 24, 2017 12:41 Chandler Gonzalez Feb 24, 2017 13:20 Re-Evaluation/Progress Note: Pt rechecked. Informed pt of need for admission. Pt understands and agrees with plan for admission. All questions addressed. Consultation : Referral / Consult Name: Charlie Alvarez MD Consulted With: Hospitalist Call Returned at: 14:30 Direct Marketing Executive: Will see patient, Agrees with eval, Agrees with plan, Accepts admit Counseled Regarding: Diagnosis, Lab results, Need for admission Discharge & Departure Primary Impression: SOB (shortness of breath) Additional Impressions: Volume overload Hypervolemia type: unspecified Qualified Code: E87.70 - Fluid overload, unspecified Leukocytosis Leukocytosis type: unspecified Qualified Code: D72.829 - Elevated white blood cell count, unspecified Disposition: ADMITTED TO HOSPITAL Discharge Condition All VS Reviewed: Yes Condition: Stable Referrals: Geronimo Main DO (PCP) Jim Attestation Portions of this note were transcribed by Chandler Gonzalez. Dr. Saida Escoto personally performed the history, physical exam and medical decision-making; I reviewed and confirmed the accuracy of the information in the transcribed note. Signed by: Jim Rao, 02/24/17 and 1330. copies to: Geronimo Main Ben M MD Feb 24, 2017 12:41 Chandler Gonzalez Feb 24, 2017 13:20
--- NOTE | 2017-02-24 13:57 | DRSVH ---
PROCEDURE: X-RAY CHEST ONE VIEW, PORTABLE ([id number]) INDICATIONS: dyspnea TECHNIQUE: One view of the chest was acquired. COMPARISON: [facility], CR, XR CHEST 1VW (PORTABLE), 12/14/2016, 11:11. FINDINGS: Surgical changes and devices: Right-sided dialysis catheter with tips in the mid SVC. Lungs and pleura: No pleural effusions or pneumothorax. Right basilar atelectasis otherwise the lung s are clear. Mediastinum: Enlarged cardiac mediastinal silhouette. Prominent perihilar vascularity. Bones and chest wall: No suspicious bony lesions. Overlying soft tissues appear unremarkable. IMPRESSION: Enlarged cardiac mediastinal silhouette and perihilar vascularity most consistent with fl uid imbalance. Dictated by: Rao Rowland M.D. on 02/24/2017 at 13:53 Approved by: Rao Rowland M.D. on 02/24/2017 at 13:54
[2017-02-24 14:02] LABS: Mean Corpuscular Hemoglobin 29.8 pg (27.0-35.0); Mean Corpuscular Volume 103.3 fL (81-100); Platelet Count 329 bil/L (150-400)
[2017-02-24 14:10] LABS: INR 0.94 ratio
[2017-02-24 14:17] LABS: BASOPHILS % (AUTO) 0 % (0-3); EOSINOPHILS % (AUTO) 1 % (0-5); MONOCYTES % (AUTO) 9 % (4-12); NEUTROPHILS % (AUTO) 78 % (40-74)
[2017-02-24 14:39] LABS: TROPONIN T 0.105 ug/L (0.0-0.011)
[2017-02-24] MEDS ORDERED: cefTRIAXone Inj 2,000 MG in Dextrose 5% Minibag Plus 50 ML IV ONE (14:40)
[2017-02-24] MEDS ORDERED: Ondansetron 2 mg/mL 2 mL Inj IVPUSH PRN (14:40)
[2017-02-24] MEDS ORDERED: Alum-Mag Hydrox-Simeth 30 mL Suspension PO PRN ×2 (14:40→14:55)
[2017-02-24] MEDS ORDERED: Azithromycin Inj 500 MG in Dextrose 5% 250 ML IV ONE (14:40)
[2017-02-24] MEDS ORDERED: Polyethylene Glycol (PEG) 17 Gm Powder PO PRN (14:55)
[2017-02-24] MEDS ORDERED: NALO12.5 PO (14:57)
[2017-02-24] MEDS ORDERED: TRIA10.8 NS (15:01)
[2017-02-24] MEDS ORDERED: LISI-571 PO (15:06)
--- NOTE | 2017-02-24 17:01 | NUR ---
ADMIT Admitted a 56/M into room 3002 following report from Genevieve Ledezma RN. Pt on a stretcher, unable to assist with transfer to bed so slider board used with 4 person assist. Pt alert, forgetful, freq falling asleep mid-sentence. Pt states she is not sleeping, "just thinking about what to say next." Introduced to staff, bed/call light controls. Denies any pain. Pt's IV flushing easily. Placed on TELE, SR in the 80's. Pt on 2L via [place], this is her home 02 as well. Pt bedrest at baseline, uses get to get OOB. Bariatric bed ordered. Pt to be going to dialysis shortly, skin assessment done. RU chest has a dialysis port. L arm has a fistula, bruising to arm which pt states is s/p dialysis. Noted edema to bilat LE's. Per pt, she produces a small amount of urine 1-2x/week. Bed in lowest, locked position and call light in reach.
--- NOTE | 2017-02-24 18:01 | NUR ---
Off unit Pt off unit to dialysis Addendum: 02/24/17 at 1826 by URBAN KELLER RN Report given to BANDAR Marino
--- NOTE | 2017-02-24 18:10 | PCM.HPMED ---
Subjective Date of Service Feb 24, 2017 Primary Provider: Admitting Physician: Charlie Alvarez MD Primary Care Physician: Geronimo Main DO Attending Physician: Charlie Alvarez MD Admit Status: From the Emergency Department, Full Admit, Admit to Green Team, Remote Telemetry Chief Complaint: Progressively worsening dyspnea and increased oxygen requirement/1 month Generalized weakness/1 week Cough/2 days History of Present Illness: 56-year-old lady with past medical history of ESRD on HD for 1 yr and 4 months, type II diabetes, chronic constipation, depression, hypertension, history of CAD , obesity was sdnt from GI Dr Rodriguez's office when she gave history of worsening of her dyspnea and cough. patient states she had been having progressively worsening of her dyspnea for about a month with increasing oxygen requirement for abou a month. She states since her last hospitalization her breathing did not come back to baseline . She used to use O2 2 L only at night prior to last hospitalization but started to use 2 L day and night for about a month . She also notes she has been having generalized weakness and worsening of her dyspnea since 1 week ago. She also started to have produtive cough since 2 days . Today she went to Dr Rodriguez's office for a scheduled appointment for evaluation of her constipation. She was noted to dozz off and on further inquiry she reported her cough of 2 days, weakness and worsening dyspnea of 1 week which prompted referral to ED.cough id productive she states she never had sleep study and denies snoring ,BMI 47 she also states she had low grade fever at home. did not miss dialysis recently.last HD yesterday.denies sick contacts ED course : she was noted to desat to low 80's on her baseline 2L O2 and required 4 l to saturate in low 90's. EKG SR unchanged from prior. CXR fluid overload . proBNP > 70,000.wbc 14.,elevated procal at 2,trop elevated at 0.105 but not higher than prior levels. blood cx sent,ceftriaxone and azithromycin given,emergent HD arranged with nephrology and admission requested for acute on chronic hypoxic respiratory failure Review of Systems: A comprehensive review of systems performed, pertinent positives and negatives included in history of present illness Allergies Coded Allergies: bupropion (Verified Allergy, Severe, night terrors, 12/14/16) ciprofloxacin (Verified Allergy, Severe, Nausea,Vomiting, 12/14/16) n/v for days afterwards codeine (Verified Allergy, Unknown, 12/14/16) Home Medications Ascorbate Calcium (Vitamin C) 500 Mg Tablet 500 MG PO DAILY Aspirin (Aspirin) 81 Mg Tablet 81 MG PO DAILY Atorvastatin Calcium (Atorvastatin Calcium) 80 Mg Tablet 80 MG PO HS Calcium Polycarbophil (Calcium Polycarbophil) 625 Mg Tablet 625 MG PO Evening Cholecalciferol (Vitamin D3) (Vitamin D3) 50,000 Unit Capsule 50,000 UNIT PO Every Wednesday Docusate Sodium (Docusate Sodium) 250 Mg Capsule 250 MG PO BID Furosemide (Furosemide) 80 Mg Tab 80 MG PO DAILY Heparin Sodium,Porcine/Pf (Heparin Sod 5,000 Unit/ 0.5 ml) 5,000 Unit/0.5 Ml Vial 5,000 UNIT IJ BID Insulin Glargine (Lantus U100 Insulin Vial) 100 Unit/Ml Vial 20 UNIT SUBQ BID Insulin Lispro (HumaLOG U100 Insulin Pen) 100 Unit/1 Ml Insuln.pen 10 UNIT SUBQ TIDAC Insulin Lispro (HumaLOG U100 Insulin Pen) 100 Unit/1 Ml Insuln.pen 1 UNIT SUBQ TIDWM Blood Sugar Lispro Correction <151 0 units 151-175 1 unit 176-200 2 units 201-225 3 units 226-250 4 units 251-275 5 units 276-300 6 units 301-325 7 units 326-350 8 units 351-375 9 units 376-400 10 units >400 12 units Check blood sugars before meals and at bedtime. Use correction factor only before meals. Ipratropium/Albuterol Sulfate (Iprat-Albut 0.5-3(2.5) mg/3 mL Inhalant Soln) 3 Ml Ampul.neb 3 ML IH Q4 Levothyroxine (Levothyroxine) 100 Mcg Tablet 100 MCG PO DAILY Lidocaine (Lidoderm) 700 Mg Adh..patch 1 PATCH TP DAILY ON for 12hrs/ OFF for 12hrs Lubiprostone (Amitiza) 24 Mcg Capsule 24 MCG PO BID Metoprolol Succinate ER (Metoprolol Succinate ER) 50 Mg Tab.er.24h 25 MG PO DAILY Hold for SBP <80 or HR <60 Oxybutynin Chloride ER (Ditropan XL) 5 Mg Tab.er.24 10 MG PO DAILY Polyethylene Glycol 3350 (Miralax) 17 Gm Powd.pack 17 GM PO HS Pregabalin (Lyrica) 75 Mg Capsule 75 MG PO TID Saccharomyces Boulardii (Florastor) 250 Mg Capsule 250 MG PO BID Sennosides (Senna) 8.6 Mg Tablet 17.2 MG PO BID Sevelamer Carbonate (Renvela) 800 Mg Tablet 3,200 MG PO TIDWM Venlafaxine (Venlafaxine) 100 Mg Tablet 100 MG PO BIDWM Scheduled PRN Acetaminophen (Acetaminophen) 325 Mg Tablet 1-2 EACH PO Q4H PRN PRN For Pain Albuterol Sulfate (Ventolin HFA Inhaler) 200 Puff/18 Gm Inhaler 1-2 PUFF INH Q4 PRN PRN For Shortness of Breath Bisacodyl (Dulcolax Rectal) 10 Mg Supp.rect 10 MG RC DAILY PRN PRN For Constipation If no BMx12 shifts Hydromorphone (Hydromorphone) 2 Mg Tablet 2-6 MG PO Q4H PRN PRN Pain Melatonin (Melatonin) 3 Mg Tablet.er 3 MG PO PRN Insomnia Methocarbamol (Methocarbamol) 500 Mg Tablet 1,000 MG PO Q6H PRN PRN For Pain Na Phos,M-B/Na Phos,Di-Ba (Fleet Enema) 133 Ml Enema 133 ML RC PRN For Constipation If No BM in 15 shifts or 5 days Ondansetron (Ondansetron) 4 Mg Tablet 4 MG PO TID PRN PRN For Nausea PMH Urinary tract infection, site unspecified Type 2 diabetes mellitus with long-term current use of insulin Infected prosthetic mesh of abdominal wall, sequela ESRD (end stage renal disease) on dialysis Mixed hyperlipidemia Weakness Medial epicondylitis, right elbow Vaginal bleeding Hoarseness Surgical History Sinus surgery Ovarian cyst removal Endometrial ablation Family History reviewed and unremarkable Social History Hx Alcohol Use: No Hx Substance Use: No Hx Tobacco Use: No Smoking Status: Unknown if Ever Smoker Exam Vital Signs Vital Sign - Last Date Time Temp Pulse Resp B/P Pulse Ox O2 Delivery O2 Flow Rate FiO2 02/24/17 17:13 Supplement Oxygen 02/24/17 17:07 86 02/24/17 12:32 95 4 02/24/17 12:24 36.4 18 107/60 Exam Gen. patient is lying comfortably in hospital bed.morbidly obses HEENT: Head is normocephalic atraumatic, Pupils equal and reactive, extraocular movements intact, Lungs basal crackles bilaterally Heart regular rate and rhythm without murmurs gallops or rubs Abdomen soft nontender without hepatosplenomegaly Extremities pulses are present dorsalis pedis posterior tibialis and radial. tSkin is warm and dry there are no rashes, Psych alert and oriented to person place and time Neuro cranial nerves II through XII are grossly intact Lymph: There is no lymphadenopathy appreciated in the cervical supra infraclavicular regions : no noel Lab and Diagnostics Result Diagram: 02/24/17 1340 02/24/17 1340 X-Rays, CTs and MRIs PROCEDURE: X-RAY CHEST ONE VIEW, PORTABLE ([id number]) INDICATIONS: dyspnea TECHNIQUE: One view of the chest was acquired. COMPARISON: [facility], CR, XR CHEST 1VW (PORTABLE), 12/14/2016, 11: 11. FINDINGS: Surgical changes and devices: Right-sided dialysis catheter with tips in the mid SVC. Lungs and pleura: No pleural effusions or pneumothorax. Right basilar atelectasis otherwise the lungs are clear. Mediastinum: Enlarged cardiac mediastinal silhouette. Prominent perihilar vascularity. Bones and chest wall: No suspicious bony lesions. Overlying soft tissues appear unremarkable. IMPRESSION: Enlarged cardiac mediastinal silhouette and perihilar vascularity most consistent with fluid imbalance. Dictated by: Rao Rowland M.D. on 02/24/2017 at 13:53 12-lead ECG SR unchanged from prior Cardiac Echo Impressions ECHO December 2016 Interpretation Summary There is moderate concentric left ventricular hypertrophy. The left ventricle is mildly dilated. The ejection fraction is estimated to be 40-45%. Global hypokinesis, moderate anteroseptal hypokinesis, There is mild mitral regurgitation. The aortic valve is mildly calcified. Leaflet mobility is moderately reduced. There is mild to moderate aortic stenosis. The aortic root is mildly dilated. Assessment & Plan 56-year-old lady with past medical history of ESRD on HD for 1 yr and 4 months, type II diabetes, chronic constipation, depression, hypertension, history of CAD , obesity was sdnt from OL[facility] Rodriguez's office when she gave history of worsening of her dyspnea and cough. # acute on chronic hypoxic respiratory failure ,poa -due to fluid overload vs OHS vs CAP/HCAP vs others -EKG SR unchanged from prior. CXR fluid overload . proBNP > 70,000.prior Echo EF 40-45%.she will get emergent HD .trend troponin. -wbc 14.,elevated procal at 2,trop elevated at 0.105 but not higher than prior levels.ceftriaxone and azithromycin given in ED ,continue for now given higher wbc than baseline an elevated procal.will consider stopping tomorrow if no further evidence of infection,bcx pending,UA pending -patient eventually needs sleep study and PFT to assess for JEANETTE./OHS.will consider consulting pulm in am if no improvement after HD # ESRD on HD with fluid overload -emergent HD todat per nephrology # chronic systolic CHF -EF 40-45 -HD,home lasix ,BB ,ASA ,lisinopril -will not repeat echo unless trop trends up #. Type 2 diabetes mellitus, chronic. Present on admission -Continue home dose Lantus BID -High dose correctional Lispro #. Hypothyroidism, chronic. Present on admission -Continue home dose levothyroxine #. Asthma, chronic. Present on admission -Albuterol PRN, DuoNeb QID #. GERD, chronic. Present on admission -Continue home dose PPI #. Dyslipidemia, chronic. Present on admission -Continue home dose statin #. Depression, chronic. Present on admission -Continue home dose Effexor #. CAD with history of NSTEMI, chronic. Present on admission -Continue home dose metoprolol, statin, ASA #. Hypertension, chronic. Present on admission -Continued home dose lisinopril, Lasix #. Urinary incontinence, chronic. Present on admission -Continued home dose oxybutynin inpatient Full code ,confirmed with patient VTE Prophylaxis: Sub-Q Heparin (Unfractionated) Resuscitation Status: CPR: Attempt Resuscitation copies to: Geronimo Main Melaku MD Feb 24, 2017 18:10
--- NOTE | 2017-02-24 18:33 | CONS ---
[address] [address] CONSULTATION REPORT PATIENT: CALEB UGARTE : 1960 MR#: [id number] ADMIT: 02/24/2017 JOB ID: [id number] DATE OF SERVICE: 02/24/2017 NEPHROLOGY CONSULTATION: REQUESTING PHYSICIAN: Cyril Cintron MD REASON FOR CONSULTATION: Management of end-stage renal disease. CHIEF COMPLAINT: Shortness of breath. HISTORY OF PRESENT ILLNESS: This is a 56-year-old, lady with significant past medical history of end-stage renal disease on hemodialysis every Wednesday, , Wednesday, longstanding type 2 diabetes, hypertension, calciphylaxis, coronary artery disease, obesity, and lymphedema, who presented to the hospital with a complaint of shortness of breath, nausea, and vomiting. The patient reported that she has had a poor appetite and complaining of nausea and vomiting over the past five days. She also has had shortness of breath and productive cough that started one day prior to the admission. She has reported that she had a low-grade temperature with a temperature of 99.3. Today the patient was evaluated by the machinist supervisor outside for the chronic constipation. The patient appears to be very somnolent and short-winded. The patient was instructed to come to the emergency department for further investigation. She reported that she had hemodialysis yesterday and they had just started using her left AV fistula. She is complaining of some pain and bruises around the fistula site. The initial blood work showed a WBC of 14.1, procalcitonin of 2.04, BNP of 70,000. The chest x-ray showed perihilar vascularity consistent with fluid imbalance and increased cardiac silhouette. She is a patient of Dr. Jon and Dr. Chinchilla. She is dialyzed at the [facility] unit every Wednesday, , and Wednesday. During my visit the patient is very somnolent. She fell asleep during our conversation. PAST MEDICAL HISTORY: 1. End-stage renal disease on hemodialysis every Wednesday, , Wednesday. 2. Calciphylaxis. 3. Longstanding type 2 diabetes with renal manifestation. 4. Hypertension with hypertensive nephrosclerosis. 5. Morbid obesity. 6. Abdominal hernia repair with mesh complicated by infection and sepsis. 7. Lymphedema. 8. Coronary artery disease. 9. Hypertension. 10. Dyslipidemia. 11. Neurogenic bladder. 12. Hypoventilation syndrome. 13. History of ruptured ovarian cysts. PAST SURGICAL HISTORY: 1. Multiple failed attempts AV fistula. 2. Status post tunneled catheter placement. 3. Sinus surgery. 4. Endometrial ablation. 5. Tonsillectomy. 6. Abdominal hernia repair. FAMILY HISTORY: Mother with hypertension. Father with prostate cancer and Parkinson's. SOCIAL HISTORY: Denies current use of alcohol, tobacco, or illicit drugs. She is a [facility] resident. ALLERGIES: BUPROPION, CIPROFLOXACIN, CODEINE. MEDICATIONS: Ventolin, vitamin C, aspirin, atorvastatin, Dulcolax, furosemide, heparin subcu b.i.d., hydromorphone, insulin lispro, insulin glargine, levothyroxine, Lidoderm, lisinopril, melatonin, Fleet enema, Zosyn, oxybutynin, MiraLAX, gabapentin, senna, sevelamer carbonate, venlafaxine. PHYSICAL EXAMINATION: Vitals: Temperature 36.4, pulse 86, respiratory 18, blood pressure 107/60, O2 sat 95% on 4 L nasal cannula. General appearance: Obese. Responsive to painful and verbal stimuli. Somnolent. HEENT: Atraumatic. Moist mucous membranes. Mild pallor. Anicteric sclerae. No JVD. No lymphadenopathy. No thyroid enlargement. Heart: Regular rhythm. Normal S1, S2. Systolic murmur noted. Lungs: Fine crackles at the bases. No wheezing. Equal breath sounds bilaterally. No accessory muscle use. Abdomen: Soft, obese. Active bowel sounds. Nontender. Mild tenderness on the left lower quadrant given the bruised skin. Extremities: Chronic skin changes on the lower extremity. Positive for chronic lymphedema. LABORATORY: Sodium 139, potassium 4.4, chloride 96, bicarb 25, BUN 30, creatinine 4.74, glucose 117. Hemoglobin 10.9, WBC 14.1. ASSESSMENT: 1. Shortness of breath secondary to fluid overload. 2. Leukocytosis. Rule out healthcare associated pneumonia. Will also order an in and out catheterization to send the urine for urinalysis. 3. Altered mental status. Likely due to sepsis. 4. End-stage renal disease. On hemodialysis every Bro[place], , Wednesday. 5. Calciphylaxis. 6. Longstanding type 2 diabetes, insulin dependent. 7. History of hypertension. PLAN: Per renal standpoint, we would do short hemodialysis today for 3 hours ultrafiltration up to 2 L as tolerated. Will order an in and out cath, send a urine for urinalysis. The patient will receive another hemodialysis again tomorrow for 4 hours. We will use the tunneled cath instead of left AV fistula given the evidence of hematoma and bruises.
[2017-02-24] MEDS ORDERED: NALOXEGOL OXALATE 25 MG PO SCH (19:50)
[2017-02-24] MEDS: Insulin GLARgine 100 Unit/mL Syringe SUBQ SCH (20:30)
[2017-02-24] MEDS: Polyethylene Glycol (PEG) 17 Gm Powder PO SCH (21:00)
[2017-02-24] MEDS: Heparin 5,000 Unit/mL Inj SUBQ SCH ×2 (21:10→23:17)
--- NOTE | 2017-02-24 21:45 | NUR ---
Dialysis note: 3 hrs tx 2000 ml net UF Right catheter, dsg changed, no s/s of infection noted FATOUMATA fistula (+) thrill, area bruised and tender Blood cultures drawn Pls see DTR for VS details Qb 400 Heparin given O2 @ 2 L via NC on Tolerated tx, slept at intervals Catheter flushed, heparin dwelled and secured Stable condition at end of tx Report given to Tamara PORTILLO
[2017-02-24] MEDS: Insulin LISPRO Low-Dose Scale SUBQ SCH (22:00)
[2017-02-25] VITALS (9 sets, daily range): BP systolic 114–149; BP diastolic 61–84; PULSE 82–116; RESP 18–22; O2SAT 90–97
[2017-02-25 06:16] LABS: BASOPHILS % (AUTO) 0 % (0-3); EOSINOPHILS % (AUTO) 3 % (0-5); MONOCYTES % (AUTO) 8 % (4-12); Mean Corpuscular Hemoglobin 29.8 pg (27.0-35.0); Mean Corpuscular Volume 103.4 fL (81-100); NEUTROPHILS % (AUTO) 75 % (40-74); Platelet Count 290 bil/L (150-400)
--- NOTE | 2017-02-25 06:25 | NUR ---
pain/cough: pt c/o pain right elbow, Ice and prn medications. pt c/o nausea since arriving to back to floor from dialysis. pt medicated with prn zofran. pt refused some to her night time medications. will continue to monitor.
[2017-02-25 06:36] LABS: TROPONIN T 0.094 ug/L (0.0-0.011)
[2017-02-25] MEDS: Heparin 5,000 Unit/mL Inj SUBQ SCH ×3 (07:26→21:42)
[2017-02-25] MEDS: Insulin LISPRO Low-Dose Scale SUBQ SCH ×4 (07:30→21:45)
[2017-02-25] MEDS ORDERED: INSULIN LISPRO 10 UNIT SUBQ SCH (07:30)
[2017-02-25] MEDS: Ondansetron 2 mg/mL 2 mL Inj IVPUSH PRN (07:41)
[2017-02-25] MEDS ORDERED: INSULIN LISPRO 1 UNIT SUBQ SCH (08:00)
[2017-02-25] MEDS ORDERED: cefTRIAXone Inj 1,000 MG in Dextrose 5% Minibag Plus 50 ML IV SCH (08:00)
[2017-02-25] MEDS ORDERED: Vancomycin Dose per Pharmacist XX SCH (08:30)
[2017-02-25] MEDS: Ascorbic Acid 500 mg Tablet PO SCH (08:30)
[2017-02-25] MEDS ORDERED: Azithromycin Inj 500 MG in Dextrose 5% w/Vial Mate 250 ML IV SCH (08:30)
[2017-02-25] MEDS: Lidocaine Topical 5% Patch TOPICAL SCH (08:51)
[2017-02-25] MEDS: Insulin GLARgine 100 Unit/mL Syringe SUBQ SCH ×2 (08:51→21:57)
[2017-02-25] MEDS: Fluticasone 0.05% 15 Spray/2 Gm 16 Gm Nasal Spray NASAL SCH (08:51)
[2017-02-25] MEDS: Piperacillin-Tazo 3.375 Gm Inj 3.375 GM in Dextrose 5% Minibag Plus 50 ML IV SCH ×2 (08:52→21:42)
[2017-02-25] MEDS ORDERED: Vancomycin Inj 2,000 MG in 0.9% Sodium Chloride 500 ML IV ONE (09:15)
--- NOTE | 2017-02-25 12:40 | PCM.PNNEPH ---
Subjective Date of Service Feb 25, 2017 Subjective HD yesterday with UF 2L. (+) productive cough. more awake today. Exam Vital Signs Vital Sign - Last Date Time Temp Pulse Resp B/P Pulse Ox O2 Delivery O2 Flow Rate FiO2 02/25/17 12:28 36.5 89 114/67 91 Nasal Cannula 2.00 02/25/17 00:40 20 Intake and Output 02/24/17 02/24/17 02/25/17 Cumulative From/Thru 15:00 23:00 07:00 02/24/17 12:24 - 02/25/17 05:35 Intake Total 0 ml 50 ml 50 ml Output Total 2000 ml 0 ml 2000 ml Balance -2000 ml 50 ml -1950 ml Intake Oral 0 ml 50 ml 50 ml Output Urine Total 0 ml 0 ml 0 ml Ultrafiltrate 2000 ml 2000 ml # Bowel Movements 0 0 Exam General appearance: Obese. Responsive to painful and verbal stimuli. drowsy but more awake today. HEENT: Atraumatic. Moist mucous membranes. Mild pallor. Anicteric sclerae. No JVD. No lymphadenopathy. No thyroid enlargement. Heart: Regular rhythm. Normal S1, S2. Systolic murmur noted. Lungs: Fine crackles at the bases. No wheezing. Equal breath sounds bilaterally. No accessory muscle use. Abdomen: Soft, obese. Active bowel sounds. Nontender. Mild tenderness on the left lower quadrant given the bruised skin. Extremities: Chronic skin changes on the lower extremity. Positive for chronic lymphedema. Lab and Diagnostics Result Diagram: 02/25/17 0535 02/25/17 0535 X-Rays, CTs and MRIs PROCEDURE: X-RAY CHEST ONE VIEW, PORTABLE ([id number]) INDICATIONS: dyspnea TECHNIQUE: One view of the chest was acquired. COMPARISON: [facility], CR, XR CHEST 1VW (PORTABLE), 12/14/2016, 11: 11. FINDINGS: Surgical changes and devices: Right-sided dialysis catheter with tips in the mid SVC. Lungs and pleura: No pleural effusions or pneumothorax. Right basilar atelectasis otherwise the lungs are clear. Mediastinum: Enlarged cardiac mediastinal silhouette. Prominent perihilar vascularity. Bones and chest wall: No suspicious bony lesions. Overlying soft tissues appear unremarkable. IMPRESSION: Enlarged cardiac mediastinal silhouette and perihilar vascularity most consistent with fluid imbalance. Dictated by: Rao Rowland M.D. on 02/24/2017 at 13:53 12-lead ECG SR unchanged from prior Cardiac Echo Impressions ECHO December 2016 Interpretation Summary There is moderate concentric left ventricular hypertrophy. The left ventricle is mildly dilated. The ejection fraction is estimated to be 40-45%. Global hypokinesis, moderate anteroseptal hypokinesis, There is mild mitral regurgitation. The aortic valve is mildly calcified. Leaflet mobility is moderately reduced. There is mild to moderate aortic stenosis. The aortic root is mildly dilated. Plan Impression 1. Shortness of breath secondary to fluid overload. 2. Leukocytosis. Rule out healthcare associated pneumonia. 3. Altered mental status. Likely due to sepsis. 4. End-stage renal disease. On hemodialysis every Wednesday, , Wednesday. 5. H/o calciphylaxis. 6. Longstanding type 2 diabetes, insulin dependent. 7. History of hypertension. PLAN: HD again today 4hr via tunneled cath. Continue phosphate binders. Mandi De La Rosa MD Feb 25, 2017 12:40
--- NOTE | 2017-02-25 13:41 | PCM.PNMED ---
Subjective Date of Service Feb 25, 2017 Subjective continues to have dyspnea and cough .afebrile.bandemia noted Exam Vital Signs Vital Sign - Last Date Time Temp Pulse Resp B/P Pulse Ox O2 Delivery O2 Flow Rate FiO2 02/25/17 12:28 36.5 89 114/67 91 Nasal Cannula 2.00 02/25/17 00:40 20 Intake and Output 02/24/17 02/24/17 02/25/17 Cumulative From/Thru 15:00 23:00 07:00 02/24/17 12:24 - 02/25/17 05:35 Intake Total 0 ml 50 ml 50 ml Output Total 2000 ml 0 ml 2000 ml Balance -2000 ml 50 ml -1950 ml Intake Oral 0 ml 50 ml 50 ml Output Urine Total 0 ml 0 ml 0 ml Ultrafiltrate 2000 ml 2000 ml # Bowel Movements 0 0 Exam Gen. patient is lying comfortably in hospital bed.morbidly obses HEENT: Head is normocephalic atraumatic, Pupils equal and reactive, extraocular movements intact, Lungs basal crackles bilaterally Heart regular rate and rhythm without murmurs gallops or rubs Abdomen soft nontender without hepatosplenomegaly Extremities pulses are present dorsalis pedis posterior tibialis and radial. Skin is warm and dry there are no rashes, Psych alert and oriented to person place and time Neuro cranial nerves II through XII are grossly intact Lymph: There is no lymphadenopathy appreciated in the cervical supra infraclavicular regions : no noel IVs and Medications Medications Reviewed: Medications were reviewed in detail Lab and Diagnostics Result Diagram: 02/25/17 0535 02/25/17 0535 X-Rays, CTs and MRIs PROCEDURE: X-RAY CHEST ONE VIEW, PORTABLE ([id number]) INDICATIONS: dyspnea TECHNIQUE: One view of the chest was acquired. COMPARISON: [facility], CR, XR CHEST 1VW (PORTABLE), 12/14/2016, 11: 11. FINDINGS: Surgical changes and devices: Right-sided dialysis catheter with tips in the mid SVC. Lungs and pleura: No pleural effusions or pneumothorax. Right basilar atelectasis otherwise the lungs are clear. Mediastinum: Enlarged cardiac mediastinal silhouette. Prominent perihilar vascularity. Bones and chest wall: No suspicious bony lesions. Overlying soft tissues appear unremarkable. IMPRESSION: Enlarged cardiac mediastinal silhouette and perihilar vascularity most consistent with fluid imbalance. Dictated by: Rao Rowland M.D. on 02/24/2017 at 13:53 12-lead ECG SR unchanged from prior Cardiac Echo Impressions ECHO December 2016 Interpretation Summary There is moderate concentric left ventricular hypertrophy. The left ventricle is mildly dilated. The ejection fraction is estimated to be 40-45%. Global hypokinesis, moderate anteroseptal hypokinesis, There is mild mitral regurgitation. The aortic valve is mildly calcified. Leaflet mobility is moderately reduced. There is mild to moderate aortic stenosis. The aortic root is mildly dilated. Assessment & Plan 56-year-old lady with past medical history of ESRD on HD for 1 yr and 4 months, type II diabetes, chronic constipation, depression, hypertension, history of CAD , obesity was sdnt from GI Dr Rodriguez's office when she gave history of worsening of her dyspnea and cough. # acute on chronic hypoxic respiratory failure ,poa -due to fluid overload vs OHS vs CAP/HCAP vs others -EKG SR unchanged from prior. CXR fluid overload . proBNP > 70,000.prior Echo EF 40-45%.she will get emergent HD .trend troponin. -wbc 14.,elevated procal at 2,trop elevated at 0.105 but not higher than prior levels.ceftriaxone and azithromycin given in ED ,continue for now given higher wbc than baseline an elevated procal.bandemia noted, switched to zosyn and vancomycin to cover HCAP -patient eventually needs sleep study and PFT to assess for JEANETTE./OHS.will consider consulting pulm if no improvement # ESRD on HD with fluid overload - HD per nephrology # chronic systolic CHF -EF 40-45 -HD,home lasix ,BB ,ASA ,lisinopril -will not repeat echo unless trop trends up #. Type 2 diabetes mellitus, chronic. Present on admission -Continue home dose Lantus BID -High dose correctional Lispro #. Hypothyroidism, chronic. Present on admission -Continue home dose levothyroxine #. Asthma, chronic. Present on admission -Albuterol PRN, DuoNeb QID #. GERD, chronic. Present on admission -Continue home dose PPI #. Dyslipidemia, chronic. Present on admission -Continue home dose statin #. Depression, chronic. Present on admission -Continue home dose Effexor #. CAD with history of NSTEMI, chronic. Present on admission -Continue home dose metoprolol, statin, ASA #. Hypertension, chronic. Present on admission -Continued home dose lisinopril, Lasix #. Urinary incontinence, chronic. Present on admission -Continued home dose oxybutynin inpatient Full code ,confirmed with patient disposition:2-3 days VTE Prophylaxis: Sub-Q Heparin (Unfractionated) Resuscitation Status: CPR: Attempt Resuscitation Charlie Alvarez MD Feb 25, 2017 13:41
--- NOTE | 2017-02-25 13:45 | NUR ---
Off unit Pt off unit to dialysis, report given to Jamila Alvarenga RN. inorganic chemical technician notified as well.
--- NOTE | 2017-02-25 14:19 | NUR ---
pt [place] [facility] [place] at 1340 via bed report received from TRENT RN [place] [place] tele technician support engineer informed of temp room location laboratory helper at bedside; will cont to monitor
--- NOTE | 2017-02-25 14:34 | PCM.CONPHA ---
Subjective Date of Service: Feb 25, 2017 Vancomycin dosing Reason for Pharmacy Consult: Vancomycin Dosing Assessment/Plan Assessment/Plan Patient is a 56 y.o. female receiving vancomycin for pneumonia. Concurrent abx include: zosyn. WBC count is 15.8 and the patient is afebrile. Patient is 135 kg, 67 inches tall with ESRD and on HD. Based on patient parameters vancomycin will be loaded with 2000mg then a daily random level will be drawn daily. Patient will be redosed for a random level < 20. Pharmacy will follow daily and adjust as appropriate. Thank you for the consult in the care of this patient. P PharmD Ovidio Alfonso Feb 25, 2017 14:34
--- NOTE | 2017-02-25 18:30 | NUR ---
Dialysis note: 4 hrs tx 3000 ml net UF Right catheter, dsg dry and intact FATOUMATA fistula (+) thrill, area bruised and tender Pls see DTR for VS details Qb 400-500 Heparin given O2 @ 2 L via NC on Tolerated tx, slept at intervals Catheter flushed, heparin dwelled and secured Stable condition at end of tx Report given to Jamila PORTILLO
--- NOTE | 2017-02-25 18:39 | NUR ---
Back on unit Pt back on unit, report rec'd from Jamila Alvarenga RN.
--- NOTE | 2017-02-25 18:41 | NUR ---
pt returned to [facility] post DIALYSIS at ~1835 Bedside report provided back to [employer] billing analyst injection molding technician informed of return to unit see supervising airplane pilot note, intervention, and/or graphic flow for treatment details
[2017-02-25] MEDS: Albuterol-Ipratropium 3 mL Inhalation Solution INHALATION PRN (21:01)
[2017-02-25] MEDS: Polyethylene Glycol (PEG) 17 Gm Powder PO SCH (21:42)
[2017-02-26] VITALS (7 sets, daily range): BP systolic 111–113; BP diastolic 61–74; PULSE 75–84; RESP 16–20; O2SAT 95–99
[2017-02-26] MEDS: Ondansetron 2 mg/mL 2 mL Inj IVPUSH PRN ×2 (00:56→21:21)
[2017-02-26] MEDS: Albuterol-Ipratropium 3 mL Inhalation Solution INHALATION PRN ×3 (01:35→18:07)
[2017-02-26] MEDS ORDERED: LORazepam 1 mg Tablet PO ONE (01:40)
--- NOTE | 2017-02-26 06:17 | NUR ---
Anxiety Pt very anxious around 0130, "feels terrible", she requested change room due to claustrophobia, otherwise she will sitting up in chair. Charge nurse Molly Dangelo informed, currently no room with ceiling lift available due to pt obesity and room would be available today per charge nurse. Both primary RN and Taqueria Armendariz spent about half hour explaining above condition, and trying to calm her down, she agreed leave all doors and window blinds open, bed in chair position and facing window in hallway, RT called and NEB administered due to pt SOB. Pt denied pain. Nausea settled down after Zofran given around 0100, Lorazepam ordered and administered, pt fallen asleep afterwards.
[2017-02-26 07:11] LABS: BASOPHILS % (AUTO) 0.2 % (0-3); EOSINOPHILS % (AUTO) 1.4 % (0-5); Mean Corpuscular Hemoglobin 29.3 pg (27.0-35.0); Mean Corpuscular Volume 105.2 fL (81-100); NEUTROPHILS % (AUTO) 72.9 % (40-74); Platelet Count 290 bil/L (150-400)
[2017-02-26] MEDS: Piperacillin-Tazo 3.375 Gm Inj 3.375 GM in Dextrose 5% Minibag Plus 50 ML IV SCH ×2 (08:02→21:16)
[2017-02-26] MEDS: Insulin LISPRO Low-Dose Scale SUBQ SCH ×4 (08:03→21:55)
[2017-02-26] MEDS: Insulin GLARgine 100 Unit/mL Syringe SUBQ SCH ×2 (08:03→21:21)
[2017-02-26] MEDS: Ascorbic Acid 500 mg Tablet PO SCH (08:04)
[2017-02-26] MEDS: Heparin 5,000 Unit/mL Inj SUBQ SCH ×2 (08:04→21:15)
[2017-02-26] MEDS: Fluticasone 0.05% 15 Spray/2 Gm 16 Gm Nasal Spray NASAL SCH (08:06)
[2017-02-26] MEDS: Lidocaine Topical 5% Patch TOPICAL SCH (08:30)
[2017-02-26] MEDS ORDERED: LORazepam 0.5 mg Tablet PO PRN (12:30)
--- NOTE | 2017-02-26 12:34 | PCM.PNMED ---
Subjective Date of Service Feb 26, 2017 Subjective cough and breathing improving. Afebrile. Exam Vital Signs Vital Sign - Last Date Time Temp Pulse Resp B/P Pulse Ox O2 Delivery O2 Flow Rate FiO2 02/26/17 08:30 Supplement Oxygen 02/26/17 06:50 35.8 75 20 111/74 98 2.00 Intake and Output 02/25/17 02/25/17 02/26/17 Cumulative From/Thru 14:59 22:59 06:59 02/24/17 12:24 - 02/26/17 06:50 Intake Total 1218 ml 578 ml 1846 ml Output Total 3000 ml 0 ml 0 ml 5000 ml Balance -3000 ml 1218 ml 578 ml -3154 ml Intake Oral 400 ml 525 ml 975 ml IV Total 818 ml 53 ml 871 ml Output Urine Total 0 ml 0 ml 0 ml Ultrafiltrate 3000 ml 5000 ml # Bowel Movements 1 1 Exam Gen. patient is lying comfortably in hospital bed.morbidly obses HEENT: Head is normocephalic atraumatic, Pupils equal and reactive, extraocular movements intact, Lungs basal crackles bilaterally Heart regular rate and rhythm without murmurs gallops or rubs Abdomen soft nontender without hepatosplenomegaly Extremities pulses are present dorsalis pedis posterior tibialis and radial. Skin is warm and dry there are no rashes, Psych alert and oriented to person place and time Neuro cranial nerves II through XII are grossly intact Lymph: There is no lymphadenopathy appreciated in the cervical supra infraclavicular regions : no noel IVs and Medications Medications Reviewed: Medications were reviewed in detail Lab and Diagnostics Result Diagram: 02/26/1751302/26/17513 X-Rays, CTs and MRIs PROCEDURE: X-RAY CHEST ONE VIEW, PORTABLE ([id number]) INDICATIONS: dyspnea TECHNIQUE: One view of the chest was acquired. COMPARISON: [facility], CR, XR CHEST 1VW (PORTABLE), 12/14/2016, 11: 11. FINDINGS: Surgical changes and devices: Right-sided dialysis catheter with tips in the mid SVC. Lungs and pleura: No pleural effusions or pneumothorax. Right basilar atelectasis otherwise the lungs are clear. Mediastinum: Enlarged cardiac mediastinal silhouette. Prominent perihilar vascularity. Bones and chest wall: No suspicious bony lesions. Overlying soft tissues appear unremarkable. IMPRESSION: Enlarged cardiac mediastinal silhouette and perihilar vascularity most consistent with fluid imbalance. Dictated by: Rao Rowland M.D. on 02/24/2017 at 13:53 12-lead ECG SR unchanged from prior Cardiac Echo Impressions ECHO December 2016 Interpretation Summary There is moderate concentric left ventricular hypertrophy. The left ventricle is mildly dilated. The ejection fraction is estimated to be 40-45%. Global hypokinesis, moderate anteroseptal hypokinesis, There is mild mitral regurgitation. The aortic valve is mildly calcified. Leaflet mobility is moderately reduced. There is mild to moderate aortic stenosis. The aortic root is mildly dilated. Assessment & Plan 56-year-old lady with past medical history of ESRD on HD for 1 yr and 4 months, type II diabetes, chronic constipation, depression, hypertension, history of CAD , obesity was sdnt from GI Dr Rodriguez's office when she gave history of worsening of her dyspnea and cough. # acute on chronic hypoxic respiratory failure ,poa -due to fluid overload and HCAP -EKG SR unchanged from prior. CXR fluid overload . proBNP > 70,000.prior Echo EF 40-45%.received emergent HD and had some improvement -wbc 14.,elevated procal at 2,trop elevated at 0.105 but not higher than prior levels.ceftriaxone and azithromycin given in ED , switched to zosyn and vancomycin to cover HCAP on 02/25.MRSA nares negative. Blood culture negative. Discontinue vancomycin -Patient dozes off in to naps while having conversations. Very likely she has JEANETTE/OHS. Patient eventually needs sleep study and PFT to assess for JEANETTE./ OHS.will consider consulting pulm if no improvement # ESRD on HD with fluid overload - HD per nephrology #Acute on chronic systolic CHF -EF 40-45 -HD,home lasix ,BB ,ASA ,lisinopril -will not repeat echo unless trop trends up #. Type 2 diabetes mellitus, chronic. Present on admission -Continue home dose Lantus BID -High dose correctional Lispro #. Hypothyroidism, chronic. Present on admission -Continue home dose levothyroxine #. Asthma, chronic. Present on admission -Albuterol PRN, DuoNeb QID #. GERD, chronic. Present on admission -Continue home dose PPI #. Dyslipidemia, chronic. Present on admission -Continue home dose statin #. Depression, chronic. Present on admission -Continue home dose Effexor #. CAD with history of NSTEMI, chronic. Present on admission -Continue home dose metoprolol, statin, ASA #. Hypertension, chronic. Present on admission -Continued home dose lisinopril, Lasix #. Urinary incontinence, chronic. Present on admission -Continued home dose oxybutynin inpatient Full code ,confirmed with patient disposition:1-2 days VTE Prophylaxis: Sub-Q Heparin (Unfractionated) VTE Mechanical Devices: Intermittant Pneumatic CD Resuscitation Status: CPR: Attempt Resuscitation Charlie Alvarez MD Feb 26, 2017 12:34
--- NOTE | 2017-02-26 13:04 | NUR ---
Mentation/Activity: Pt sleeping unless stimulated, falls asleep mid sentence. When awake, pt c/o severe anxiety, is very needy, "I need that anxiety medication, and I need it all the time, so that my anxiety doesn't go up and down. I can't brush my own hair." Pt refuses to change position in bed, refuses to attempt any self care activities. Reminded pt of the importance of repositioning in bed, pt states "I'll move later." When not being stimulated by staff, pt is sleeping. When awake, pt continues to refuse to change position, requests being moved to a different room, no rooms available at this time. Currently, pt sleeping comfortably.
--- NOTE | 2017-02-26 16:12 | NUR ---
Social Work: Initial Assessment / Multidisciplinary Rounds Data: Pt is a 56 y/o female admitted for SOB. Pt's PCP is Dr Main, pt's insurance is Medicare with [facility] supp. EMR reviewed. Pt discussed in rounds. MD states pt likely ready for d/c tomorrow. CRANE MANAGER met with pt at bedside, role explained. Pt is a LTC pt a [facility] and has been there since January 2017. Pt states she uses a wheel chair and walker at baseline, and a lift, but does not have a lift at home. Pt has hx of and SNF, no LTC or VA benefits. [facility] left a voice mail with CRANE MANAGER that they are able to take pt back when she is ready. Pt may require BLS transportation. CRANE MANAGER will continue to follow. Assessment: LTC pt at [facility]. Plan: Pt will return to [facility] for LTC SNF, likely tomorrow per MD, possibly needing BLS transportation. CRANE MANAGER will continue to follow. PAULA Contreras Addendum: 02/26/17 at 1616 by GIO KRISHNAN Amended: Links added.
--- NOTE | 2017-02-26 17:34 | NUR ---
spiritual care: routine pt eager to converse, reflect and process recent personal and medical events. Pt spoke of last year or so of medical/half-way facility experiences as well as burden of grief related to sister's , new diagnosis for father and interpersonal relationships. Pt insightful (using cognitive behavior therapy tools) about her own limits, hopes and boundaries. Pt Alevism; no jennifer specific needs for her hospitalization. Pt able to make needs known. pt agreeable for referral phone call to internship coordinator Emmett To at [facility] to follow up conversation and pastoral care plan. scripture and blessing
[2017-02-26] MEDS: Polyethylene Glycol (PEG) 17 Gm Powder PO SCH (21:15)
[2017-02-27 03:35] VITALS: BP 103/56; PULSE 76; RESP 15; O2SAT 97
--- NOTE | 2017-02-27 06:12 | NUR ---
Uneventful Night Pt appears having a good night, c/o right ear pain at late evening r/o "sinusitis" per pt, no drainage or redness noted,Dilaudid po given per pt requests, pain resolved. Otherwise, no complains, sleeping most of night, refuses turn despite educated of risk of PU. VSS, afebrile.
[2017-02-27] MEDS: Insulin LISPRO Low-Dose Scale SUBQ SCH ×2 (07:30→12:29)
[2017-02-27] MEDS: Lidocaine Topical 5% Patch TOPICAL SCH (08:30)
[2017-02-27] MEDS ORDERED: 0.9% Sodium Chloride 250 ML ONE (09:48)
[2017-02-27 09:57] VITALS: BP 117/75; PULSE 74; RESP 22; O2SAT 95
[2017-02-27] MEDS: Heparin 5,000 Unit/mL Inj SUBQ SCH (10:02)
[2017-02-27] MEDS: Piperacillin-Tazo 3.375 Gm Inj 3.375 GM in Dextrose 5% Minibag Plus 50 ML IV SCH (10:04)
[2017-02-27] MEDS: Fluticasone 0.05% 15 Spray/2 Gm 16 Gm Nasal Spray NASAL SCH (10:04)
[2017-02-27] MEDS: Insulin GLARgine 100 Unit/mL Syringe SUBQ SCH (10:06)
--- NOTE | 2017-02-27 12:07 | PCM.DIMED ---
Discharge Instructions Date of Service Feb 27, 2017 Dates of Hospitalization Feb 24, 2017 at 15:24 Discharge Diagnosis Discharge Diagnosis # acute on chronic hypoxic respiratory failure ,poa -due to fluid overload and HCAP # ESRD on HD with fluid overload #Acute on chronic systolic CHF -EF 40-45 #. Type 2 diabetes mellitus, chronic. Present on admission #. Hypothyroidism, chronic. Present on admission #. Asthma, chronic. Present on admission #. GERD, chronic. Present on admission #. Dyslipidemia, chronic. Present on admission #. Depression, chronic. Present on admission #. CAD with history of NSTEMI, chronic. Present on admission #. Hypertension, chronic. Present on admission #. Urinary incontinence, chronic. Present on admission Diet Discharge Diet: Low fat, Low Sodium, Heart Healthy, Diabetic Activity Discharge Activity: Limited until seen by PCP Call your provider Call your provider for: Fever or Chills, Shortness of breath, Bleeding, Chest pain, Vomitting, Excessive diarrhea, Weakness (unilateral) Patient Instructions Patient Instructions You were hospitalized to due to shortness of breath secondary to health care associated pneumonia and fluid overload. You have treated with IV antibiotics and emergent dialysis. Please continue Augmentin for 4 more days.It seems you may have obstructive sleep apnea/obesity hypoventilation syndrome. Please get a sleep study and pulmonary function tests with PCP. Follow-up Provider: Geronimo Main DO Follow-up with PCP in: 1 week Charlie Alvarez MD Feb 27, 2017 12:07
[2017-02-27] MEDS ORDERED: AMOX-363 PO (12:09)
[2017-02-27] MEDS: Ascorbic Acid 500 mg Tablet PO SCH (12:28)
--- NOTE | 2017-02-27 12:31 | PCM.DC.MED ---
Discharge Summary Date of Service Feb 27, 2017 Dates of Hospitalization Date of Hospital Admission Feb 24, 2017 at 15:24 Date of Discharge: Feb 27, 2017 Providers: Admitting Physician: Charlie Serrano MD Primary Care Physician: Geronimo Main DO Attending Physician: Charlie Serrano MD Diagnosis at Time of Discharge Diagnosis at Time of Discharge # acute on chronic hypoxic respiratory failure ,poa -due to fluid overload and HCAP # ESRD on HD with fluid overload #Acute on chronic systolic CHF -EF 40-45 #. Type 2 diabetes mellitus, chronic. Present on admission #. Hypothyroidism, chronic. Present on admission #. Asthma, chronic. Present on admission #. GERD, chronic. Present on admission #. Dyslipidemia, chronic. Present on admission #. Depression, chronic. Present on admission #. CAD with history of NSTEMI, chronic. Present on admission #. Hypertension, chronic. Present on admission #. Urinary incontinence, chronic. Present on admission Procedures XRay, CTs & MRIs PROCEDURE: X-RAY CHEST ONE VIEW, PORTABLE ([id number]) INDICATIONS: dyspnea TECHNIQUE: One view of the chest was acquired. COMPARISON: [facility], , XR CHEST 1VW (PORTABLE), 12/14/2016, 11: 11. FINDINGS: Surgical changes and devices: Right-sided dialysis catheter with tips in the mid SVC. Lungs and pleura: No pleural effusions or pneumothorax. Right basilar atelectasis otherwise the lungs are clear. Mediastinum: Enlarged cardiac mediastinal silhouette. Prominent perihilar vascularity. Bones and chest wall: No suspicious bony lesions. Overlying soft tissues appear unremarkable. IMPRESSION: Enlarged cardiac mediastinal silhouette and perihilar vascularity most consistent with fluid imbalance. Dictated by: Rao Rowland M.D. on 02/24/2017 at 13:53 ECG 12 Lead SR unchanged from prior Cardiac Echo Impression ECHO December 2016 Interpretation Summary There is moderate concentric left ventricular hypertrophy. The left ventricle is mildly dilated. The ejection fraction is estimated to be 40-45%. Global hypokinesis, moderate anteroseptal hypokinesis, There is mild mitral regurgitation. The aortic valve is mildly calcified. Leaflet mobility is moderately reduced. There is mild to moderate aortic stenosis. The aortic root is mildly dilated. Brief History per HPI 56-year-old lady with past medical history of ESRD on HD for 1 yr and 4 months, type II diabetes, chronic constipation, depression, hypertension, history of CAD , obesity was sdnt from [facility] Rodriguez's office when she gave history of worsening of her dyspnea and cough. patient states she had been having progressively worsening of her dyspnea for about a month with increasing oxygen requirement for abou a month. She states since her last hospitalization her breathing did not come back to baseline . She used to use O2 2 L only at night prior to last hospitalization but started to use 2 L day and night for about a month . She also notes she has been having generalized weakness and worsening of her dyspnea since 1 week ago. She also started to have produtive cough since 2 days . Today she went to Dr Rodriguez's office for a scheduled appointment for evaluation of her constipation. She was noted to dozz off and on further inquiry she reported her cough of 2 days, weakness and worsening dyspnea of 1 week which prompted referral to ED.cough id productive she states she never had sleep study and denies snoring ,BMI 47 she also states she had low grade fever at home. did not miss dialysis recently.last HD yesterday.denies sick contacts ED course : she was noted to desat to low 80's on her baseline 2L O2 and required 4 l to saturate in low 90's. EKG SR unchanged from prior. CXR fluid overload . proBNP > 70,000.wbc 14.,elevated procal at 2,trop elevated at 0.105 but not higher than prior levels. blood cx sent,ceftriaxone and azithromycin given,emergent HD arranged with nephrology and admission requested for acute on chronic hypoxic respiratory failure Hospital Course 56-year-old lady with past medical history of ESRD on HD for 1 yr and 4 months, type II diabetes, chronic constipation, depression, hypertension, history of CAD , obesity was sdnt from [facility] Rodriguez's office when she gave history of worsening of her dyspnea and cough. # acute on chronic hypoxic respiratory failure ,poa -due to fluid overload and HCAP -EKG SR unchanged from prior. CXR fluid overload . proBNP > 70,000.prior Echo EF 40-45%.received emergent HD and had some improvement -wbc 14.,elevated procal at 2,trop elevated at 0.105 but not higher than prior levels.ceftriaxone and azithromycin given in ED , switched to zosyn and vancomycin to cover HCAP on 02/25.MRSA nares negative. Blood culture negative. Discontinued vancomycin -Patient has improvement of dyspnea. Discharge on Augmentin for 4 more days. -Patient dozes off in to naps while having conversations. Very likely she has JEANETTE/OHS. Patient eventually needs sleep study and PFT to assess for JEANETTE./ OHS.advised patient to get this done. Patient reluctant to have the test and states she has claustrophobia and may not be able to tolerate any CPAP # ESRD on HD with fluid overload - HD later today before discharge #Acute on chronic systolic CHF -EF 40-45 -HD,home lasix ,BB ,ASA ,lisinopril -will not repeat echo #. Type 2 diabetes mellitus, chronic. Present on admission -Continue home dose Lantus BID -High dose correctional Lispro #. Hypothyroidism, chronic. Present on admission -Continue home dose levothyroxine #. Asthma, chronic. Present on admission -Albuterol PRN, DuoNeb QID #. GERD, chronic. Present on admission -Continue home dose PPI #. Dyslipidemia, chronic. Present on admission -Continue home dose statin #. Depression, chronic. Present on admission -Continue home dose Effexor #. CAD with history of NSTEMI, chronic. Present on admission -Continue home dose metoprolol, statin, ASA #. Hypertension, chronic. Present on admission -Continued home dose lisinopril, Lasix #. Urinary incontinence, chronic. Present on admission -Continued home dose oxybutynin inpatient Full code ,confirmed with patient disposition: Discharged back to [facility] Condition upon discharge improved Exam Vital Signs (Last) Date Time Temp Pulse Resp B/P Pulse Ox O2 Delivery O2 Flow Rate FiO2 02/27/17 11:45 Supplement Oxygen 02/27/17 09:57 36.8 74 22 117/75 95 2.00 Exam Gen. patient is lying comfortably in hospital bed.morbidly obeses HEENT: Head is normocephalic atraumatic, Pupils equal and reactive, extraocular movements intact, Lungs basal crackles bilaterally Heart regular rate and rhythm without murmurs gallops or rubs Abdomen soft nontender without hepatosplenomegaly Extremities pulses are present dorsalis pedis posterior tibialis and radial. Skin is warm and dry there are no rashes, Psych alert and oriented to person place and time Neuro cranial nerves II through XII are grossly intact Lymph: There is no lymphadenopathy appreciated in the cervical supra infraclavicular regions : no noel Test 02/24/17 13:40 02/25/17 05:35 02/26/17 05:14 Nucleated Red Blood Cells 1/100 WBC (0-24) Prothrombin Time 10.0sec (8.1-12.5) Prothromb Time International Ratio 0.94ratio Lactic Acid Level 0.8mmol/L (0.4-2.0) Pro-B-Type Natriuretic Peptide > 99200jg/mL (0-287) Lipase 20U/L (13-60) Band Neutrophils % 10% (1-5) Magnesium Level 2.0mg/dL (1.6-2.6) Troponin T 0.094ug/L (0.0-0.011) Procalcitonin 1.38ng/mL (0.00-0.08) White Blood Count 9.0th/mm3 (3.8-10.1) Red Blood Count 3.62mil/mm3 (3.90-5.20) Hemoglobin 10.6g/dL (12.0-15.6) Hematocrit 38.1% (35.0-46.0) Mean Corpuscular Volume 105.2fL (81-100) Mean Corpuscular Hemoglobin 29.3pg (27.0-35.0) Mean Corpuscular Hemoglobin Concent 27.8% (32.0-37.0) Red Cell Distribution Width 16.0% (12.3-15.4) Platelet Count 290bil/L (150-400) Neutrophils (%) (Auto) 72.9% (40-74) Lymphocytes (%) (Auto) 11.1% (14-46) Monocytes (%) (Auto) 14.0% (4-12) Eosinophils (%) (Auto) 1.4% (0-5) Basophils (%) (Auto) 0.2% (0-3) Sodium Level 140mEq/L (134-144) Potassium Level 3.8mEq/L (3.5-5.2) Chloride Level 101mEq/L (97-108) Carbon Dioxide Level 27mmol/L (18-29) Blood Urea Nitrogen 15mg/dL (6-24) Creatinine 2.34mg/dL (0.57-1.00) Estimat Glomerular Filtration Rate 31mL/min (>59) Glucose Level 184mg/dL (60-99) Calcium Level 9.2mg/dL (8.5-10.1) Total Bilirubin 0.3mg/dL (0.0-1.2) Aspartate Amino Transf (AST/SGOT) 7U/L (0-50) Alanine Aminotransferase (ALT/SGPT) 5U/L (0-32) Alkaline Phosphatase 112U/L (25-150) Total Protein 7.5g/dL (6.4-8.4) Albumin 3.8g/dL (3.4-5.0) Random Vancomycin Level 14.7ug/mL Rx Discharge Medications Discharge Medications Amoxicillin/Clav K 500-125 mg (Augmentin 500-125 mg) 1 Each Tablet 1 TABLET PO BID Prescribed by: CHARLIE SERRANO MD Ascorbate Calcium (Vitamin C) 500 Mg Tablet 500 MG PO DAILY (Reported) Aspirin (Aspirin) 81 Mg Tablet 81 MG PO DAILY (Reported) Atorvastatin Calcium (Atorvastatin Calcium) 80 Mg Tablet 80 MG PO HS (Reported) Calcium Polycarbophil (Calcium Polycarbophil) 625 Mg Tablet 625 MG PO Evening ( Reported) Docusate Sodium (Docusate Sodium) 250 Mg Capsule 250 MG PO BID (Reported) Furosemide (Furosemide) 80 Mg Tab 80 MG PO DAILY (Reported) Heparin Sodium,Porcine/Pf (Heparin Sod 5,000 Unit/ 0.5 ml) 5,000 Unit/0.5 Ml Vial 5,000 UNIT IJ BID Prescribed by: PROSPER VILLEGAS DO Insulin Glargine (Lantus U100 Insulin Vial) 100 Unit/Ml Vial 20 UNIT SUBQ BID ( Reported) Insulin Lispro (HumaLOG U100 Insulin Pen) 100 Unit/1 Ml Insuln.pen 10 UNIT SUBQ TIDAC (Reported) Insulin Lispro (HumaLOG U100 Insulin Pen) 100 Unit/1 Ml Insuln.pen 1 UNIT SUBQ TIDWM (Reported) Blood Sugar Lispro Correction <151 0 units 151-175 1 unit 176-200 2 units 201-225 3 units 226-250 4 units 251-275 5 units 276-300 6 units 301-325 7 units 326-350 8 units 351-375 9 units 376-400 10 units >400 12 units Check blood sugars before meals and at bedtime. Use correction factor only before meals. Levothyroxine (Levothyroxine) 100 Mcg Tablet 100 MCG PO DAILY (Reported) Lidocaine (Lidoderm) 700 Mg Adh..patch 1 PATCH TP DAILY (Reported) ON for 12hrs/ OFF for 12hrs Lisinopril (Lisinopril) 5 Mg Tablet 5 MG PO DAILY (Reported) Naloxegol Oxalate (Movantik) 12.5 Mg Tablet 25 MG PO QAM (Reported) Oxybutynin Chloride ER (Ditropan XL) 5 Mg Tab.er.24 10 MG PO DAILY (Reported) Polyethylene Glycol 3350 (Miralax) 17 Gm Powd.pack 17 GM PO HS (Reported) Pregabalin (Lyrica) 75 Mg Capsule 75 MG PO TID (Reported) Saccharomyces Boulardii (Florastor) 250 Mg Capsule 250 MG PO BID (Reported) Sennosides (Senna) 8.6 Mg Tablet 17.2 MG PO BID (Reported) Sevelamer Carbonate (Renvela) 800 Mg Tablet 800 MG PO TIDWM (Reported) Triamcinolone Acetonide (Nasacort) 10.8 Ml [place] 2 SPRAYS NS DAILY (Reported) Venlafaxine (Venlafaxine) 100 Mg Tablet 100 MG PO BIDWM (Reported) As needed Acetaminophen (Acetaminophen) 325 Mg Tablet 1-2 EACH PO Q4H PRN PRN For Pain ( Reported) Albuterol Sulfate (Ventolin HFA Inhaler) 200 Puff/18 Gm Inhaler 1-2 PUFF INH Q4 PRN PRN For Shortness of Breath (Reported) Bisacodyl (Dulcolax Rectal) 10 Mg Supp.rect 10 MG RC DAILY PRN PRN For Constipation (Reported) If no BMx12 shifts Hydromorphone (Hydromorphone) 2 Mg Tablet 2-6 MG PO Q4H PRN PRN Pain (Reported) Ipratropium/Albuterol Sulfate (Iprat-Albut 0.5-3(2.5) mg/3 mL Inhalant Soln) 3 Ml Ampul.neb 3 ML IH Q4 PRN PRN For Shortness of Breath (Reported) Melatonin (Melatonin) 3 Mg Tablet.er 3 MG PO PRN Insomnia (Reported) Methocarbamol (Methocarbamol) 500 Mg Tablet 1,000 MG PO Q6H PRN PRN For Pain ( Reported) Na Phos,M-B/Na Phos,Di-Ba (Fleet Enema) 133 Ml Enema 133 ML RC PRN For Constipation (Reported) If No BM in 15 shifts or 5 days Ondansetron (Ondansetron) 4 Mg Tablet 4 MG PO TID PRN PRN For Nausea (Reported) Followup Plan Disposition: [facility] Discharge Diet: Low fat, Low Sodium, Heart Healthy, Diabetic Discharge Activity: Limited until seen by PCP Patient Instructions You were hospitalized to due to shortness of breath secondary to health care associated pneumonia and fluid overload. You have treated with IV antibiotics and emergent dialysis. Please continue Augmentin for 4 more days.It seems you may have obstructive sleep apnea/obesity hypoventilation syndrome. Please get a sleep study and pulmonary function tests with PCP. Follow-up Provider: Geronimo Main DO Follow-up with PCP in: 1 week Time spent 35 minutes copies to: Geronimo Main Melaku MD Feb 27, 2017 12:31
--- NOTE | 2017-02-27 12:46 | DRSVH ---
PROCEDURE: X-RAY CHEST ONE VIEW, PORTABLE ([id number]) INDICATIONS: HCAP TECHNIQUE: One view of the chest was acquired. COMPARISON: [facility], CR, XR CHEST 1VW (PORTABLE), 02/24/2017, 13:21. FINDINGS: Surgical changes and devices: There is a double-lumen dialysis catheter with tip in superior vena cav a. Lungs and pleura: No pleural effusions or pneumothorax. Mild interstitial prominence suggesting mild pulmonary congestion. Mediastinum: Mediastinal contours appear normal. Heart size is mildly increased. Bones and chest wall: No suspicious bony lesions. Overlying soft tissues appear unremarkable. IMPRESSION: Stable chest. Dictated by: Masood Sahu M.D. on 02/27/2017 at 12:43 Approved by: Masood Sahu M.D. on 02/27/2017 at 12:44
[2017-02-27 13:40] VITALS: BP 130/91; PULSE 75
--- NOTE | 2017-02-27 13:49 | NUR ---
[place] [facility] [place] Pt alert and oriented. Cell phone and tablet taken along with her. Report given to Francy in [facility].
[2017-02-27] MEDS ORDERED: Artificial Tears 15 mL Ophthalmic Solution BOTH_EYES PRN (13:50)
--- NOTE | 2017-02-27 13:58 | NUR ---
Social Work: Discharge / Multidisciplinary Rounds Data: Pt is on day 3 of hospitalization. EMR reviewed, pt discussed in rounds. MD states pt is ready for d/c after dialysis today. COMMUNITY HE[employer] PROGRAM REPRESENTATIVE spoke with RN, pt will complete dialysis around 5:30pm today. BLS order acknowledged by COMMUNITY HE[employer] PROGRAM REPRESENTATIVE. BLS transportation by [facility] set up by COMMUNITY HEALTH PROGRAM REPRESENTATIVE for 6:00pm. COMMUNITY HEALTH PROGRAM REPRESENTATIVE spoke with Sonia at [facility], they are ready to take pt back today. Orders faxed, confirmed [facility] receipt. Pt will d/c from [facility] after dialysis. COMMUNITY HEALTH PROGRAM REPRESENTATIVE updated RN who will call [facility] with report. D/C folder ready at [facility]. COMMUNITY HEALTH PROGRAM REPRESENTATIVE explained BLS transportation cannot be preauthorized by insurance, pt states understanding. No further d/c planning needs at this time. COMMUNITY HEALTH PROGRAM REPRESENTATIVE will continue to follow. Assessment: Pt from SNF, LTC. Plan: Pt will d/c back to [facility] at 6:00pm. No further d/c planning needs at this time. COMMUNITY HEALTH PROGRAM REPRESENTATIVE will continue to follow. PAULA Contreras
--- NOTE | 2017-02-27 13:59 | PCM.PNNEPH ---
Subjective Date of Service Feb 27, 2017 Subjective more awake and alert. (+) productive cough. overall doing better. seen during HD today. Exam Vital Signs Vital Sign - Last Date Time Temp Pulse Resp B/P Pulse Ox O2 Delivery O2 Flow Rate FiO2 02/27/17 11:45 Supplement Oxygen 02/27/17 09:57 36.8 74 22 117/75 95 2.00 Intake and Output 02/26/17 02/26/17 02/27/17 Cumulative From/Thru 15:00 23:00 07:00 02/24/17 12:24 - 02/27/17 04:40 Intake Total 497 ml 57 ml 2400 ml Output Total 0 ml 5000 ml Balance 497 ml 57 ml -2600 ml Intake Oral 437 ml 1412 ml IV Total 60 ml 57 ml 988 ml Output Urine Total 0 ml 0 ml Ultrafiltrate 5000 ml # Bowel Movements 0 1 Exam General appearance: Obese. AAOX3. NAD. lying in bed comfortably. HEENT: Atraumatic. Moist mucous membranes. Mild pallor. Anicteric sclerae. No JVD. No lymphadenopathy. No thyroid enlargement. Heart: Regular rhythm. Normal S1, S2. Systolic murmur noted. Lungs: Fine crackles at the bases. No wheezing. Equal breath sounds bilaterally. No accessory muscle use. Abdomen: Soft, obese. Active bowel sounds. Nontender. Mild tenderness on the left lower quadrant given the bruised skin. Extremities: Chronic skin changes on the lower extremity. Positive for chronic lymphedema. Lab and Diagnostics Result Diagram: 02/26/1751302/26/17513 X-Rays, CTs and MRIs PROCEDURE: X-RAY CHEST ONE VIEW, PORTABLE ([id number]) INDICATIONS: dyspnea TECHNIQUE: One view of the chest was acquired. COMPARISON: [facility], CR, XR CHEST 1VW (PORTABLE), 12/14/2016, 11: 11. FINDINGS: Surgical changes and devices: Right-sided dialysis catheter with tips in the mid SVC. Lungs and pleura: No pleural effusions or pneumothorax. Right basilar atelectasis otherwise the lungs are clear. Mediastinum: Enlarged cardiac mediastinal silhouette. Prominent perihilar vascularity. Bones and chest wall: No suspicious bony lesions. Overlying soft tissues appear unremarkable. IMPRESSION: Enlarged cardiac mediastinal silhouette and perihilar vascularity most consistent with fluid imbalance. Dictated by: Rao Rowland M.D. on 02/24/2017 at 13:53 12-lead ECG SR unchanged from prior Cardiac Echo Impressions ECHO December 2016 Interpretation Summary There is moderate concentric left ventricular hypertrophy. The left ventricle is mildly dilated. The ejection fraction is estimated to be 40-45%. Global hypokinesis, moderate anteroseptal hypokinesis, There is mild mitral regurgitation. The aortic valve is mildly calcified. Leaflet mobility is moderately reduced. There is mild to moderate aortic stenosis. The aortic root is mildly dilated. Plan Impression 1. Shortness of breath secondary to fluid overload. improving. 2. Leukocytosis. Rule out healthcare associated pneumonia. 3. Altered mental status. Likely due to sepsis. resolved. 4. End-stage renal disease. On hemodialysis every Wednesday, , Wednesday. 4 hr, UF 2-3L as tolerated, DFR 600, BFR 400 2K, 35 HCO3, revaclear max, tunneled cath. 5. H/o calciphylaxis. 6. Longstanding type 2 diabetes, insulin dependent. 7. History of hypertension. PLAN: Next HD in am. Continue phosphate binders. Disposition as per primary care team. Mandi De La Rosa MD Feb 27, 2017 13:59
--- NOTE | 2017-02-27 14:43 | NUR ---
Transfer to [facility] Patient with multiple complaints upon assessment. Reports dry eyes, 6/10 headache, dry mouth, and an appetite with no lunch currently. Dr. Baumann present on unit. Ordered Tylenol. Called primary RN for eye drops and lunch tray. Patient currently sleeping.
--- NOTE | 2017-02-27 15:14 | NUR ---
Report called to Nay Gave report to Elda at [facility] in [place].
--- NOTE | 2017-02-27 18:00 | NUR ---
Dialysis note: 4 hrs tx 3000 ml net UF Right catheter, dsg dry and intact FATOUMATA fistula (+) thrill, area bruised and tender Pls see DTR for VS details Qb 400-450 Heparin given O2 @ 2 L via NC on Tylenol 650 mg po given by primary RN for headache and ear pain Tolerated tx, slept at intervals Catheter flushed, heparin dwelled and secured Stable condition at end of tx Report given to Arabella PORTILLO
--- NOTE | 2017-02-27 18:20 | NUR ---
Transfer to [place] Patient transported by BLS to SNF. Report given by primary RN. Belongings, including wheelchair, oxygen,phone, tablet and coloring books sent with patient. IV removed prior to discharge.
== END 2017-02-27 18:10 | DRG 291 ==
LOC: SED 12:21 → MPC 15:24 → MOC 02-27 16:06
PROVIDERS: ADMIT Internal Medicine; ATTEND Internal Medicine
PROC: 5A1D60Z (ICD-10-PCS; principal; 2017-02-24)
DX: I13.2 Hypertensive heart and chronic kidney disease with heart failure and with stage 5 chronic kidney disease, or end stage renal disease (principal); I50.23 Acute on chronic systolic (congestive) heart failure; J96.22 Acute and chronic respiratory failure with hypercapnia; N18.6 End stage renal disease; Z68.42 Body mass index [BMI] 45.0-49.9, adult; E03.9 Hypothyroidism, unspecified; J45.909 Unspecified asthma, uncomplicated; K21.9 Gastro-esophageal reflux disease without esophagitis; F32.9 Major depressive disorder, single episode, unspecified; R32 Unspecified urinary incontinence; I25.10 Atherosclerotic heart disease of native coronary artery without angina pectoris; E11.22 Type 2 diabetes mellitus with diabetic chronic kidney disease; E83.59 Other disorders of calcium metabolism; E78.2 Mixed hyperlipidemia; E66.01 Morbid (severe) obesity due to excess calories; Z99.2 Dependence on renal dialysis; Z99.81 Dependence on supplemental oxygen; Z79.82 Long term (current) use of aspirin; Z79.4 Long term (current) use of insulin; I25.2 Old myocardial infarction; Z79.51 Long term (current) use of inhaled steroids